=== PATIENT | female | born 1950 | race African-American/Black ===

== ENCOUNTER → 2020-01-09 | Outpatient (CLI) | payer OTHER, MEDICAID ==
[~2020-01-09] MED LIST: PRED50TA PO
--- NOTE | 2020-01-09 16:48 | RAD ---
EXAM: Left knee, 3 views. HISTORY: Fall. Pain. COMPARISON: None. FINDINGS: 3 views of the left knee are obtained. There is severe medial and patellofemoral compartment joint space narrowing, subchondral sclerosis and spurring. There is also mild lateral compartment spurring. There is a moderate joint effusion. There is no fracture, dislocation or subluxation. There is suspected genu varus. IMPRESSION: 1. Severe medial and patellofemoral compartment and mild lateral compartment osteoarthritis of the left knee. 2. Moderate left knee effusion. 3. Mild left genu varus. Electronically signed by: Ligia Mccoy MD (01/09/2020 4:45 PM) [id number]
--- NOTE | 2020-01-09 16:48 | RAD ---
EXAM: Right foot, 3 views. HISTORY: Pain. Fall. COMPARISON: None. FINDINGS: 3 views of the right foot are obtained. There is no acute fracture, dislocation or subluxation. There is degenerative spurring or there are chronic nonunited fracture fragments along the inferior medial malleolus. There is enthesopathy at Achilles tendon insertion. IMPRESSION: No acute osseous finding. Electronically signed by: Ligia Mccoy MD (01/09/2020 4:46 PM) [id number]
== END | disposition home or self-care (01) ==
LOC: DXRAD 15:42
PROVIDERS: ATTEND Physician Assistant
DX: M17.12 Unilateral primary osteoarthritis, left knee (principal); M76.61 Achilles tendinitis, right leg; M76.9 Unspecified enthesopathy, lower limb, excluding foot; M25.462 Effusion, left knee; M21.162 Varus deformity, not elsewhere classified, left knee
CPT/HCPCS: 73562; 73630

== ENCOUNTER 2020-01-12 16:28 | Emergency (ER) | payer OTHER, MEDICAID ==
[~2020-01-12] VITALS: Ht 152.4 cm; Wt 103.8 kg
[2020-01-12] MEDS ORDERED: IPRATROPIUM BROMIDE 0.5 MG/2.5 ML NEBU. ONE (17:10)
--- NOTE | 2020-01-12 17:11 | EKG ---
[address] [address] Test Date: 2020-01-12 Test Time: 16:48:52 Pat Name: ALIREZA PETERSON Department: Room: Gender: F Otorhinolaryngologist: : 1950 Requested By: NORA WU Order Number: [id number] Reading MD: Measurements Intervals [place] Rate: 96 P: 28 MO: 126 QRS: 38 QRSD: 76 T: 30 QT: 326 QTc: 418 Interpretive Statements SINUS RHYTHM R-S TRANSITION ZONE IN V LEADS DISPLACED TO THE RIGHT OTHERWISE NORMAL ECG RI6.02 No previous ECG available for comparison
[2020-01-12] MEDS ORDERED: methylPREDNISolone SOD SUCC PF 125 MG/2 ML VIAL. IV ONE (17:15)
[2020-01-12] MEDS ORDERED: ALBUTEROL SULFATE 2.5 MG/3 ML NEBU. NEB ONE (17:15)
[2020-01-12] MEDS ORDERED: IPRATRPIUM/ALBUTEROL 0.5/2.5MG 3 ML NEBU. NEB ONE (17:15)
--- NOTE | 2020-01-12 17:30 | RAD ---
EXAM: CHEST ONE VIEW. HISTORY: Cough. COMPARISON: None. FINDINGS: A frontal view of the chest is obtained. The inspiration is small. There is moderate elevation of the right hemidiaphragm. There is mild atelectasis in the lung bases. There is no pneumothorax or pleural effusion. The heart is not enlarged. IMPRESSION: 1. Small inspiration. Basilar atelectasis Electronically signed by: Jimmie Powell MD (01/12/2020 5:27 PM) [facility]
[2020-01-12 17:39] VITALS: BP 137/68
--- NOTE | 2020-01-12 17:41 | PHYS DOC ---
General Adult EDM: Chief Complaint: CHEST PAIN HPI: HPI: Patient is a 69-year-old non-smoking female with a history of oxygen dependent COPD. She presents today with a 12-hour history of progressive shortness of breath and lower extremity swelling. She states she has been taking her nebulizers as prescribed but continues to be more short of breath. She states she is coughing but it is nonproductive she does have some chest pain when she coughs. She denies hemoptysis.] (NORA WU DO) Review of Systems: Review of Systems: Constitutional: Denies fever or chills Eyes: Denies change in visual acuity HENT: Denies nasal congestion or sore throat Respiratory: Per HPI Cardiovascular: Denies chest pain or edema GI: Denies abdominal pain, nausea, vomiting, bloody stools or diarrhea : Denies dysuria Musculoskeletal: Denies back pain or joint pain Integument: Denies rash Neurologic: Denies headache, focal weakness or sensory changes Endocrine: Denies polyuria or polydipsia Lymphatic: Denies swollen glands Psychiatric: Reports anxiety (NORA WU DO) Heart Score: Risk Factors: Risk Factors: DM, Current or recent (<one month) smoker, HTN, HLP, family history of CAD, obesity. Risk Scores: Score 0 - 3: 2.5% MACE over next 6 weeks - Discharge Home Score 4 - 6: 20.3% MACE over next 6 weeks - Admit for Clinical Observation Score 7 - 10: 72.7% MACE over next 6 weeks - Early Invasive Strategies (NORA WU DO) Current Medications: Current Meds: Current Medications Medications (Trade) Dose Ordered Sig/Madhuri Start Time Stop Time Status Last Admin Dose Admin Albuterol Sulfate (Ventolin) 2.5 mg 1X ONCE 01/12/20 17:15 01/12/20 17:16 UNV 01/12/20 17:15 2.5 MG Albuterol/ Ipratropium (Duoneb) 6 ml 1X ONCE 01/12/20 17:15 01/12/20 17:16 UNV 01/12/20 17:31 6 ML Ipratropium [place] (Atrovent) 0.5 mg STK-MED ONCE 01/12/20 17:10 01/12/20 17:10 DC Methylprednisolone Sodium Succinate (SOLU-Medrol 125MG VIAL) 125 mg 1X ONCE 01/12/20 17:15 01/12/20 17:16 UNV 01/12/20 17:15 125 MG (NORA WU DO) Physical Exam: PE: Constitutional: Well developed, well nourished, mild respiratory distress, non- toxic appearance. [] HENT: Normocephalic, atraumatic, bilateral external ears normal, oropharynx moist, no oral exudates, nose normal. [] Eyes: PERRLA, EOMI, conjunctiva normal, no discharge. [] Neck: Normal range of motion, no tenderness, supple, no stridor. [] Cardiovascular:Heart rate regular rhythm, no murmur [] Lungs & Thorax: Scattered wheezes throughout both lungs no rales [] Abdomen: Bowel sounds normal, soft, no tenderness, no masses, no pulsatile masses. [] Skin: Warm, dry, no erythema, no rash. [] Back: No tenderness, no CVA tenderness. [] Extremities: 2+ lower extremity edema equal bilaterally. [] Neurologic: Alert and oriented X 3, normal motor function, normal sensory fu nction, no focal deficits noted. [] Psychologic: Anxious. [] (NORA WU DO) EKG: EKG: EKG: Normal sinus rhythm rate of [address]-T changes [] (NORA WU DO) Radiology/Procedures: Radiology/Procedures: [PROCEDURE: CHEST AP ONLY EXAM: CHEST ONE VIEW. HISTORY: Cough. COMPARISON: None. FINDINGS: A frontal view of the chest is obtained. The inspiration is small. There is moderate elevation of the right hemidiaphragm. There is mild atelectasis in the lung bases. There is no pneumothorax or pleural effusion. The heart is not enlarged. IMPRESSION: 1. Small inspiration. Basilar atelectasis] (NORA WU DO) Course & Med Decision Making: Course & Med Decision Making Pertinent Labs and Imaging studies reviewed. (See chart for details) [] (NORA WU DO) Course & Med Decision Making The patient is continued to maintain an oxygen saturation of 95%. She has not dropped below 90%. She is on her normal 3 L. She is still slightly tachycardic, but has had 2 DuoNeb treatments. Repeat exam shows some mild wheezing, but seems much better than what my colleague reported on her initial evaluation. The patient would like to go home. I believe this is reasonable. She will continue her breathing treatments. She has medication at home. I will give her 3 more days of prednisone 50 mg daily. She will start this tomorrow. She is stable for discharge at this time. (MIKI LENZ DO) Dragon Disclaimer: Dragon Disclaimer: This electronic medical record was generated, in whole or in part, using a voice recognition dictation system. (NORA WU DO) Departure Departure: Impression: Primary Impression: COPD with acute exacerbation Disposition: HOME/RESIDENCE PRIOR TO ADM Condition: STABLE Referrals: JAJA TRUONG MD (PCP) Patient Instructions: Chronic Obstructive Pulmonary Disease Exacerbation, Asxx-id-[id number] Scripts Prednisone (PREDNISONE) 50 Mg Tablet 1 TAB PO DAILY for COPD for 3 Days, #3 TAB Prov: MIKI LENZ DO 01/12/20 Justification of Admission: Justification of Admission: Justification of Admission Dx: N/A (MIKI LENZ DO) NORA WU DO Jan 12, 2020 17:40 MIKI LENZ DO Jan 12, 2020 19:15
[2020-01-12 17:56] LABS: BASO % 1 % (0-3); EOS # 0.2 x10^3/uL (0.0-0.7); EOS % 2 % (0-3); HEMATOCRIT 31.5 % (36.0-47.0); HEMOGLOBIN 9.6 g/dL (12.0-15.5); LYMPH # 1.1 x10^3/uL (1.0-4.8); LYMPH % 13 % (24-48); MEAN CORPUSCULAR HEMOGLOBIN 27 pg (25-35); MEAN CORPUSCULAR HGB CONC 31 g/dL (31-37); MEAN CORPUSCULAR VOLUME 88 fL (79-100); MONO # 0.8 x10^3/uL (0.0-1.1); MONO % 9 % (0-9); NEUT # 6.4 x10^3uL (1.8-7.7); NEUT % 75 % (31-73); PLATELET COUNT 284 x10^3/uL (140-400); RED BLOOD COUNT 3.59 x10^6/uL (3.50-5.40); RED CELL DISTRIBUTION WIDTH 16.2 % (11.5-14.5); WHITE BLOOD COUNT 8.5 x10^3/uL (4.0-11.0)
[2020-01-12 18:02] LABS: BACTERIA,URINE 0 /HPF (0-FEW); BILIRUBIN,URINE NEG (NEG); CLARITY,URINE HAZY; COLOR,URINE YELLOW; GLUCOSE,URINE NEG (NEG); NITRITE,URINE NEG (NEG); SQUAMOUS EPITHELIAL CELL,UR FEW /LPF; WBC,URINE OCC /HPF (0-4)
[2020-01-12 18:03] LABS: YEAST,URINE PRESENT /HPF
[2020-01-12 18:04] LABS: CALCIUM 8.6 mg/dL (8.5-10.1); CREATININE 0.8 mg/dL (0.6-1.0); GFR 85.6; POTASSIUM 3.7 mmol/L (3.5-5.1)
[2020-01-12 18:16] LABS: ALBUMIN 3.2 g/dL (3.4-5.0); ALBUMIN/GLOBULIN RATIO 0.8 (1.0-1.7); TOTAL BILIRUBIN 0.5 mg/dL (0.2-1.0); TOTAL PROTEIN 7.3 g/dL (6.4-8.2)
[2020-01-12] MEDS ORDERED: PRED50TA PO (19:15)
== END 2020-01-12 19:25 | disposition home or self-care (01) ==
LOC: ER 16:28
DX: J44.1 Chronic obstructive pulmonary disease with (acute) exacerbation (principal); R60.0 Localized edema; Z20.828 Contact with and (suspected) exposure to other viral communicable diseases
CPT/HCPCS: 36415; 71045; 80053; 81001; 83880; 84484; 85025; 93005; 94640; 96374; 99285; J2930; J7613; U0003

== ENCOUNTER 2020-02-02 12:50 | Inpatient (IN) | payer OTHER, MEDICAID ==
[~2020-02-02] VITALS: Ht 152.4 cm; Wt 95.3 kg
--- NOTE | 2020-02-02 12:52 | PHYS DOC ---
Past History Past Medical History: Anxiety, COPD, Depression, High Cholesterol, Hypertension Past Surgical History: No Surgical History Smoking: Non-smoker Alcohol Use: None General Adult EDM: Chief Complaint: SHORTNESS OF BREATH HPI: HPI: Patient is a 69 year old female who presents via EMS for evaluation of shortness of air and bilateral leg swelling and pain. Patient currently lives at home alone. Her symptoms been progressing for the past several days. Patient reports cough and recent fever and chills. Patient is had multiple negative COVID swabs. Patient does have history of pulmonary embolism in the past and is currently taking an unknown blood thinner. Patient has some mild conversational dyspnea on arrival. Vital signs were stable on arrival Review of Systems: Review of Systems: Constitutional: recent fever or chills Eyes: Denies change in visual acuity HENT: has nasal congestion no sore throat Respiratory: has cough and shortness of breath Cardiovascular: Denies chest pain bilateral lower leg edema GI: Denies abdominal pain, nausea, vomiting, bloody stools or diarrhea : Denies dysuria Musculoskeletal: Denies back pain or joint pain Integument: Denies rash Neurologic: Denies headache, focal weakness or sensory changes Endocrine: Denies polyuria or polydipsia Lymphatic: Denies swollen glands Psychiatric: Denies depression or anxiety Heart Score: Risk Factors: Risk Factors: DM, Current or recent (<one month) smoker, HTN, HLP, family history of CAD, obesity. Risk Scores: Score 0 - 3: 2.5% MACE over next 6 weeks - Discharge Home Score 4 - 6: 20.3% MACE over next 6 weeks - Admit for Clinical Observation Score 7 - 10: 72.7% MACE over next 6 weeks - Early Invasive Strategies Allergies: Allergies: Allergies Coded Allergies Type Severity Reaction Last Updated Verified No Known Drug Allergies 01/12/20 No Physical Exam: PE: Constitutional: Well developed, well nourished, moderate acute distress. [] HENT: Normocephalic, atraumatic, bilateral external ears normal, oropharynx moist, no oral exudates, nose normal. [] Eyes: PERRL, EOMI, conjunctiva normal, no discharge. [] Neck: Normal range of motion, no tenderness, supple, no stridor. [] Cardiovascular:Heart rate regular rhythm, no murmur [] Lungs & Thorax: Bilateral breath sounds clear to auscultation [] Abdomen: Bowel sounds diminished, soft, no tenderness, no masses. [] Skin: Warm, dry, lower leg bilateral erythema. [] Back: No tenderness, no CVA tenderness. [] Extremities: bilateral tenderness, no cyanosis, ROM intact, pitting edema. [] Neurologic: Alert and oriented X 3, normal motor function, normal sensory function, no focal deficits noted. [] Psychologic: Affect normal, judgement normal, mood normal. [] Current Patient Data: Labs: Laboratory Tests Test 02/02/20 13:08 02/02/20 13:15 Urine Collection Type Unknown Urine Color Yellow Urine Clarity Clear Urine pH 8.0 Urine Specific [place] 1.020 Urine Protein Neg Urine Glucose (UA) Neg mg/dL Urine Ketones (Stick) Neg mg/dL Urine Blood Neg Urine Nitrite Neg Urine Bilirubin Neg Urine Urobilinogen Dipstick 0.2 mg/dL Urine Leukocyte Esterase Neg Urine RBC 1-2 /HPF Urine WBC Occ /HPF Urine Squamous Epithelial Cells Few /LPF Urine Bacteria 0 /HPF White Blood Count 5.2 x10^3/uL Red Blood Count 3.81 x10^6/uL Hemoglobin 10.3 g/dL Hematocrit 33.6 % Mean Corpuscular Volume 88 fL Mean Corpuscular Hemoglobin 27 pg Mean Corpuscular Hemoglobin Concent 31 g/dL Red Cell Distribution Width 16.1 % Platelet Count 312 x10^3/uL Neutrophils (%) (Auto) 72 % Lymphocytes (%) (Auto) 15 % Monocytes (%) (Auto) 10 % Eosinophils (%) (Auto) 2 % Basophils (%) (Auto) 0 % Neutrophils # (Auto) 3.7 x10^3uL Lymphocytes # (Auto) 0.8 x10^3/uL Monocytes # (Auto) 0.5 x10^3/uL Eosinophils # (Auto) 0.1 x10^3/uL Basophils # (Auto) 0.0 x10^3/uL Prothrombin Time 10.2 SEC Prothromb Time International Ratio 1.0 Sodium Level 142 mmol/L Potassium Level 4.2 mmol/L Chloride Level 100 mmol/L Carbon Dioxide Level 42 mmol/L Anion Gap 0 Blood Urea Nitrogen 8 mg/dL Creatinine 0.9 mg/dL Estimated GFR (Cockcroft-Gault) 74.7 BUN/Creatinine Ratio 9 Glucose Level 90 mg/dL Lactic Acid Level 0.8 mmol/L Calcium Level 9.1 mg/dL Total Bilirubin 0.2 mg/dL Aspartate Amino Transf (AST/SGOT) 16 U/L Alanine Aminotransferase (ALT/SGPT) 17 U/L Alkaline Phosphatase 96 U/L Troponin I Quantitative < 0.017 ng/mL MI-Pcn-H-Type Natriuretic Peptide 53 pg/mL Total Protein 7.4 g/dL Albumin 3.1 g/dL Albumin/Globulin Ratio 0.7 Current Medications Medications (Trade) Dose Ordered Sig/Madhuri Route PRN Reason Start Time Stop Time Status Last Admin Dose Admin Sodium Chloride (Normal Saline Flush) 10 ml 1X ONCE IV 02/02/20 13:00 02/02/20 13:02 DC Ceftriaxone Sodium 1 gm/ Sodium Chloride 50 ml @ 100 mls/hr 1X ONCE IV 02/02/20 13:15 02/02/20 13:44 DC 02/02/20 13:28 Sodium Chloride 50 ml @ As Directed STK-MED ONCE .ROUTE 02/02/20 13:22 02/02/20 13:22 DC Ceftriaxone Sodium (Rocephin) 1 gm STK-MED ONCE .ROUTE 02/02/20 13:22 02/02/20 13:22 DC EKG: EKG: EKG showed normal sinus rhythm, rate mid 90s, leftward axis, significant artifact in lead V6, not STEMI read at 1:10 PM [] Radiology/Procedures: Radiology/Procedures: [place] [address] IMAGING REPORT Signed PATIENT: ALIREZA PETERSON JACCOUNT: [id number] : 1950 LOCATION: ER AGE: 69 SEX: F EXAM STATUS: REG ER ORD. PHYSICIAN: ANNELISE RODRÍGUEZ DO REASON: short of air PROCEDURE: PORTABLE CHEST 1V Examination: PORTABLE CHEST 1V History: Reason: short of air / Spl. Instructions: / History: Comparison/Correlation: 01/12/2020 AP view of the chest Findings: Portable frontal view chest was obtained. Borderline cardiomegaly noted. Evaluation of the retrocardiac region is limited due to underpenetrated technique. Pulmonary vasculature is borderline appearance but limited pulmonary inflation may partially account for this finding. No definite or significant pleural effusion. Impression: No definite infiltrate. Consider lateral view for more complete assessment of the lung bases if needed. Electronically signed by: Nelson Mccormick MD (02/02/2020 1:41 PM) [id number] DICTATED AND SIGNED BY: NELSON MCCORMICK MD DATE: 02/02/20 1342 CC: JAJA TRUONG MD; ANNELISE RODRÍGUEZ DO ~ [] Course & Med Decision Making: Course & Med Decision Making Pertinent Labs and Imaging studies reviewed. (See chart for details) [] Dragon Disclaimer: Dragon Disclaimer: This electronic medical record was generated, in whole or in part, using a voice recognition dictation system. 1530 Dr. Miranda called back and accepted patient for admission. Will admit to telemetry bed. Patient was given Solu-Medrol as well as Rocephin. Blood cultures were collected as well. Patient breathing easier at this time. Departure Departure: Impression: Primary Impression: Acute bronchitis with COPD Additional Impression: Person under investigation for COVID-19 Disposition: ADMITTED INPATIENT (Dr. Miranda to admit to telemetry bed) Admitting Physician: Nina Miranda Condition: STABLE Referrals: JAJA TRUONG MD (PCP) Justification of Admission: Justification of Admission: Justification of Admission Dx: Yes Acute COPD Exacerbation: Acute COPD Exacerbation ANNELISE RODRÍGUEZ DO Feb 02, 2020 12:52
[2020-02-02] MEDS ORDERED: 0.9 % SODIUM CHLORIDE 10 ML DISP.SYRIN. IV ONE (13:00)
[2020-02-02] MEDS ORDERED: cefTRIAXone SODIUM 1 GM VIAL ONE (13:22)
[2020-02-02] MEDS ORDERED: IV NORMAL SALINE 50ML 50 ML ONE (13:22)
[2020-02-02 13:42] LABS: BASO % 0 % (0-3); EOS # 0.1 x10^3/uL (0.0-0.7); EOS % 2 % (0-3); HEMATOCRIT 33.6 % (36.0-47.0); HEMOGLOBIN 10.3 g/dL (12.0-15.5); LYMPH # 0.8 x10^3/uL (1.0-4.8); LYMPH % 15 % (24-48); MEAN CORPUSCULAR HEMOGLOBIN 27 pg (25-35); MEAN CORPUSCULAR HGB CONC 31 g/dL (31-37); MEAN CORPUSCULAR VOLUME 88 fL (79-100); MONO # 0.5 x10^3/uL (0.0-1.1); MONO % 10 % (0-9); NEUT # 3.7 x10^3uL (1.8-7.7); NEUT % 72 % (31-73); PLATELET COUNT 312 x10^3/uL (140-400); RED BLOOD COUNT 3.81 x10^6/uL (3.50-5.40); RED CELL DISTRIBUTION WIDTH 16.1 % (11.5-14.5); WHITE BLOOD COUNT 5.2 x10^3/uL (4.0-11.0)
--- NOTE | 2020-02-02 13:43 | RAD ---
Examination: PORTABLE CHEST 1V History: Reason: short of air / Spl. Instructions: / History: Comparison/Correlation: 01/12/2020 AP view of the chest Findings: Portable frontal view chest was obtained. Borderline cardiomegaly noted. Evaluation of the retrocardiac region is limited due to underpenetrated technique. Pulmonary vasculature is borderline appearance but limited pulmonary inflation may partially account for this finding. No definite or significant pleural effusion. Impression: No definite infiltrate. Consider lateral view for more complete assessment of the lung bases if needed. Electronically signed by: Nelson Allred MD (02/02/2020 1:41 PM) [id number]
[2020-02-02 14:00] LABS: ALBUMIN 3.1 g/dL (3.4-5.0); ALBUMIN/GLOBULIN RATIO 0.7 (1.0-1.7); CALCIUM 9.1 mg/dL (8.5-10.1); CREATININE 0.9 mg/dL (0.6-1.0); GFR 74.7; POTASSIUM 4.2 mmol/L (3.5-5.1); TOTAL BILIRUBIN 0.2 mg/dL (0.2-1.0); TOTAL PROTEIN 7.4 g/dL (6.4-8.2)
[2020-02-02 14:04] LABS: BACTERIA,URINE 0 /HPF (0-FEW); BILIRUBIN,URINE NEG (NEG); CLARITY,URINE CLEAR; COLOR,URINE YELLOW; GLUCOSE,URINE NEG (NEG); NITRITE,URINE NEG (NEG); SQUAMOUS EPITHELIAL CELL,UR FEW /LPF; UROBILINOGEN,URINE 0.2 mg/dL (0.2 mg/dL); WBC,URINE OCC /HPF (0-4)
[2020-02-02] MEDS ORDERED: methylPREDNISolone SOD SUCC PF 125 MG/2 ML VIAL. IV ONE (15:00)
[2020-02-02] MEDS ORDERED: ONDANSETRON PF 4 MG/2 ML VIAL. IVP PRN (15:45)
[2020-02-02] MEDS ORDERED: AZITHROMYCIN 250 MG TABLET. PO ONE (19:00)
[2020-02-02] MEDS ORDERED: ACETAMINOPHEN 325 MG TABLET PO ONE (19:15)
[2020-02-02] MEDS: DULoxetine HCL 60 MG CAPSULE.DR PO SCH (20:57)
[2020-02-02] MEDS: METOPROLOL TART IMMED RELEASE 50 MG TABLET PO SCH (20:58)
[2020-02-02] MEDS: GABAPENTIN 300 MG CAPSULE. PO SCH (20:58)
[2020-02-02] MEDS: MONTELUKAST 10 MG TABLET. PO SCH (20:58)
[2020-02-02] MEDS: APIXABAN 5 MG TABLET. PO SCH (20:58)
[2020-02-02] MEDS: ATORVASTATIN CALCIUM 20 MG TABLET PO SCH (20:59)
[2020-02-02] MEDS ORDERED: MONTELUKAST 10 MG TABLET. PO SCH (21:00)
[2020-02-02] MEDS: PANTOPRAZOLE 40 MG TABLET. PO SCH (21:00)
[2020-02-02] MEDS: methylPREDNISolone SOD SUCC PF 40 MG/ML VIAL. IV SCH (21:01)
[2020-02-02 21:18] VITALS: BP 143/69
[2020-02-02] MEDS: DOXEPIN HCL 10 MG CAPSULE PO SCH (21:34)
[2020-02-03] MEDS: methylPREDNISolone SOD SUCC PF 40 MG/ML VIAL. IV SCH ×3 (05:59→21:05)
[2020-02-03 07:00] VITALS: BP 131/76
[2020-02-03] MEDS: ASPIRIN ENTERIC COATED 81 MG TABLET.DR. PO SCH (08:32)
[2020-02-03] MEDS: APIXABAN 5 MG TABLET. PO SCH ×2 (08:32→21:05)
[2020-02-03] MEDS: amLODIPine BESYLATE 10 MG TABLET PO SCH (08:32)
[2020-02-03] MEDS: METOPROLOL TART IMMED RELEASE 50 MG TABLET PO SCH ×2 (08:32→21:06)
[2020-02-03] MEDS: LACTOBACILLUS RHAMNOSUS GG 1 CAPSULE. PO SCH ×2 (08:32→21:06)
[2020-02-03] MEDS: PANTOPRAZOLE 40 MG TABLET. PO SCH ×2 (08:32→18:04)
[2020-02-03 11:00] VITALS: BP 131/80
[2020-02-03 15:00] VITALS: BP 140/85
--- NOTE | 2020-02-03 18:12 | HP ---
ADMIT DATE: 02/02/2020 HISTORY OF PRESENT ILLNESS: The patient is a 69-year-old -[place] female patient who was brought to the Emergency Room by EMS for evaluation of shortness of air and bilateral leg swelling and pain. The patient currently lives at home alone. Her symptoms have been progressing for the past several days. The patient reports cough and recent fever and chills. The patient has multiple negative COVID swabs, has had a history of pulmonary embolism in the past and is currently taking an unknown blood thinner. The patient has some mild conversational dyspnea on arrival. By the time she arrived to the Emergency Room, her vital signs apparently were stable. She was extensively investigated in the Emergency Room and has had a chest x-ray, which basically showed pulmonary vasculature is borderline appearance, but limited and pulmonary infiltration may particular account for this finding. No definite or significant pleural effusion. Her white cell count was 5200. Her lab work was essentially unremarkable. Her prothrombin time and INR were normal. Urinalysis was essentially unremarkable and the patient was admitted with acute bronchitis with possible COPD exacerbation. She apparently swabbed for COVID-19; however, she was negative as she had swab at her primary care physician, Dr. Serrano that was negative. The patient was treated with IV Solu-Medrol and Rocephin, was admitted for further evaluation and treatment. PAST MEDICAL HISTORY: Significant for asthmatic bronchitis versus COPD, hyperlipidemia, hypertension, generalized osteoarthritis, pulmonary embolism and chronic hypoxic respiratory failure. 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 PAST SURGICAL HISTORY: Left wrist fracture, she is status post open reduction and internal fixation. She has also , esophagogastroduodenoscopy and colonoscopy. ALLERGIES: SHE IS ALLERGIC TO KEPPRA THAT WAS GIVEN TO HER BY MISTAKE, BUT SHE HAS NO KNOWN OTHER DRUG ALLERGIES. MEDICATIONS: We do not know her medication list and we would contact her [id number] to give us the list of medication. FAMILY HISTORY: She has 6 brothers, 4 because of myocardial infarction, CVA. She has 2 brothers still alive. She has 4 sisters, two of them at childhood and one of heart failure. Her father at the age of 76 because of myocardial infarction. Mother at age of 71 because of myocardial infarction. SOCIAL HISTORY: She is in the process of her . She has one son. She never smoked, never drink alcohol or use any drugs. 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 She has also been a [employer]. REVIEW OF SYSTEMS: The patient has bilateral cataracts, but that has not been operated on, but denied any glaucoma or macular degeneration. Denied any earache, tinnitus or sensorineural deafness. Denied any nosebleeds, stuffy nose or postnasal drip. Denied any sore throat, sore tongue, toothache, hoarseness of voice or difficulty swallowing. Denied any nausea, vomiting, diarrhea or constipation. Denied any hematemesis, melena, or hematochezia. Denied any dysuria, frequency or hematuria. Did complain of chest discomfort, cough or shortness of breath. Denied any orthopnea or paroxysmal nocturnal dyspnea. PHYSICAL EXAMINATION: GENERAL: On arrival to the Emergency Room, she was definitely tachypneic and was pale, but no jaundice, cyanosis or thyromegaly. No jugular venous distention. No limb edema. VITAL SIGNS: Her heart rate was 93, blood pressure was 139/89, temperature was 99, respiratory rate was 40 and oxygen saturation was 97%. She is on 3 liters oxygen by nasal cannula. HEAD, EYES, EARS, NOSE AND THROAT: Showed normocephalic, atraumatic. NECK: Supple. HEART: Normal first and second heart sounds. No gallop, rub or murmur. CHEST: Shows central trachea, equal bilateral expansion, air entry, vesicular sounds with scattered bilateral crepitation. This seems to be coarse and early inspiratory perhaps indicating some form of interstitial lung disease. ABDOMEN: Markedly distended, soft, nontender. NEUROLOGICALLY: She was awake, alert, responding appropriately. EXTREMITIES: She moves extremities without difficulty. She ambulates with a walker. She has marked bilateral lower extremity edema. LABORATORY DATA: Her lab work on arrival showed a white cell count of 5200, hemoglobin 10, hematocrit 33, MCV 88, and platelet count of 312,000. Her serum sodium was 142, potassium 4.2, chloride 100, bicarbonate 42, anion gap of 0, BUN of 8, creatinine was 0.9, estimated GFR was 75 mL per minute. Her glucose was 90. Lactic acid was 0.8, calcium was 9.1. Total bilirubin, AST, ALT, alkaline phosphatase were normal. Total protein was 7.4, albumin was 3.1. Her prothrombin time, INR and aPTT are normal. Urinalysis essentially unremarkable. She was swabbed and her COVID (coronavirus) by PCR was not detectable. Her chest x-ray was unremarkable. ASSESSMENT AND PLAN: The patient was treated with IV Solu-Medrol as well as azithromycin and was admitted and continued on ceftriaxone and methylprednisone and apixaban together with other medications that include doxepin 60 mg once a day, metoprolol 50 mg twice a day, Protonix 40 mg twice a day, gabapentin 300 mg at bedtime, duloxetine 60 mg at bedtime, atorvastatin 80 mg at bedtime, Singulair 10 mg at bedtime, guaifenesin 600 mg twice a day, albuterol 2.5 mg by nebulizer every 6 hours. We will follow her labs and decide on further management accordingly. NELSON HALLMAN MD DR: TYLER/kathy JOB#: [id number] / [id number]
[2020-02-03 19:00] VITALS: BP 135/82
--- NOTE | 2020-02-03 19:10 | PN ---
DATE: 02/03/2020 SUBJECTIVE: When I examined her today, she was sitting on the edge of the bed, continued to have some conversational dyspnea, cough, which is mostly dry and hacking. PHYSICAL EXAMINATION: GENERAL: When I examined her, she looked pale, no jaundice, cyanosis or thyromegaly. No jugular venous distention or limb edema. VITAL SIGNS: Her heart rate was 96, blood pressure 131/80, temperature 96.9, respiratory rate was 27 and oxygen saturation was 92% on 3 liters of oxygen. HEAD, EYES, EARS, NOSE, AND THROAT: Normocephalic, atraumatic. NECK: Supple. HEART: Showed normal first and second heart sounds. No gallop or murmur. CHEST: Clear to auscultation. Equally reduced expansion, reduced air entry, vesicular sounds with bilateral basal crepitation that are coarse and early inspiratory. I could not appreciate any rhonchi. ABDOMEN: Distended, soft, nontender. NEUROLOGIC: She is awake, alert, responding appropriately. Cranial nerves are intact. She moves extremities without difficulty. LABORATORY DATA: She has no lab work done today; however, her white cell count was 5200, hemoglobin 10, hematocrit 33, MCV 88, and platelet count 312,000. Her BUN is 8 and creatinine was 0.9. ASSESSMENT: 1. Probably community-acquired pneumonia. 2. Acute on chronic hypoxic respiratory failure. 3. Chronic obstructive pulmonary disease exacerbation. She has a multitude of other medical problems including hypertension, hyperlipidemia. She also has history of pulmonary embolism. PLAN: To continue with IV antibiotic. Continue with Solu-Medrol and bronchodilator. Continue with all her other medications. I will repeat all her lab work. I started her empirically on apixaban. She does not know her blood thinner and we will contact Dr. Serrano's office to get all the information. NELSON HALLMAN MD DR: TYLER/kathy JOB#: [id number] / [id number]
[2020-02-03] MEDS: DOXEPIN HCL 10 MG CAPSULE PO SCH (21:00)
[2020-02-03] MEDS: AZITHROMYCIN 250 MG TABLET. PO SCH (21:05)
[2020-02-03] MEDS: GABAPENTIN 300 MG CAPSULE. PO SCH (21:06)
[2020-02-03] MEDS: ATORVASTATIN CALCIUM 20 MG TABLET PO SCH (21:06)
[2020-02-03] MEDS: MONTELUKAST 10 MG TABLET. PO SCH (21:06)
[2020-02-03] MEDS: DULoxetine HCL 60 MG CAPSULE.DR PO SCH (21:06)
[2020-02-03 23:00] VITALS: BP 128/73
[2020-02-03] MEDS: ALBUTEROL SULFATE 2.5 MG/3 ML NEBU. NEB PRN (23:12)
[2020-02-04] VITALS (8 sets, daily range): BP systolic 100–151; BP diastolic 43–78
[2020-02-04] MEDS: methylPREDNISolone SOD SUCC PF 40 MG/ML VIAL. IV SCH ×3 (05:32→20:10)
[2020-02-04 06:16] LABS: HEMATOCRIT 32.6 % (36.0-47.0); RED BLOOD COUNT 3.75 x10^6/uL (3.50-5.40); RED CELL DISTRIBUTION WIDTH 15.8 % (11.5-14.5); WHITE BLOOD COUNT 7.9 x10^3/uL (4.0-11.0)
[2020-02-04 06:30] LABS: ALBUMIN 3.3 g/dL (3.4-5.0); ALBUMIN/GLOBULIN RATIO 0.8 (1.0-1.7); CREATININE 0.8 mg/dL (0.6-1.0); GFR 85.6; POTASSIUM 4.5 mmol/L (3.5-5.1); TOTAL BILIRUBIN 0.2 mg/dL (0.2-1.0); TOTAL PROTEIN 7.6 g/dL (6.4-8.2)
[2020-02-04] MEDS: ACETAMINOPHEN 325 MG TABLET PO PRN (06:54)
[2020-02-04] MEDS: APIXABAN 5 MG TABLET. PO SCH ×2 (08:34→20:11)
[2020-02-04] MEDS: LACTOBACILLUS RHAMNOSUS GG 1 CAPSULE. PO SCH ×2 (08:34→20:11)
[2020-02-04] MEDS: PANTOPRAZOLE 40 MG TABLET. PO SCH ×2 (08:34→18:34)
[2020-02-04] MEDS: ASPIRIN ENTERIC COATED 81 MG TABLET.DR. PO SCH (08:34)
[2020-02-04] MEDS: amLODIPine BESYLATE 10 MG TABLET PO SCH (08:34)
[2020-02-04] MEDS: METOPROLOL TART IMMED RELEASE 50 MG TABLET PO SCH ×2 (08:35→20:12)
[2020-02-04] MEDS ORDERED: POTA10TA5 PO (13:12)
[2020-02-04] MEDS ORDERED: FUROSEMIDE 20 MG/2 ML VIAL IVP ONE (13:15)
--- NOTE | 2020-02-04 14:38 | PN ---
DATE: 02/04/2020 SUBJECTIVE: The patient is sitting on the edge of the bed, eating her lunch. She continued to have conversational dyspnea. She also complained of dyspnea on minimal exertion. PHYSICAL EXAMINATION: GENERAL: When I examined her, she looked pale, no jaundice, cyanosis or thyromegaly. No jugular venous distention. No limb edema. VITAL SIGNS: Her heart rate was 92, blood pressure was 128/73, temperature was 98.4, respiratory rate was 28 and oxygen saturation was 98% on 3 liters of oxygen. HEENT: Showed normocephalic, atraumatic. NECK: Supple. CARDIAC: Normal first and second heart sounds. No gallop, rub or murmur. CHEST: Shows central trachea, equally reduced expansion, reduced air entry, vesicular sounds with bilateral basal crepitation. I could not really appreciate any rhonchi. ABDOMEN: Distended, soft, nontender. NEUROLOGIC: She was awake, alert, responding appropriately. All cranial nerves intact. She moves extremities without difficulty. She ambulates with a walker. Her intake and output were incompletely recorded. LABORATORY DATA: Her lab work this morning showed a white cell count 7900, hemoglobin 10, hematocrit 33, MCV 87, and platelet count 358,000. Her chemistry showed a serum sodium 140, potassium 4.5, chloride 98, bicarbonate 39, anion gap of 3, BUN 16, creatinine 0.8, estimated GFR was 85 mL per minute, her glucose 125, calcium was 9. Total bilirubin, AST, ALT, alkaline phosphatase were normal. Total protein was 7.6, albumin was 3.3. Her prothrombin time and INR are normal and her coronavirus by PCR was not detected. ASSESSMENT: 1. Acute on chronic hypoxic respiratory failure. 2. Chronic obstructive pulmonary disease exacerbation, probable community-acquired pneumonia. 3. 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 She has also pulmonary embolism for which he is on apixaban. Other medical problems include hypertension, hyperlipidemia. PLAN: My plan is to continue with IV antibiotic. Continue with steroids, continue with inhalers. I will add Lasix 20 mg once a day. She will be evaluated tomorrow by Dr. Dyson and if she feels better, she can be discharged home to follow with her doctor Dr. Serrano. I recommended that she should perhaps make an appointment to be seen by one of the correctional captain at [facility]. NELSON HALLMAN MD DR: TYLER/kathy JOB#: [id number] / [id number]
[2020-02-04 16:34] LABS: BGAS PH 7.3 (7.35-7.45)
[2020-02-04] MEDS: LORazepam 0.5 MG TABLET PO PRN (18:34)
[2020-02-04] MEDS: ATORVASTATIN CALCIUM 20 MG TABLET PO SCH (20:11)
[2020-02-04] MEDS: DULoxetine HCL 60 MG CAPSULE.DR PO SCH (20:11)
[2020-02-04] MEDS: AZITHROMYCIN 250 MG TABLET. PO SCH (20:11)
[2020-02-04] MEDS: MONTELUKAST 10 MG TABLET. PO SCH (20:11)
[2020-02-04] MEDS: GABAPENTIN 300 MG CAPSULE. PO SCH (20:11)
[2020-02-04] MEDS: DOXEPIN HCL 10 MG CAPSULE PO SCH (20:11)
[2020-02-04 20:51] LABS: BGAS PH 7.33 (7.35-7.45)
[2020-02-05] VITALS (23 sets, daily range): BP systolic 105–169; BP diastolic 53–93
[2020-02-05] MEDS: ACETAMINOPHEN 325 MG TABLET PO PRN (02:00)
[2020-02-05 05:53] LABS: BGAS PH 7.36 (7.35-7.45)
[2020-02-05] MEDS: methylPREDNISolone SOD SUCC PF 40 MG/ML VIAL. IV SCH ×3 (06:07→21:59)
[2020-02-05 09:14] LABS: BGAS PH 7.41 (7.35-7.45)
[2020-02-05] MEDS: FUROSEMIDE 20 MG TABLET PO SCH (09:14)
[2020-02-05] MEDS: ASPIRIN ENTERIC COATED 81 MG TABLET.DR. PO SCH (09:14)
[2020-02-05] MEDS: APIXABAN 5 MG TABLET. PO SCH ×2 (09:14→20:40)
[2020-02-05] MEDS: LACTOBACILLUS RHAMNOSUS GG 1 CAPSULE. PO SCH ×2 (09:14→20:41)
[2020-02-05] MEDS: METOPROLOL TART IMMED RELEASE 50 MG TABLET PO SCH ×2 (09:15→20:40)
[2020-02-05] MEDS: PANTOPRAZOLE 40 MG TABLET. PO SCH ×2 (09:15→16:51)
[2020-02-05] MEDS: amLODIPine BESYLATE 10 MG TABLET PO SCH (09:15)
--- NOTE | 2020-02-05 10:14 | PN ---
DATE: 02/05/2020 ATTENDING PHYSICIAN: Dr. Miranda CHIEF COMPLAINT: Shortness of breath. SUBJECTIVE: The patient says that she is still weak and tired. She is tolerating the BiPAP. The BiPAP seems to help. OBJECTIVE FINDINGS: VITAL SIGNS: Her blood pressure today is 129/68 mmHg. She is afebrile. Oxygen saturation 90% on BiPAP. HEENT: Head is without trauma. Pupils are reactive. Sclerae nonicteric. Oropharynx is clear. NECK: Supple, no bruits. LUNGS: Otherwise clear with minimal crackles at the bases. There is good air movement. The BiPAP mask is appropriate and has a good feel. CARDIOVASCULAR: Showed distant heart tones. No gallops. Peripheral pulses are palpable full. ABDOMEN: Obese, protuberant. No organomegaly. Bowel sounds were hypoactive. EXTREMITIES: Showed no cyanosis, 2+ edema. NEUROLOGIC: Focally intact. Speech is fluent. LABORATORY DATA: ABGs yesterday showed a pH of 7.33, pCO2 of 78, pO2 of 79. Today, pH of 7.36, pCO2 remains at 78 mmHg, pO2 of 80. These are basically unchanged from yesterday. Laboratory studies as noted. ASSESSMENT: 1. A 69-year-old female with acute on chronic hypercarbic respiratory failure. 2. Chronic obstructive pulmonary disease. 3. Morbid obesity. 4. Component of congestive heart failure. 5. History of pulmonary embolism, currently anticoagulated. PLAN: 1. Keep in ICU. 2. Continue BiPAP as ordered. 3. Follow up ABGs. 4. Continue antibiotics. 5. Continue nebulizers. 6. Home meds restarted. FRANNY KNIGHT MD DR: RAF/kathy JOB#: [id number] / [id number]
[2020-02-05] MEDS: LORazepam 0.5 MG TABLET PO PRN ×2 (13:11→20:40)
[2020-02-05] MEDS: DULoxetine HCL 60 MG CAPSULE.DR PO SCH (20:40)
[2020-02-05] MEDS: AZITHROMYCIN 250 MG TABLET. PO SCH (20:40)
[2020-02-05] MEDS: DOXEPIN HCL 10 MG CAPSULE PO SCH (20:41)
[2020-02-05] MEDS: MONTELUKAST 10 MG TABLET. PO SCH (20:41)
[2020-02-05] MEDS: ATORVASTATIN CALCIUM 20 MG TABLET PO SCH (20:41)
[2020-02-05] MEDS: GABAPENTIN 300 MG CAPSULE. PO SCH (20:41)
[2020-02-06] VITALS (14 sets, daily range): BP systolic 109–165; BP diastolic 59–85
[2020-02-06] MEDS: methylPREDNISolone SOD SUCC PF 40 MG/ML VIAL. IV SCH ×3 (05:36→21:45)
[2020-02-06] MEDS: LACTOBACILLUS RHAMNOSUS GG 1 CAPSULE. PO SCH ×2 (08:08→20:31)
[2020-02-06] MEDS: APIXABAN 5 MG TABLET. PO SCH ×2 (08:08→20:31)
[2020-02-06] MEDS: METOPROLOL TART IMMED RELEASE 50 MG TABLET PO SCH ×2 (08:08→20:31)
[2020-02-06] MEDS: FUROSEMIDE 20 MG TABLET PO SCH (08:08)
[2020-02-06] MEDS: amLODIPine BESYLATE 10 MG TABLET PO SCH (08:08)
[2020-02-06] MEDS: PANTOPRAZOLE 40 MG TABLET. PO SCH ×2 (08:08→16:42)
[2020-02-06] MEDS: ASPIRIN ENTERIC COATED 81 MG TABLET.DR. PO SCH (08:08)
--- NOTE | 2020-02-06 12:15 | PN ---
DATE: 02/06/2020 ATTENDING PHYSICIAN: Dr. Miranda. SUBJECTIVE: The patient is doing better. She is alert, up in chair and having a normal conversation. She has no signs of narcosis. OBJECTIVE FINDINGS: VITAL SIGNS: Her blood pressure today is 144/82 mmHg, pulse 76 and regular, temperature 99.2 degrees Fahrenheit, oxygen saturation 97% on 3 liters by nasal cannula. Arterial blood gases done most recently showed a pH of 7.41, pCO2 of 69 mmHg and a pO2 of 82 mmHg. HEENT: Head is without trauma. Pupils are reactive. Sclerae nonicteric. Oropharynx clear. NECK: Supple, no distention of veins at 90 degrees. LUNGS: Good breath sounds with minimal wheezing. CARDIOVASCULAR: Showed regular heart tones are distant. No gallops. ABDOMEN: Obese, protuberant. No organomegaly. Normal bowel sounds. EXTREMITIES: Showed trace edema. NEUROLOGIC: Focally intact. Speech is fluent. 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 ASSESSMENT: 1. A 69-year-old female with acute on chronic hypercarbic respiratory failure, improved. 2. Chronic obstructive pulmonary disease. 3. Morbid obesity. 4. Component of congestive heart failure, aggravated by right heart failure. 5. History of pulmonary embolism, currently anticoagulated. PLAN: 1. We can stop BiPAP as ordered. 2. Oxygen requirements of 2 liters by nasal cannula fixed. 3. Continue antibiotics. 4. Continue nebulizers. 5. Home meds restarted. 6. Discharge planning for later this week. FRANNY KNIGHT MD DR: RAF/ktahy JOB#: [id number] / [id number]
[2020-02-06] MEDS: ACETAMINOPHEN 325 MG TABLET PO PRN (18:12)
[2020-02-06] MEDS: LORazepam 0.5 MG TABLET PO PRN (20:31)
[2020-02-06] MEDS: MONTELUKAST 10 MG TABLET. PO SCH (20:31)
[2020-02-06] MEDS: DULoxetine HCL 60 MG CAPSULE.DR PO SCH (20:31)
[2020-02-06] MEDS: ATORVASTATIN CALCIUM 20 MG TABLET PO SCH (20:31)
[2020-02-06] MEDS: GABAPENTIN 300 MG CAPSULE. PO SCH (20:31)
[2020-02-06] MEDS: AZITHROMYCIN 250 MG TABLET. PO SCH (20:31)
[2020-02-06] MEDS: DOXEPIN HCL 10 MG CAPSULE PO SCH (20:32)
[2020-02-07] MEDS: methylPREDNISolone SOD SUCC PF 40 MG/ML VIAL. IV SCH (05:34)
[2020-02-07 05:40] VITALS: BP 159/90
[2020-02-07 08:00] VITALS: BP 157/89
[2020-02-07] MEDS: APIXABAN 5 MG TABLET. PO SCH ×2 (09:03→20:49)
[2020-02-07] MEDS: ASPIRIN ENTERIC COATED 81 MG TABLET.DR. PO SCH (09:03)
[2020-02-07] MEDS: LACTOBACILLUS RHAMNOSUS GG 1 CAPSULE. PO SCH ×2 (09:03→20:49)
[2020-02-07] MEDS: PANTOPRAZOLE 40 MG TABLET. PO SCH ×2 (09:04→16:33)
[2020-02-07] MEDS: amLODIPine BESYLATE 10 MG TABLET PO SCH (09:04)
[2020-02-07] MEDS: METOPROLOL TART IMMED RELEASE 50 MG TABLET PO SCH ×2 (09:04→20:49)
[2020-02-07] MEDS: FUROSEMIDE 20 MG TABLET PO SCH ×2 (09:05→11:09)
[2020-02-07] MEDS: ALBUTEROL SULFATE 2.5 MG/3 ML NEBU. NEB PRN ×3 (09:19→21:05)
[2020-02-07 10:18] LABS: BLOOD UREA NITROGEN 16 mg/dL (7-20); CALCIUM 8.6 mg/dL (8.5-10.1); CARBON DIOXIDE 45 mmol/L (21-32); CHLORIDE 99 mmol/L (98-107); GFR 66.1; GLUCOSE 170 mg/dL (70-99); POTASSIUM 4.2 mmol/L (3.5-5.1); SODIUM 142 mmol/L (136-145)
[2020-02-07] MEDS: LORazepam 0.5 MG TABLET PO SCH ×2 (11:09→20:50)
--- NOTE | 2020-02-07 11:21 | PN ---
DATE: 02/07/2020 ATTENDING PHYSICIAN: Dr. Miranda. SUBJECTIVE: Doing better. She is inquiring about going home. She is alert. She states that the Ativan has helped calm her down. She denied any cough, congestion, or shortness of breath. OBJECTIVE FINDINGS: VITAL SIGNS: Her blood pressure today is 157/89 mmHg, pulse 78 and regular, temperature 97.6 degrees Fahrenheit, oxygen saturation 97% on 3 liters of nasal cannula. HEENT: Head is without trauma. The pupils are reactive. Sclerae nonicteric. Oropharynx clear. NECK: Supple. LUNGS: Good breath sounds with no wheezing, rales or rhonchi. CARDIOVASCULAR: Showed distant heart tones. No gallops. Peripheral pulses are palpable and full. ABDOMEN: Obese, protuberant. No organomegaly. Bowel sounds are hypoactive. EXTREMITIES: Showed no cyanosis or edema. NEUROLOGIC: Focally intact. Speech is fluent. SKIN: Warm and dry. ASSESSMENT: 1. A 69-year-old female with acute on chronic respiratory failure. 2. Chronic obstructive pulmonary disease. 3. Morbid obesity. 4. Component of congestive heart failure, probably aggravated by right heart failure. 5. History of pulmonary embolism. 6. Pneumonia has been ruled out. PLAN: 1. We stopped the BiPAP. 2. Decrease oxygen supplementation. 3. Stop antibiotics. 4. Stop steroids. 5. Continue nebulizer. 6. Schedule Ativan at a dose of 0.5 mg b.i.d. 7. I feel it is safe for her to stop her Solu-Medrol without any tapering dose as she has not been on it long enough to cause any suppression of the hypothalamus pituitary adrenal axis, HPA axis. 8. Tentative discharge planning for tomorrow morning. FRANNY KNIGHT MD DR: RAF/kathy JOB#: [id number] / [id number]
[2020-02-07 15:00] VITALS: BP 130/73
[2020-02-07] MEDS: ACETAMINOPHEN 325 MG TABLET PO PRN (15:05)
[2020-02-07 19:09] VITALS: BP 148/79
[2020-02-07] MEDS: MONTELUKAST 10 MG TABLET. PO SCH (20:49)
[2020-02-07] MEDS: DOXEPIN HCL 10 MG CAPSULE PO SCH (20:50)
[2020-02-07] MEDS: GABAPENTIN 300 MG CAPSULE. PO SCH (20:50)
[2020-02-07] MEDS: DULoxetine HCL 60 MG CAPSULE.DR PO SCH (20:50)
[2020-02-07] MEDS: ATORVASTATIN CALCIUM 20 MG TABLET PO SCH (20:50)
[2020-02-07 23:59] VITALS: BP 108/61
[2020-02-08 05:20] VITALS: BP 133/87
[2020-02-08 06:52] LABS: CALCIUM 8.5 mg/dL (8.5-10.1); GFR 66.1; POTASSIUM 3.9 mmol/L (3.5-5.1)
[2020-02-08] MEDS: APIXABAN 5 MG TABLET. PO SCH (08:33)
[2020-02-08] MEDS: LACTOBACILLUS RHAMNOSUS GG 1 CAPSULE. PO SCH (08:33)
[2020-02-08] MEDS: ASPIRIN ENTERIC COATED 81 MG TABLET.DR. PO SCH (08:33)
[2020-02-08] MEDS: LORazepam 0.5 MG TABLET PO SCH (08:33)
[2020-02-08] MEDS: PANTOPRAZOLE 40 MG TABLET. PO SCH (08:34)
[2020-02-08] MEDS: FUROSEMIDE 20 MG TABLET PO SCH (08:34)
[2020-02-08] MEDS: amLODIPine BESYLATE 10 MG TABLET PO SCH (08:34)
[2020-02-08 08:35] VITALS: BP 133/87
[2020-02-08] MEDS: METOPROLOL TART IMMED RELEASE 50 MG TABLET PO SCH (08:35)
--- NOTE | 2020-02-08 15:20 | DS ---
DATE OF DISCHARGE: 02/08/2020 ATTENDING PHYSICIAN: Dr. Miranda. FINAL DISCHARGE DIAGNOSES: 1. Acute on chronic respiratory failure. 2. Chronic obstructive pulmonary disease. 3. Hypercarbic respiratory failure. 4. Component of congestive heart failure, probably aggravated by right heart failure. 5. Morbid obesity. 6. History of recent pulmonary embolism and chronic anticoagulation. 7. Pneumonia and coronavirus ruled out. HISTORY OF PRESENT ILLNESS: The patient is a pleasant 69-year-old female with multiple medical issues. She was admitted with hypercarbic respiratory failure. PHYSICAL EXAMINATION: Please see the dictated note. PERTINENT LABORATORY AND X-RAY STUDIES: Arterial blood gases drawn showed significant hypercarbia, but she is maintaining her pH. Initial arterial blood gas showed a pH of 7.30, pCO2 of 84 mmHg, pO2 of 83. With diuresis and further treatment nebulizers, a repeat ABG 2 days later showed a pH of 7.41, pCO2 of 69 mmHg, pO2 of 82 mmHg on 2 liters of supplemental oxygen fixed without titration. Her hemoglobin is maintained at 10.3 g/dL with white count of 5200. Chemistry panel showed normal electrolytes, potassium 3.9 mEq at the time of discharge. Her carbon dioxide is expected to be high to compensate for the buffering of the chronic hypercarbia. Nonfasting blood sugar is 110. Cardiac enzymes are negative for myocardial necrosis. Chest x-ray on admission showed no definite infiltrate. She has vascular congestion. Heart size at the upper limits of normal. COURSE IN THE HOSPITAL: The patient was admitted to the ICU. She had a COVID-19 swab, which was reported as negative. She responded well to diuretics. Empiric antibiotics were given until cultures were negative. We kept her oxygen fixed at 2 liters due to we wanted to have hypoxic drive and to prevent further hypercarbia. She responded well to diuretics. Her diet was advanced and she was back to her baseline. On the sixth hospital day, the patient was alert and talking. Her lungs were clear. She had good breath sounds. Blood pressure was 133/87 mmHg and her temperature was 98.0 degrees Fahrenheit. During this hospitalization, we arranged for an outpatient Trilogy BiPAP apparatus to be delivered to her home. Hopefully, this will be delivered the first part of next week. In the meantime, she responded well to low dose Ativan. Therefore, she is discharged home with a new prescription for Lasix 80 mg p.o. daily, K-Dur 20 mEq, Ativan 0.5 mg b.i.d. She should continue her Toprol-XL 100 mg p.o. daily and her Eliquis 5 mg p.o. b.i.d. I suspect that Sinequan she has been on is causing her to have cholinergic side effects causing dry mouth, which in turn causes to drink excess fluid leading to vascular congestion. For now, I recommend that she stop the Sinequan. She has Cymbalta at home, she needs to continue that. She was discharged then from our hospital in stable condition with explicit instructions and followup care. I suggested a recheck in the office with Dr. Serrano in 10-14 days. The patient was then discharged from our hospital in stable condition with explicit instructions and followup care. Total discharge time is 41 minutes. FRANNY KNIGHT MD DR: RAF/kathy JOB#: [id number] / [id number] NELSON Giordano MD, Kathleen
== END 2020-02-08 10:49 | disposition home or self-care (01) | DRG 189 ==
LOC: ER 12:50 → ICU 14:32 → OBSVTOIN 18:02
PROVIDERS: ADMIT Internal Medicine; ATTEND Internal Medicine
DX: J96.22 Acute and chronic respiratory failure with hypercapnia (principal); I50.33 Acute on chronic diastolic (congestive) heart failure; J44.0 Chronic obstructive pulmonary disease with (acute) lower respiratory infection; J44.1 Chronic obstructive pulmonary disease with (acute) exacerbation; J96.21 Acute and chronic respiratory failure with hypoxia; I16.0 Hypertensive urgency; I11.0 Hypertensive heart disease with heart failure; E66.01 Morbid (severe) obesity due to excess calories; E78.00 Pure hypercholesterolemia, unspecified; E78.5 Hyperlipidemia, unspecified; I50.82 Biventricular heart failure; J20.9 Acute bronchitis, unspecified; M15.9 Polyosteoarthritis, unspecified; Z20.828 Contact with and (suspected) exposure to other viral communicable diseases; Z79.01 Long term (current) use of anticoagulants; Z79.899 Other long term (current) drug therapy; Z82.3 Family history of stroke; Z82.49 Family history of ischemic heart disease and other diseases of the circulatory system; Z86.711 Personal history of pulmonary embolism; F32.9 Major depressive disorder, single episode, unspecified; F41.9 Anxiety disorder, unspecified
CPT/HCPCS: 36415; 36600; 71045; 80048; 80053; 81001; 82803; 83605; 83880; 84484; 85025; 85027; 85610; 87040; 93005; 94660; 96365; 96366; 96375; G0378; G0379; J0456; J0696; J2920; J2930; 97530; 99285-25; J7613; U0003-CS

== ENCOUNTER 2020-02-16 09:05 | Inpatient (IN) | payer OTHER, MEDICAID ==
[~2020-02-16] VITALS: Ht 152.4 cm; Wt 91.9 kg
[~2020-02-16 09:05] MED LIST changes: +POTA10TA5 PO
[2020-02-16] MEDS ORDERED: methylPREDNISolone SOD SUCC PF 125 MG/2 ML VIAL. ONE (09:13)
--- NOTE | 2020-02-16 09:24 | PHYS DOC ---
Past History Past Medical History: Anxiety, COPD, Depression, High Cholesterol, Hypertension Past Surgical History: No Surgical History Smoking: Non-smoker Alcohol Use: None Adult General Chief Complaint Chief Complaint: SHORTNESS OF BREATH HPI HPI Patient is a 69-year-old female who presents for respiratory distress. Onset was this morning when waking up without any inciting event or trauma. Nothing known makes better or worse. Admits inability to take complete breath and deep, tight, sharp chest pain that is substernal and radiates to in between scapular area. Timing of symptoms has been constant since onset. Associated symptoms include generalized chills, dry cough, and nausea. Patient denies any recent travel, fever greater than 100.4, known COVID-19 contacts, abdominal pain, changes in urinary or bladder function, and no noted changes in motor/sensory/neurologic function. Of note, patient recently admitted to our facility February 02 and discharged February 07 for acute on chronic respiratory failure. Patient reports she has been at home ever since discharge without any concerning exposures or contacts. She was unable to get trilogy BiPAP machine as ordered on hospital discharge as insurance declined this. She has been on her usual 3 L supplemental oxygen via nasal cannula at home without any issues until this morning when she had to increase her requirements to 4 L to maintain oxygen saturations greater than 90%. She remains compliant with all medications but admits she has not taken any home medications today due to shortness of breath. Of note, patient with full capacity assessed and CODE STATUS discussed, she confirms she is a full code Review of Systems Review of Systems Fourteen body systems of review of systems have been reviewed. See HPI for pertinent positives and negative responses, other kruger all other systems are negative, non-pertinent or non-contributory Current Medications Current Medications Current Medications Medications (Trade) Dose Ordered Sig/Madhuri Start Time Stop Time Status Last Admin Dose Admin Methylprednisolone Sodium Succinate (SOLU-Medrol 125MG VIAL) 125 mg STK-MED ONCE 02/16/20 09:13 02/16/20 09:13 DC Allergies Allergies Allergies Coded Allergies Type Severity Reaction Last Updated Verified levetiracetam Adverse Reaction Intermediate Hallucinations 02/03/20 Yes Physical Exam Physical Exam Constitutional: Well developed, well nourished, moderate acute distress, moderate respiratory distress with accessory muscle usage, talking in broken sentences. HENT: Normocephalic, atraumatic, bilateral external ears normal, oropharynx moist, no oral exudates, nose normal. Eyes: PERRLA, EOMI, conjunctiva normal, no discharge. Neck: Normal range of motion, no tenderness, supple, no stridor. Cardiovascular: Heart rate tachycardic, sinus rhythm, no murmurs rubs or gallops, chest wall non-painful to palpation Lungs & Thorax: Bilateral breath sounds decreased due to body habitus, coarse breath sounds bilaterally, rhonchi heard in left lower lobe area Abdomen: Bowel sounds normal, soft, no tenderness, no masses, no pulsatile masses. Nonsurgical abdomen, no peritoneal signs Skin: Warm, dry, no erythema, no rash. Back: No tenderness, no CVA tenderness. Extremities: No tenderness, no cyanosis, no clubbing, ROM intact, no edema. Neurologic: Alert and oriented X 3, grossly normal motor & sensory function, no focal deficits noted. Psychologic: Affect normal, judgement normal, anxious mood. Current Patient Data Vital Signs Vital Signs Date Time Temp Pulse Resp B/P (MAP) Pulse Ox O2 Delivery O2 Flow Rate FiO2 02/16/20 09:06 97.5 103 16 115/62 (79) 82 Room Air 3.0 Lab Results Laboratory Tests Test 02/16/20 09:08 02/16/20 09:25 White Blood Count 6.9 x10^3/uL (4.0-11.0) Red Blood Count 3.98 x10^6/uL (3.50-5.40) Hemoglobin 10.5 g/dL (12.0-15.5) Hematocrit 34.5 % (36.0-47.0) Mean Corpuscular Volume 87 fL (79-100) Mean Corpuscular Hemoglobin 26 pg (25-35) Mean Corpuscular Hemoglobin Concent 31 g/dL (31-37) Red Cell Distribution Width 14.9 % (11.5-14.5) Platelet Count 251 x10^3/uL (140-400) Neutrophils (%) (Auto) 76 % (31-73) Lymphocytes (%) (Auto) 13 % (24-48) Monocytes (%) (Auto) 10 % (0-9) Eosinophils (%) (Auto) 1 % (0-3) Basophils (%) (Auto) 0 % (0-3) Neutrophils # (Auto) 5.2 x10^3uL (1.8-7.7) Lymphocytes # (Auto) 0.9 x10^3/uL (1.0-4.8) Monocytes # (Auto) 0.7 x10^3/uL (0.0-1.1) Eosinophils # (Auto) 0.1 x10^3/uL (0.0-0.7) Basophils # (Auto) 0.0 x10^3/uL (0.0-0.2) Sodium Level 135 mmol/L (136-145) Potassium Level 4.1 mmol/L (3.5-5.1) Chloride Level 96 mmol/L (98-107) Carbon Dioxide Level 39 mmol/L (21-32) Anion Gap 0 (6-14) Blood Urea Nitrogen 9 mg/dL (7-20) Creatinine 0.7 mg/dL (0.6-1.0) Estimated GFR (Cockcroft-Gault) 99.8 BUN/Creatinine Ratio 13 (6-20) Glucose Level 99 mg/dL (70-99) Lactic Acid Level 1.1 mmol/L (0.4-2.0) Calcium Level 8.8 mg/dL (8.5-10.1) Magnesium Level 1.9 mg/dL (1.8-2.4) Total Bilirubin 0.3 mg/dL (0.2-1.0) Aspartate Amino Transf (AST/SGOT) 13 U/L (15-37) Alanine Aminotransferase (ALT/SGPT) 22 U/L (14-59) Alkaline Phosphatase 80 U/L (46-116) Creatine Kinase 48 U/L (26-192) Troponin I Quantitative < 0.017 ng/mL (0-0.055) EU-Ivh-X-Type Natriuretic Peptide 75 pg/mL (0-124) Total Protein 7.5 g/dL (6.4-8.2) Albumin 3.4 g/dL (3.4-5.0) Albumin/Globulin Ratio 0.8 (1.0-1.7) Lipase 58 U/L (73-393) Blood Gas pH 7.41 (7.35-7.45) Blood Gas PCO2 65 mmHg (35-45) Blood Gas PO2 20 mmHg (71-100) Blood Gas HCO3 41 mmol/L (22-26) Arterial Bld O2 Saturation (Calc) 31 % (92-99) FiO2 26 % EKG EKG EKG ordered and interpreted by myself at 0926 hrs. as narrow complex tachycardia at 103 bpm, unremarkable intervals, left axis deviation, no obvious fascicular blocks, no acute ischemic findings, no STEMI Radiology/Procedures Radiology/Procedures PROCEDURE: CT ANGIOGRAPHY CHEST Examination: CT angiography chest HISTORY: History of shortness of breath COMPARISON: None available TECHNIQUE: Axial CT angiographic images of chest were performed with IV contrast. Coronal and sagittal 3-D MIP reformats are performed Exposure: One or more of the following individualized dose reduction techniques were utilized for this examination: 1. Automated exposure control 2. Adjustment of the mA and/or kV according to patient size 3. Use of iterative reconstruction technique FINDINGS: The central airways are patent. Mild cardiomegaly. Coronary artery calcifications identified. The caliber of the aorta grossly appears unremarkable. There is no evidence of filling defect identified in the main pulmonary arterial trunk and right and left main pulmonary arteries. Evaluation the distal lobar, segmental branches of the pulmonary arteries is somewhat limited. Mild bibasilar lung airspace opacities likely atelectasis or infiltrates There is mild elevation of the right hemidiaphragm. The visualized liver, spleen, adrenals grossly appears unremarkable Moderate degenerative changes thoracic spine. IMPRESSION: 1. No evidence of central pulmonary embolism. 2. Mild bibasilar lung airspace opacities likely atelectasis or infiltrates. Electronically signed by: Oj Harris MD (02/16/2020 10:22 AM) [id number] Course & Med Decision Making Course & Med Decision Making Patient seen and evaluated by myself on immediate ER arrival Airway patent, patient in obvious respiratory distress with accessory muscle usage, vitals obtained showing tachycardic, hypotensive patient with O2 saturations in the low 80s on 3 L nasal cannula IV access obtained, supplemental O2 started and increased to 4 L, 125 mg IV Solu-Medrol and 162 mg aspirin administered Comprehensive history and physical exam obtained, prior admission notes reviewed , subsequent laboratory and diagnostic studies ordered Despite being on Eliquis, reviewed history of pulmonary embolism and presenting signs and symptoms, joint decision with patient to pursue CT angiogram. This was subsequently negative for any acute pulmonary embolism Patiently constant monitored throughout entirety of the ER stay, respiratory distress improved with interventions above and patient stabilized Discussed most likely diagnosis of acute on chronic respiratory failure, likely related to hypoventilation versus other etiologies such as infection Nonetheless, patient still at high risk for respiratory decline if discharged home. I discussed this with patient and need for further inpatient medical management, patient agreeable On-call hospitalist, Dr. Miranda, contacted and case discussed. He agreed to admit her under his care at [facility] All of patient's questions and concerns addressed prior to transport to [facility] in stable condition Critical Care Time This patient required critical care. Due to the fact that the patient required a significant amount of one on one physician - patient contact time, ordering and review of studies, arranging urgent treatment with development of a management plan, evaluation of patients response to treatment with frequent reassessments, and discussions with other providers this patient required critical care time in excess of 30 minutes. Critical care time was indicated due to the inherent instability and/or potential for instability in this patient. The critical care time that is allocated to this patient is above and beyond any time spent on any other billable procedures performed on this patient. Dragon Disclaimer Dragon Disclaimer This electronic medical record was generated, in whole or in part, using a voice recognition dictation system. The HEART Score for CP Pts HEART Score for Chest Pain: HEART Score for Chest Pain Response (Comments) Value History Moderately Suspicious 1 ECG Normal 0 Age > 65 2 Risk Factors >3 Risk Factors or Hx CAD 2 Troponin < Normal Limit 0 Total 5 Risk Factors: Risk Factors: DM, Current or recent (<one month) smoker, HTN, HLP, family history of CAD, obesity. Risk Scores: Score 0 - 3: 2.5% MACE over next 6 weeks - Discharge Home Score 4 - 6: 20.3% MACE over next 6 weeks - Admit for Clinical Observation Score 7 - 10: 72.7% MACE over next 6 weeks - Early Invasive Strategies Departure Departure: Impression: Primary Impression: Acute on chronic respiratory failure with hypoxia and hypercapnia Disposition: ADMITTED INPATIENT ([facility]) Admitting Physician: Nina Miranda Condition: STABLE Referrals: JAJA TRUONG MD (PCP) Justification of Admission: Justification of Admission: Justification of Admission Dx: Yes Respiratory Failure: Severe Resp Distress Acute COPD Exacerbation: Acute COPD Exacerbation RONEL BEARDEN DO Feb 16, 2020 09:24
[2020-02-16] MEDS ORDERED: IOHEXOL 350 MG/ML 100 ML VIAL. IV ONE (09:30)
[2020-02-16 09:31] LABS: BASO % 0 % (0-3); EOS # 0.1 x10^3/uL (0.0-0.7); EOS % 1 % (0-3); HEMATOCRIT 34.5 % (36.0-47.0); HEMOGLOBIN 10.5 g/dL (12.0-15.5); LYMPH # 0.9 x10^3/uL (1.0-4.8); LYMPH % 13 % (24-48); MEAN CORPUSCULAR HEMOGLOBIN 26 pg (25-35); MEAN CORPUSCULAR HGB CONC 31 g/dL (31-37); MEAN CORPUSCULAR VOLUME 87 fL (79-100); MONO # 0.7 x10^3/uL (0.0-1.1); MONO % 10 % (0-9); NEUT # 5.2 x10^3uL (1.8-7.7); NEUT % 76 % (31-73); PLATELET COUNT 251 x10^3/uL (140-400); RED BLOOD COUNT 3.98 x10^6/uL (3.50-5.40); RED CELL DISTRIBUTION WIDTH 14.9 % (11.5-14.5); WHITE BLOOD COUNT 6.9 x10^3/uL (4.0-11.0)
[2020-02-16] MEDS ORDERED: CONTRAST GIVEN. MC PRN (09:45)
[2020-02-16 09:53] LABS: BGAS PH 7.41 (7.35-7.45)
[2020-02-16 09:56] LABS: CALCIUM 8.8 mg/dL (8.5-10.1); CREATININE 0.7 mg/dL (0.6-1.0); GFR 99.8; POTASSIUM 4.1 mmol/L (3.5-5.1)
[2020-02-16 10:00] LABS: ALBUMIN 3.4 g/dL (3.4-5.0); ALBUMIN/GLOBULIN RATIO 0.8 (1.0-1.7); MAGNESIUM 1.9 mg/dL (1.8-2.4); TOTAL BILIRUBIN 0.3 mg/dL (0.2-1.0); TOTAL PROTEIN 7.5 g/dL (6.4-8.2)
--- NOTE | 2020-02-16 10:25 | RAD ---
Examination: CT angiography chest HISTORY: History of shortness of breath COMPARISON: None available TECHNIQUE: Axial CT angiographic images of chest were performed with IV contrast. Coronal and sagittal 3-D MIP reformats are performed Exposure: One or more of the following individualized dose reduction techniques were utilized for this examination: 1. Automated exposure control 2. Adjustment of the mA and/or kV according to patient size 3. Use of iterative reconstruction technique FINDINGS: The central airways are patent. Mild cardiomegaly. Coronary artery calcifications identified. The caliber of the aorta grossly appears unremarkable. There is no evidence of filling defect identified in the main pulmonary arterial trunk and right and left main pulmonary arteries. Evaluation the distal lobar, segmental branches of the pulmonary arteries is somewhat limited. Mild bibasilar lung airspace opacities likely atelectasis or infiltrates There is mild elevation of the right hemidiaphragm. The visualized liver, spleen, adrenals grossly appears unremarkable Moderate degenerative changes thoracic spine. IMPRESSION: 1. No evidence of central pulmonary embolism. 2. Mild bibasilar lung airspace opacities likely atelectasis or infiltrates. Electronically signed by: Oj Harris MD (02/16/2020 10:22 AM) [id number]
--- NOTE | 2020-02-16 10:26 | RAD ---
EXAM: CHEST 1 VIEW History: Shortness of breath COMPARISON: 02/02/2020 TECHNIQUE: Single portable radiograph of the chest FINDINGS: The cardiac silhouette is unremarkable. Mild bibasilar lung airspace opacities. The costophrenic sulci are clear and well demarcated. IMPRESSION: Mild bibasilar lung airspace opacities likely atelectasis or infiltrates. Follow-up to resolution. Electronically signed by: Oj Harris MD (02/16/2020 10:23 AM) [id number]
[2020-02-16 10:32] LABS: BILIRUBIN,URINE NEG (NEG); CLARITY,URINE CLEAR; COLOR,URINE YELLOW; GLUCOSE,URINE NEG (NEG); NITRITE,URINE NEG (NEG); UROBILINOGEN,URINE 0.2 mg/dL (0.2 mg/dL)
[2020-02-16 10:33] LABS: BACTERIA,URINE 0 /HPF (0-FEW); RBC,URINE 0 /HPF (0-2); SQUAMOUS EPITHELIAL CELL,UR MOD /LPF; WBC,URINE OCC /HPF (0-4)
[2020-02-16] MEDS ORDERED: LORazepam 1 MG TABLET PO ONE (11:00)
[2020-02-16 12:15] VITALS: BP 128/61
--- NOTE | 2020-02-16 12:52 | EKG ---
[facility] ED [facility] [place] [id number] Test Date: 2020-02-16 Test Time: 09:13:42 Pat Name: ALIREZA PETERSON Department: Room: [facility] A Gender: F Parts Classifier: : [id number] Requested By: RONEL BEARDEN Order Number: [id number] Reading MD: Measurements Intervals [place] Rate: 103 P: 44 [place]: 126 QRS: -12 QRSD: 72 T: 26 QT: 306 QTc: 403 Interpretive Statements SINUS TACHYCARDIA LEFT ATRIAL ABNORMALITY LEFTWARD AXIS ABNORMAL ECG RI6.02 No previous ECG available for comparison
--- NOTE | 2020-02-16 15:24 | HP ---
ADMIT DATE: 02/16/2020 HISTORY OF PRESENT ILLNESS: The patient is a 69-year-old -[place] female patient who was brought to the Emergency Room with complaint of worsening shortness of breath. According to her, she started having worsening of breath since last Monday and has progressively worsened. She is unable now to lie flat. She is extremely short of breath with minimal exertion. She has also had cough, which is mostly dry and has complained of chest tightness, has had no fever and denied any COVID-19 contact. She was evaluated in the Emergency Room. Her EKG showed that she was in sinus tachycardia with a heart rate of 103 beats per minute with unremarkable intervals, left axis deviation, no obvious fascicular blocks and no acute ischemic changes or ST segment elevation. She has had a CT angiography of the chest, which basically showed the central airways are patent, mild cardiomegaly, coronary artery calcification identified. It showed that she has no evidence of pulmonary emboli. She has mild bibasilar lung airspace opacities, likely atelectasis or infiltrate. The patient was basically admitted with [id number] hypoxic hypercapnic respiratory failure. Of note, she was discharged recently from this facility on 02/08/2020 after she was admitted for similar complaint and she was supposed to have a Trilogy machine; however, the insurance declined that. She is usually on 3 liters of supplemental oxygen by nasal cannula without any problem up until this morning. PAST MEDICAL HISTORY: Significant for asthmatic bronchitis versus COPD. She has chronic hypoxic hypercapnic respiratory failure, hyperlipidemia, hypertension, generalized osteoarthritis, history of pulmonary embolism with questionable interstitial lung disease. 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 PAST SURGICAL HISTORY: Significant for left wrist fracture. She is status post open reduction and internal fixation. She also has a , esophagogastroduodenoscopy and colonoscopy. ALLERGIES: SHE IS ALLERGIC TO KEPPRA THAT WAS GIVEN TO HER BY MISTAKE, BUT SHE HAS NO KNOWN OTHER DRUG ALLERGIES. MEDICATIONS: She was actually discharged home to continue on following medications: She was discharged on Lasix 80 mg p.o. daily, K-Dur 20 mEq once a day, Ativan 0.5 mg twice a day, Toprol-XL 100 mg daily, Eliquis 5 mg twice a day. She is on Cymbalta. FAMILY HISTORY: She has 6 brothers, 4 because of myocardial infarction, CVA. She has 2 brothers who are still alive. She has 4 sisters, 2 of them in childhood and one of heart failure and her father at the age of 76 because of myocardial infarction. Mother at age of 71 because of myocardial infarction. SOCIAL HISTORY: She is in the process of her . She has one son. She never smoked, never drank alcohol or used any recreational drugs. 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 She has also been a [employer]. REVIEW OF SYSTEMS: The patient denied any blurring of vision. She does have bilateral cataracts that have not been operated on. Denied any glaucoma or macular degeneration. Denied any earache, tinnitus or sensorineural deafness. Denied any nosebleeds, stuffy nose or postnasal drip. Denied any sore throat, sore tongue, toothache, hoarseness of voice or difficulty swallowing. Denied any nausea, vomiting, diarrhea or constipation. Denied any hematemesis, melena, or hematochezia. Denied any dysuria, frequency or hematuria. Did complain of chest discomfort, cough and shortness of breath. Did complain of orthopnea or paroxysmal nocturnal dyspnea. PHYSICAL EXAMINATION: GENERAL: On arrival to the Emergency Room, the patient was slightly tachypneic, pale, but no jaundice, cyanosis, lymphadenopathy or thyromegaly. No jugular venous distention, but mild bilateral lower limb edema. VITAL SIGNS: Her heart rate was 103, blood pressure was 115/62, temperature was 97.5, respiratory rate was 16, and oxygen saturation was 82% on 3 liters of oxygen. HEAD, EYES, EARS, NOSE AND THROAT: Showed normocephalic, atraumatic. NECK: Supple. HEART: Showed normal first and second heart sounds. No gallop or murmur. CHEST: Shows central trachea, equal bilateral expansion, air entry, vesicular sounds with bilateral basal crepitation, more so on the right than left. I could not really appreciate any rhonchi. ABDOMEN: Distended, soft, nontender. NEUROLOGICALLY: She is awake, alert, responding appropriately. All her cranial nerves are intact. EXTREMITIES: She moves extremities without difficulty. LABORATORY DATA: Her lab work on arrival showed a white cell count of 6900, hemoglobin 10, hematocrit 34, MCV 87 and platelet count 251,000. Her chemistry showed a serum sodium of 135, potassium 4.1, chloride 96, bicarbonate 39, anion gap of 0, BUN 9, creatinine 0.7, estimated GFR was 99 mL per minute. Her glucose was 99, lactic acid was 1.1, calcium was 8.8, magnesium was 1.9. Total bilirubin, AST, ALT, alkaline phosphatase were normal. His CK was 48. Beta natriuretic peptide was 75 and total protein was 7.5, albumin was 3.4. Urinalysis showed the urine was yellow, clear with a pH of 8.5, specific gravity of 1.010. The urine was negative for protein, glucose, ketones, blood, nitrite and bilirubin, negative for leukocyte esterase. There are no rbc's, occasional wbc's, and no bacteria. Her blood gases showed a pH of 7.41, pCO2 of 65, pO2 of 20, bicarbonate 41 and oxygen saturation was 31% on FiO2 of 26%. Her chest x-ray showed the cardiac silhouette is unremarkable, mild bibasilar lung airspace opacities. The costophrenic sulci are clear and well demarcated. There are mild bibasilar lung airspace opacities, likely atelectasis or infiltrate followup resolution, CT angio of the chest with contrast showed central airways are patent, mild cardiomegaly, coronary artery calcification identified. The caliber of the aorta grossly appears unremarkable. There is no evidence of filling defects identified in the main pulmonary arterial trunk and right and left main pulmonary arteries. Evaluation of distal lobar segmental branches of pulmonary arteries is somewhat limited. She has mild bibasilar lung airspace opacities, likely atelectasis or infiltrate. There is mild elevation of the right hemidiaphragm. The visualized liver, spleen, adrenals grossly appears unremarkable, moderate degenerative changes throughout the thoracic spine. ASSESSMENT AND PLAN: In summary, this is a 69-year-old -[place] female patient who came in with worsening shortness of breath, chest tightness, orthopnea, paroxysmal nocturnal dyspnea. Cough is mostly dry. Her chest x-ray showed that she has mild bilateral bibasilar infiltrate. Her BNP was only 75. My plan is to reconcile all her medication and continue with the steroids and bronchodilator and I would probably start also antibiotic in the form of Rocephin and Zithromax for possible healthcare-associated pneumonia with community-acquired pneumonia, although she was here only about less than a week ago. I am not really sure that this represents congestive heart failure. She has crackles in both lungs, more so in the right than left with exposure to a lot of birds, some interstitial lung disease might be contributing to her presentation also. NELSON HALLMAN MD DR: TYLER/kathy JOB#: [id number] / [id number]
[2020-02-16 15:56] VITALS: BP 147/68
[2020-02-16] MEDS ORDERED: METO100T7 PO (16:47)
[2020-02-16] MEDS ORDERED: LORA0.5T21 PO (16:49)
[2020-02-16] MEDS ORDERED: APIX5TAB3 PO (16:49)
[2020-02-16] MEDS ORDERED: FURO80TA72 PO (16:50)
[2020-02-16] MEDS ORDERED: IV NORMAL SALINE 1,000ML 1,000 ML IV ONE (17:15)
[2020-02-16] MEDS: ACETAMINOPHEN 325 MG TABLET PO PRN (18:34)
[2020-02-16 19:45] VITALS: BP 133/74
[2020-02-16] MEDS: APIXABAN 5 MG TABLET. PO SCH (20:13)
[2020-02-16] MEDS: METOPROLOL TART IMMED RELEASE 50 MG TABLET PO SCH (20:14)
[2020-02-16] MEDS: LORazepam 0.5 MG TABLET PO SCH (20:14)
[2020-02-16] MEDS: MONTELUKAST 10 MG TABLET. PO SCH (20:14)
[2020-02-16] MEDS: methylPREDNISolone SOD SUCC PF 40 MG/ML VIAL. IV SCH (20:15)
[2020-02-16] MEDS ORDERED: APIXABAN 5 MG TABLET. PO SCH (21:00)
[2020-02-16 23:11] VITALS: BP 134/75
[2020-02-17] VITALS (9 sets, daily range): BP systolic 138–184; BP diastolic 69–83
[2020-02-17] MEDS: ACETAMINOPHEN 325 MG TABLET PO PRN (01:53)
[2020-02-17 06:35] LABS: HEMATOCRIT 32.8 % (36.0-47.0); RED BLOOD COUNT 3.75 x10^6/uL (3.50-5.40); RED CELL DISTRIBUTION WIDTH 14.6 % (11.5-14.5); WHITE BLOOD COUNT 5.3 x10^3/uL (4.0-11.0)
[2020-02-17 07:03] LABS: CALCIUM 8.5 mg/dL (8.5-10.1); CREATININE 0.7 mg/dL (0.6-1.0); GFR 99.8; POTASSIUM 4.7 mmol/L (3.5-5.1)
[2020-02-17] MEDS: APIXABAN 5 MG TABLET. PO SCH (07:41)
[2020-02-17] MEDS: methylPREDNISolone SOD SUCC PF 40 MG/ML VIAL. IV SCH ×2 (07:50→20:10)
[2020-02-17] MEDS: METOPROLOL TART IMMED RELEASE 50 MG TABLET PO SCH ×2 (07:50→20:10)
[2020-02-17] MEDS: LORazepam 0.5 MG TABLET PO SCH ×2 (07:50→20:10)
--- NOTE | 2020-02-17 08:19 | PDOC2 ---
CARDIAC CONSULT DATE OF CONSULT DOS: DATE: 02/17/20 TIME: 08:11 REASON FOR CONSULT Reason for Consult CHF REFERRING PHYSICIAN Referring Physician Dr. Miranda SOURCE Source: Chart review, Patient HPI History of Present Illness This is a 69 yo female who presented secondary to shortness of breath. Patient reports she has been more short of breath since late last week. Has progressively worsened. Report central chest tightness upon taking a deep breathing. No diaphoresis, palpitations, or nausea/vomiting. Was hospitalized recently for similar complaints. No recent fevers or illness. Reports compliance with meds. She was supposed to get Trilogy machine upon discharge, but unfortunately insurance would not cover this. PAST MEDICAL HISTORY Cardiovascular: CHF, HTN, hyperipidemia Pulmonary: COPD, Pulmonary embolus CENTRAL NERVOUS SYSTEM: Periperal neuropathy GI: GERD Heme/Onc: Anemia NOS Psych: Depression Musculoskeletal: Osteoarthritis PAST SURGICAL HISTORY Past Surgical History: Hysterectomy FAMILY HISTORY Family History: Heart Disease, Hypertension, Other (TIA, dementia ) SOCIAL HISTORY Smoke: No ALCOHOL: none Drugs: None Lives: with Family CURRENT MEDICATIONS Current Medications Current Medications Methylprednisolone Sodium Succinate (SOLU-Medrol 125MG VIAL) 125 mg STK-MED ONCE .ROUTE ; Start 02/16/20 at 09:13; Stop 02/16/20 at 09:13; Status DC Iohexol (Omnipaque 350 Mg/ml) 100 ml 1X ONCE IV Last administered on 02/16/20at 09:47; Start 02/16/20 at 09:30; Stop 02/16/20 at 09:32; Status DC Info (Do NOT chart on this entry -- for MONITORING) 1 each PRN DAILY PRN MC SEE COMMENTS; Start 02/16/20 at 09:45; Stop 02/18/20 at 09:44 Acetaminophen (Tylenol) 650 mg PRN Q4HRS PRN PO FEVER > 100.3'F Last administered on 02/17/20at 01:53; Start 02/16/20 at 10:45; Stop 02/17/20 at 10:44 Apixaban (Eliquis) 5 mg BID PO Last administered on 02/16/20at 20:13; Start 02/16/20 at 21:00 Lorazepam (Ativan) 0.5 mg 1X ONCE PO Last administered on 02/16/20at 11:23; Start 02/16/20 at 11:00; Stop 02/16/20 at 11:01; Status DC Methylprednisolone Sodium Succinate (SOLU-Medrol 40MG VIAL) 40 mg Q12HR IV Last administered on 02/17/20at 07:50; Start 02/16/20 at 21:00 Montelukast Sodium (Singulair) 10 mg QHS PO Last administered on 02/16/20at 20 :14; Start 02/16/20 at 21:00 Apixaban (Eliquis) 5 mg BID PO ; Start 02/16/20 at 21:00; Status UNV Lorazepam (Ativan) 0.5 mg BID PO Last administered on 02/17/20at 07:50; Start 02/16/20 at 21:00 Metoprolol Tartrate (Lopressor) 100 mg BID PO Last administered on 02/17/20at 07:50; Start 02/16/20 at 21:00 Sodium Chloride 1,000 ml @ 1,000 mls/hr 1X ONCE IV Last administered on at 17:15; Start 02/16/20 at 17:15; Stop 02/16/20 at 18:14; Status DC Active Scripts Active Reported Lasix (Furosemide) 80 Mg Tablet 1 Tab PO DAILY 30 Days Ativan (Lorazepam) 0.5 Mg Tablet 0.5 Mg PO BID Eliquis (Apixaban) 5 Mg Tablet 5 Mg PO BID Metoprolol Tartrate 100 Mg Tablet 1 Tab PO BID Klor-Con 10 (Potassium Chloride) 10 Meq Tablet.er 1 Tab PO DAILY 30 Days ALLERGIES Allergies: Coded Allergies: levetiracetam (Verified Adverse Reaction, Intermediate, Hallucinations, 02/03/20) ROS Review of Systems 14 point ROS conducted with pertinent positives noted above in HPI PHYSICAL EXAM General: Alert, Oriented X3, Cooperative, No acute distress HEENT: Atraumatic, Mucous membr. moist/pink Lungs: Other Heart: Regular rate Abdomen: Soft, No tenderness Extremities: No edema, Normal pulses Skin: No rashes, No breakdown Neuro: Normal speech, Sensation intact, Cranial nerves 3-12 NL Psych/Mental Status: Mental status NL, Mood NL MUSCULOSKELETAL: Osteoarthritic changes both hands VITALS Vital Signs Vital Signs Date Time Temp Pulse Resp B/P (MAP) Pulse Ox O2 Delivery O2 Flow Rate FiO2 02/17/20 07:50 81 156/72 02/17/20 06:32 98.0 28 95 Nasal Cannula 3.0 LABS LABS Laboratory Tests Test 02/16/20 09:08 02/16/20 09:25 02/16/20 10:09 02/17/20 05:45 White Blood Count 6.9 x10^3/uL (4.0-11.0) 5.3 x10^3/uL (4.0-11.0) Red Blood Count 3.98 x10^6/uL (3.50-5.40) 3.75 x10^6/uL (3.50-5.40) Hemoglobin 10.5 g/dL (12.0-15.5) 10.0 g/dL (12.0-15.5) Hematocrit 34.5 % (36.0-47.0) 32.8 % (36.0-47.0) Mean Corpuscular Volume 87 fL (79-100) 87 fL (79-100) Mean Corpuscular Hemoglobin 26 pg (25-35) 27 pg (25-35) Mean Corpuscular Hemoglobin Concent 31 g/dL (31-37) 31 g/dL (31-37) Red Cell Distribution Width 14.9 % (11.5-14.5) 14.6 % (11.5-14.5) Platelet Count 251 x10^3/uL (140-400) 238 x10^3/uL (140-400) Neutrophils (%) (Auto) 76 % (31-73) Lymphocytes (%) (Auto) 13 % (24-48) Monocytes (%) (Auto) 10 % (0-9) Eosinophils (%) (Auto) 1 % (0-3) Basophils (%) (Auto) 0 % (0-3) Neutrophils # (Auto) 5.2 x10^3uL (1.8-7.7) Lymphocytes # (Auto) 0.9 x10^3/uL (1.0-4.8) Monocytes # (Auto) 0.7 x10^3/uL (0.0-1.1) Eosinophils # (Auto) 0.1 x10^3/uL (0.0-0.7) Basophils # (Auto) 0.0 x10^3/uL (0.0-0.2) Sodium Level 135 mmol/L (136-145) 138 mmol/L (136-145) Potassium Level 4.1 mmol/L (3.5-5.1) 4.7 mmol/L (3.5-5.1) Chloride Level 96 mmol/L (98-107) 98 mmol/L (98-107) Carbon Dioxide Level 39 mmol/L (21-32) 38 mmol/L (21-32) Anion Gap 0 (6-14) 2 (6-14) Blood Urea Nitrogen 9 mg/dL (7-20) 9 mg/dL (7-20) Creatinine 0.7 mg/dL (0.6-1.0) 0.7 mg/dL (0.6-1.0) Estimated GFR (Cockcroft-Gault) 99.8 99.8 BUN/Creatinine Ratio 13 (6-20) Glucose Level 99 mg/dL (70-99) 142 mg/dL (70-99) Lactic Acid Level 1.1 mmol/L (0.4-2.0) Calcium Level 8.8 mg/dL (8.5-10.1) 8.5 mg/dL (8.5-10.1) Magnesium Level 1.9 mg/dL (1.8-2.4) Total Bilirubin 0.3 mg/dL (0.2-1.0) Aspartate Amino Transf (AST/SGOT) 13 U/L (15-37) Alanine Aminotransferase (ALT/SGPT) 22 U/L (14-59) Alkaline Phosphatase 80 U/L (46-116) Creatine Kinase 48 U/L (26-192) Troponin I Quantitative < 0.017 ng/mL (0-0.055) CV-Nad-G-Type Natriuretic Peptide 75 pg/mL (0-124) 113 pg/mL (0-124) Total Protein 7.5 g/dL (6.4-8.2) Albumin 3.4 g/dL (3.4-5.0) Albumin/Globulin Ratio 0.8 (1.0-1.7) Lipase 58 U/L (73-393) Blood Gas pH 7.41 (7.35-7.45) Blood Gas PCO2 65 mmHg (35-45) Blood Gas PO2 20 mmHg (71-100) Blood Gas HCO3 41 mmol/L (22-26) Arterial Bld O2 Saturation (Calc) 31 % (92-99) FiO2 26 % Urine Collection Type Unknown Urine Color Yellow Urine Clarity Clear Urine pH 8.5 Urine Specific [place] 1.010 Urine Protein Neg (NEG-TRACE) Urine Glucose (UA) Neg mg/dL (NEG) Urine Ketones (Stick) Neg mg/dL (NEG) Urine Blood Neg (NEG) Urine Nitrite Neg (NEG) Urine Bilirubin Neg (NEG) Urine Urobilinogen Dipstick 0.2 mg/dL (0.2 mg/dL) Urine Leukocyte Esterase Neg (NEG) Urine RBC 0 /HPF (0-2) Urine WBC Occ /HPF (0-4) Urine Squamous Epithelial Cells Mod /LPF Urine Bacteria 0 /HPF (0-FEW) ASSESSMENT/PLAN Assessment/Plan 1. Acute on chronic respiratory failure with AE COPD. ? ILD 2. Chest pain, atypical. Initial trop negative 3. Chronic probable diastolic CHF; NT Pro BNP WNL, doubt overt HF 4. Hypertension; controlled 5. Hyperlipidemia 6. GERD 7. H/o PE on Eliquis 8. Obesity, ? pulm HTN Recommendations Echo to assess LV systolic function, PAP; this can be done as an outpatient. Lasix PRN Lipids, TSH Lung optimization Consider outpatient ischemic evaluation ALISHA MURRAY APRN Feb 17, 2020 08:19
[2020-02-17 09:20] LABS: BGAS PH 7.37 (7.35-7.45)
--- NOTE | 2020-02-17 16:53 | PN ---
DATE: 02/17/2020 SUBJECTIVE: The patient is sitting on the edge of the bed, continued to be tachypneic, requiring 3 liters of oxygen to maintain her oxygen saturation above 90. She was also confused and actually fell last night, although there is no documented injury. She continued to retain carbon dioxide and we will start her on BiPAP machine tonight. PHYSICAL EXAMINATION: GENERAL: When I examined her, she looked pale, but no jaundice, cyanosis or thyromegaly. No jugular venous distention. No limb edema. VITAL SIGNS: Her heart rate was 81, blood pressure was 184/83, temperature was 98.2, respiratory rate was 20, and oxygen saturation was 91% on 3 liters of oxygen. HEAD, EYES, EARS, NOSE AND THROAT: Showed normocephalic, atraumatic. NECK: Supple. HEART: Normal first and second heart sounds. No gallop or murmur. CHEST: Shows central trachea, equally reduced expansion, reduced air entry, vesicular breath sounds, bilateral scattered rhonchi and basal crepitation both sides posteriorly. ABDOMEN: Distended, soft, nontender. No guarding or rigidity. No organomegaly. All hernial orifices intact. Bowel sounds normal. NEUROLOGIC: She was somewhat confused, but without any obvious lateralizing sign. All her cranial nerves intact. She moves extremities without difficulty. Her intake and output were incompletely recorded. LABORATORY DATA: Showed a white cell count of 5300, hemoglobin 10, hematocrit 33, MCV 87, and platelet count of 238,000. Her serum sodium was 138, potassium 4.7, chloride 98, bicarbonate 38, anion gap of 2, BUN 9, creatinine 0.7, estimated GFR was 99 mL per minute. Her glucose 142, calcium was 8.5. Beta natriuretic peptide was 113. Her repeat blood gases showed a pH of 7.37, a pCO2 of 73, a pO2 of 73; bicarbonate 43 and oxygen saturation was 93% on FiO2 of 32%. Her urinalysis was essentially unremarkable. Her blood cultures showed no growth after 1 day. ASSESSMENT: 1. Acute on chronic hypoxic hypercapnic respiratory failure. 2. Chronic obstructive pulmonary disease exacerbation. 3. Pulmonary emboli for which she is on Eliquis. 4. 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 OTHER PROBLEMS: Include hyperlipidemia, hypertension, generalized osteoarthritis. PLAN: To continue with all her current medication. We will also put her on BiPAP machine and decide on further management accordingly. She was seen by the telex operator and again I am not really sure that she has any evidence of congestive heart failure. We will arrange so that either it can be done today; otherwise, it can be done as an outpatient. NELSON HALLMAN MD DR: TYLER/kathy JOB#: [id number] / [id number]
[2020-02-17] MEDS: MONTELUKAST 10 MG TABLET. PO SCH (20:10)
[2020-02-17] MEDS: ATORVASTATIN CALCIUM 20 MG TABLET PO SCH (22:40)
[2020-02-18] VITALS (24 sets, daily range): BP systolic 115–168; BP diastolic 57–97
[2020-02-18 05:40] LABS: BGAS PH 7.37 (7.35-7.45)
--- NOTE | 2020-02-18 08:15 | PDOC ---
CARDIO Progress Notes Date & Time Date of Service DATE: 02/18/20 TIME: 08:10 Time of Evaluation 08:10 Subjective Notes Cough persistent. Reports this has been chronic for 5 years. No chest pain, palpitations. Vitals Vitals Vital Signs Date Time Temp Pulse Resp B/P (MAP) Pulse Ox O2 Delivery O2 Flow Rate FiO2 02/18/20 06:00 90 20 148/97 (114) 95 Nasal Cannula 3.0 02/18/20 04:00 98.2 Weight Weight [ ] Input and Output I.O. Intake and Output 02/18/20 07:00 Intake Total 960 ml Balance 960 ml Intake Oral 960 ml # Voids 5 # Bowel Movements 3 Laboratory Labs Laboratory Tests Test 02/16/20 09:08 02/16/20 09:25 02/16/20 10:09 02/17/20 05:45 White Blood Count 6.9 x10^3/uL (4.0-11.0) 5.3 x10^3/uL (4.0-11.0) Red Blood Count 3.98 x10^6/uL (3.50-5.40) 3.75 x10^6/uL (3.50-5.40) Hemoglobin 10.5 g/dL (12.0-15.5) 10.0 g/dL (12.0-15.5) Hematocrit 34.5 % (36.0-47.0) 32.8 % (36.0-47.0) Mean Corpuscular Volume 87 fL (79-100) 87 fL (79-100) Mean Corpuscular Hemoglobin 26 pg (25-35) 27 pg (25-35) Mean Corpuscular Hemoglobin Concent 31 g/dL (31-37) 31 g/dL (31-37) Red Cell Distribution Width 14.9 % (11.5-14.5) 14.6 % (11.5-14.5) Platelet Count 251 x10^3/uL (140-400) 238 x10^3/uL (140-400) Neutrophils (%) (Auto) 76 % (31-73) Lymphocytes (%) (Auto) 13 % (24-48) Monocytes (%) (Auto) 10 % (0-9) Eosinophils (%) (Auto) 1 % (0-3) Basophils (%) (Auto) 0 % (0-3) Neutrophils # (Auto) 5.2 x10^3uL (1.8-7.7) Lymphocytes # (Auto) 0.9 x10^3/uL (1.0-4.8) Monocytes # (Auto) 0.7 x10^3/uL (0.0-1.1) Eosinophils # (Auto) 0.1 x10^3/uL (0.0-0.7) Basophils # (Auto) 0.0 x10^3/uL (0.0-0.2) Sodium Level 135 mmol/L (136-145) 138 mmol/L (136-145) Potassium Level 4.1 mmol/L (3.5-5.1) 4.7 mmol/L (3.5-5.1) Chloride Level 96 mmol/L (98-107) 98 mmol/L (98-107) Carbon Dioxide Level 39 mmol/L (21-32) 38 mmol/L (21-32) Anion Gap 0 (6-14) 2 (6-14) Blood Urea Nitrogen 9 mg/dL (7-20) 9 mg/dL (7-20) Creatinine 0.7 mg/dL (0.6-1.0) 0.7 mg/dL (0.6-1.0) Estimated GFR (Cockcroft-Gault) 99.8 99.8 BUN/Creatinine Ratio 13 (6-20) Glucose Level 99 mg/dL (70-99) 142 mg/dL (70-99) Lactic Acid Level 1.1 mmol/L (0.4-2.0) Calcium Level 8.8 mg/dL (8.5-10.1) 8.5 mg/dL (8.5-10.1) Magnesium Level 1.9 mg/dL (1.8-2.4) Total Bilirubin 0.3 mg/dL (0.2-1.0) Aspartate Amino Transf (AST/SGOT) 13 U/L (15-37) Alanine Aminotransferase (ALT/SGPT) 22 U/L (14-59) Alkaline Phosphatase 80 U/L (46-116) Creatine Kinase 48 U/L (26-192) Troponin I Quantitative < 0.017 ng/mL (0-0.055) EP-Tad-U-Type Natriuretic Peptide 75 pg/mL (0-124) 113 pg/mL (0-124) Total Protein 7.5 g/dL (6.4-8.2) Albumin 3.4 g/dL (3.4-5.0) Albumin/Globulin Ratio 0.8 (1.0-1.7) Lipase 58 U/L (73-393) Blood Gas pH 7.41 (7.35-7.45) Blood Gas PCO2 65 mmHg (35-45) Blood Gas PO2 20 mmHg (71-100) Blood Gas HCO3 41 mmol/L (22-26) Arterial Bld O2 Saturation (Calc) 31 % (92-99) FiO2 26 % Urine Collection Type Unknown Urine Color Yellow Urine Clarity Clear Urine pH 8.5 Urine Specific [place] 1.010 Urine Protein Neg (NEG-TRACE) Urine Glucose (UA) Neg mg/dL (NEG) Urine Ketones (Stick) Neg mg/dL (NEG) Urine Blood Neg (NEG) Urine Nitrite Neg (NEG) Urine Bilirubin Neg (NEG) Urine Urobilinogen Dipstick 0.2 mg/dL (0.2 mg/dL) Urine Leukocyte Esterase Neg (NEG) Urine RBC 0 /HPF (0-2) Urine WBC Occ /HPF (0-4) Urine Squamous Epithelial Cells Mod /LPF Urine Bacteria 0 /HPF (0-FEW) Triglycerides Level 41 mg/dL (0-150) Cholesterol Level 209 mg/dL (0-200) LDL Cholesterol, Calculated 136 mg/dL (0-100) VLDL Cholesterol, Calculated 8 mg/dL (0-40) Non-HDL Cholesterol Calculated 144 mg/dL (0-129) HDL Cholesterol 65 mg/dL (40-60) Cholesterol/HDL Ratio 3.0 Thyroid Stimulating Hormone (TSH) 0.378 uIU/mL (0.358-3.740) Test 02/17/20 09:05 02/17/20 11:34 02/18/20 05:25 Blood Gas pH 7.37 (7.35-7.45) 7.37 (7.35-7.45) Blood Gas PCO2 73 mmHg (35-45) 77 mmHg (35-45) Blood Gas PO2 73 mmHg (71-100) 55 mmHg (71-100) Blood Gas HCO3 43 mmol/L (22-26) 44 mmol/L (22-26) Arterial Bld O2 Saturation (Calc) 93 % (92-99) 85 % (92-99) FiO2 32 % 28 % Troponin I Quantitative < 0.017 ng/mL (0-0.055) Microbiology Micro Microbiology 02/16/20 Blood Culture - Preliminary, Resulted NO GROWTH AFTER 1 DAY... Physical Exams HEENT: Neck Supple W Full Motion Chest: Symmetric Lungs: Other (coarse throughout ) Heart: RRR, other (distant heart tones ) Abdomen: Soft N/T, Other (obese ) Extremities: Other (trace bilateral LE edema ) Neurology: alert, oriented, follow commands Assessment Assessment 1. Acute on chronic respiratory failure with AE COPD. ? ILD 2. Chest pain, atypical. Initial trop negative 3. Chronic probable diastolic CHF; NT Pro BNP WNL, doubt overt HF 4. Hypertension; controlled 5. Hyperlipidemia 6. GERD 7. H/o PE on Eliquis 8. Obesity, ? pulm HTN Recommendations Echo to assess LV systolic function, PAP; this can be done as an outpatient. Lasix PRN. Will give dose today and note resolved Start Lipitor. ASA therapy Lung optimization, BiPAP therapy Consider outpatient ischemic evaluation Follow up in our with Dr. Rojo as scheduled ALISHA UMRRAY APRN Feb 18, 2020 08:15
[2020-02-18] MEDS: methylPREDNISolone SOD SUCC PF 40 MG/ML VIAL. IV SCH ×2 (08:28→20:26)
[2020-02-18] MEDS: LORazepam 0.5 MG TABLET PO SCH ×2 (08:28→20:26)
[2020-02-18] MEDS: PANTOPRAZOLE 40 MG TABLET. PO SCH (08:28)
[2020-02-18] MEDS: METOPROLOL TART IMMED RELEASE 50 MG TABLET PO SCH ×2 (08:28→20:26)
[2020-02-18] MEDS: ASPIRIN ENTERIC COATED 81 MG TABLET.DR. PO SCH (08:28)
[2020-02-18] MEDS ORDERED: FUROSEMIDE 40 MG/4 ML VIAL IVP ONE (08:45)
[2020-02-18] MEDS ORDERED: IPRATRPIUM/ALBUTEROL 0.5/2.5MG 3 ML NEBU. ONE (12:50)
[2020-02-18] MEDS: APIXABAN 5 MG TABLET. PO SCH ×2 (13:00→20:26)
[2020-02-18] MEDS: DOXYCYCLINE HYCLATE 100 MG TABLET PO SCH ×2 (14:20→20:28)
--- NOTE | 2020-02-18 14:40 | CARD ---
MR#: [id number] Date of Study: 02/18/2020 Ordering Physician: NELSON HALLMAN, Referring Physician: NELSON HALLMAN, Tech: Bea Rizo RDCS APPROVED REPORT EXAM: Two-dimensional and M-mode echocardiogram with Doppler and color Doppler. Other Information Quality : Good INDICATION Dyspnea Congestive Heart Failure 2D DIMENSIONS RVDd3.2 (2.9-3.5cm)Left Atrium(2D)3.4 (1.6-4.0cm) IVSd1.0 (0.7-1.1cm)Aortic Root(2D)3.0 (2.0-3.7cm) LVDd4.4 (3.9-5.9cm)PWd0.9 (0.7-1.1cm) LVDs1.8 (2.5-4.0cm)FS (%) 30.0 % SV77.5 mlLVEF(%)60.0 (>50%) Aortic Valve AoV Peak Orion.148.7cm/sAoV VTI29.4cm AO Peak GR.8.8mmHgAO Mean GR.6mmHg GERDA (VTI)3.04cm2 Mitral Valve MV E Rdwfvweq47.4cm/sMV DECEL [id number] MV A Oramwpky558.3cm/sE/A Ratio0.8 Tricuspid Valve TR P. Frykgpwf388rl/sRAP [id number] TR Peak Gr.47ylRuFJMS82bvVg LEFT VENTRICLE The left ventricle is normal size. There is normal left ventricular wall thickness. The left ventricu lar systolic function is normal and the ejection fraction is within normal range. The Ejection Fracti on is 55-60%. There is normal LV segmental wall motion. Transmitral Doppler flow pattern is Grade I-a bnormal relaxation pattern. RIGHT VENTRICLE The right ventricle is normal size. The right ventricular systolic function is normal. ATRIA The left atrium size is normal. The right atrium size is normal. The interatrial septum is intact wit h no evidence for an atrial septal defect or patent foramen ovale as noted on 2-D or Doppler imaging. AORTIC VALVE The aortic valve is calcified but opens well. Doppler and Color Flow revealed no significant aortic r egurgitation. There is no significant aortic valvular stenosis. MITRAL VALVE The mitral valve is normal in structure and function. There is no evidence of mitral valve prolapse. There is no mitral valve stenosis. Doppler and Color-flow revealed trace mitral regurgitation. TRICUSPID VALVE The tricuspid valve is normal in structure and function. Doppler and Color Flow revealed trace to mil d tricuspid regurgitation. The PA pressure was estimated at 38 mmHg. There is no tricuspid valve sten osis. PULMONIC VALVE The pulmonic valve is not well visualized. Doppler and Color Flow revealed no pulmonic valvular regur gitation. There is no pulmonic valvular stenosis. GREAT VESSELS The aortic root is normal in size. The ascending aorta is normal in size. The IVC is normal in size a nd collapses >50% with inspiration. PERICARDIAL EFFUSION There is no evidence of significant pericardial effusion. Critical Notification Critical Value: No <Conclusion> The left ventricle is normal size. The left ventricular systolic function is normal and the ejection fraction is within normal range. The Ejection Fraction is 55-60%. Doppler and Color Flow revealed no significant aortic regurgitation. There is no significant aortic valvular stenosis. Doppler and Color-flow revealed trace mitral regurgitation. Doppler and Color Flow revealed trace to mild tricuspid regurgitation. The PA pressure was estimated at 38 mmHg. Signed by : López Hood MD Electronically Approved : 02/18/2020 14:39:31
[2020-02-18] MEDS: IPRATRPIUM/ALBUTEROL 0.5/2.5MG 3 ML NEBU. NEB SCH ×2 (15:53→20:26)
[2020-02-18] MEDS: traMADol 50 MG TABLET PO PRN (17:49)
--- NOTE | 2020-02-18 18:11 | PN ---
DATE: 02/18/2020 SUBJECTIVE: The patient is sitting in the chair, eating her lunch comfortably. She continued to be short of breath on minimal exertion. She tolerated the BiPAP machine last night and felt generally much improved this morning. PHYSICAL EXAMINATION: GENERAL: When I examined her, she looked pale, no jaundice, cyanosis or thyromegaly. No jugular venous distention. No lower limb edema. VITAL SIGNS: Her heart rate was 81, blood pressure was 159/73, temperature was 98.2, respiratory rate was 21 and oxygen saturation was 92 on 3 liters of oxygen. HEAD, EYES, EARS, NOSE AND THROAT: Showed normocephalic, atraumatic. NECK: Supple. HEART: Showed normal first and second heart sounds. No gallop, rub or murmur. CHEST: Shows central trachea, equally reduced expansion, reduced air entry, vesicular sounds with bilateral scattered rhonchi and bilateral basal crepitation posteriorly. ABDOMEN: Distended, soft, nontender. NEUROLOGIC: She is awake, alert, responding appropriately. All cranial nerves intact. She moves extremities without difficulty. She ambulates with a walker. Her intake was 1920, no output was recorded. LABORATORY DATA: No lab work was done this morning. Her white cell count as of yesterday was 5300, hemoglobin 10, hematocrit 32, MCV 87 and platelet count 238,000. Her serum sodium was 138, potassium was 4.7, chloride 98, bicarbonate 38, anion gap of 2, BUN 9, creatinine 0.7, estimated GFR was 99 mL per minute. Her glucose 142, calcium was 8.5. Her serum triglycerides were 41, total cholesterol was 209, LDL cholesterol 136, VLDL was 8, HDL was 65 and ratio was 3. Her TSH was 0.378. Her blood gases this morning showed a pH of 7.37, pCO2 of 77, pO2 of 45, bicarbonate 44, and oxygen saturation was 85% on FiO2 of 28%. ASSESSMENT: 1. Yhsnh-zr-nkgrltv hypoxic hypercapnic respiratory failure. 2. Chronic obstructive pulmonary disease exacerbation. 3. 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 I actually added ceftriaxone and doxycycline for a remote possibility of community-acquired pneumonia. Other medical problems include hypertension, hyperlipidemia and generalized osteoarthritis. PLAN: To continue with bronchodilator. Continue with Solu-Medrol. Continue with DuoNeb as well as Singulair. I resumed her apixaban and consulted PT, OT for evaluation and treatment and awaiting the insurance authorization for ____ before discharging her home. NELSON HALLMAN MD DR: TYLER/kathy JOB#: [id number] / [id number]
[2020-02-18] MEDS: ATORVASTATIN CALCIUM 20 MG TABLET PO SCH (20:26)
[2020-02-18] MEDS: MONTELUKAST 10 MG TABLET. PO SCH (20:26)
[2020-02-18] MEDS: LACTOBACILLUS RHAMNOSUS GG 1 CAPSULE. PO SCH (20:26)
[2020-02-19] VITALS (21 sets, daily range): BP systolic 114–177; BP diastolic 61–97
[2020-02-19] MEDS: IPRATRPIUM/ALBUTEROL 0.5/2.5MG 3 ML NEBU. NEB SCH ×4 (05:56→20:28)
[2020-02-19 06:21] LABS: HEMATOCRIT 33.6 % (36.0-47.0); HEMOGLOBIN 10.4 g/dL (12.0-15.5); RED BLOOD COUNT 3.91 x10^6/uL (3.50-5.40); RED CELL DISTRIBUTION WIDTH 15.3 % (11.5-14.5); WHITE BLOOD COUNT 5.7 x10^3/uL (4.0-11.0)
[2020-02-19 06:40] LABS: ALBUMIN 3.1 g/dL (3.4-5.0); ALBUMIN/GLOBULIN RATIO 0.8 (1.0-1.7); CALCIUM 8.9 mg/dL (8.5-10.1); CREATININE 0.8 mg/dL (0.6-1.0); GFR 85.6; POTASSIUM 4.2 mmol/L (3.5-5.1); TOTAL BILIRUBIN 0.2 mg/dL (0.2-1.0); TOTAL PROTEIN 6.9 g/dL (6.4-8.2)
[2020-02-19] MEDS: DOXYCYCLINE HYCLATE 100 MG TABLET PO SCH ×2 (07:28→21:01)
[2020-02-19] MEDS: LACTOBACILLUS RHAMNOSUS GG 1 CAPSULE. PO SCH ×2 (07:28→21:01)
[2020-02-19] MEDS: PANTOPRAZOLE 40 MG TABLET. PO SCH (07:28)
[2020-02-19] MEDS: ASPIRIN ENTERIC COATED 81 MG TABLET.DR. PO SCH (07:28)
[2020-02-19] MEDS: APIXABAN 5 MG TABLET. PO SCH ×2 (07:28→21:01)
[2020-02-19] MEDS: methylPREDNISolone SOD SUCC PF 40 MG/ML VIAL. IV SCH ×2 (07:28→21:01)
[2020-02-19] MEDS: LORazepam 0.5 MG TABLET PO SCH ×2 (07:28→21:00)
[2020-02-19] MEDS: METOPROLOL TART IMMED RELEASE 50 MG TABLET PO SCH ×2 (07:29→21:02)
--- NOTE | 2020-02-19 08:11 | PN ---
DATE: 02/19/2020 ATTENDING PHYSICIAN: Dr. Miranda. SUBJECTIVE: Shortness of breath. She is breathing better. She has dyspnea with minimal exertion. We tried to get her a Trilogy BiPAP instrument upon the last discharge 2 weeks ago because she is on [facility] Medicare, they denied the process and she never got her machine. OBJECTIVE FINDINGS: VITAL SIGNS: Her blood pressure today is 149/83 mmHg, pulse is 67 and regular, temperature 98.0 degrees Fahrenheit, oxygen saturation 97% on BiPAP. HEENT: Head is without trauma. Pupils are reactive. Sclerae nonicteric. Oropharynx is clear. NECK: Supple, no bruits. LUNGS: Minimal rhonchi at the bases. CARDIOVASCULAR: Showed distant heart tones. No gallops. Peripheral pulses are palpable and full. ABDOMEN: Obese, protuberant. No organomegaly. Bowel sounds are normoactive. EXTREMITIES: Show trace edema. NEUROLOGIC: Focally intact. Speech is fluent. SKIN: Warm and dry. PERTINENT LABORATORY DATA: Arterial blood gases done on admission, her pH of 7.37, pCO2 of 77 mmHg, pO2 is 55 mmHg. This is on fixed FiO2 28%. Chest x-ray reviewed, atelectasis and scarring at the bases. ASSESSMENT: 1. A 69-year-old female with acute on chronic hypercapnic respiratory failure. 2. Chronic obstructive pulmonary disease. 3. History of pulmonary emboli, on anticoagulation. 4. Complaints of insomnia. PLAN: 1. Continue antibiotics as ordered. 2. Scheduled Restoril at bedtime to allow her to get a good night sleep. 3. Follow up ABGs as indicated. 4. Tentative discharge plans for later this week. FRANNY KNIGHT MD DR: RAF/kathy JOB#: [id number] / [id number]
[2020-02-19] MEDS: diphenhydrAMINE HCL 25 MG CAPSULE PO PRN (08:31)
--- NOTE | 2020-02-19 08:54 | PDOC ---
ALISHA MURRAY INDEPENDENT JEWELER 02/19/20 0854: CARDIO Progress Notes Date & Time Date of Service DATE: 02/19/20 TIME: 08:48 Time of Evaluation 08:48 Subjective Notes Breathing improved. Up ambulating with PT this morning Vitals Vitals Vital Signs Date Time Temp Pulse Resp B/P (MAP) Pulse Ox O2 Delivery O2 Flow Rate FiO2 02/19/20 07:29 76 168/88 02/19/20 06:05 16 97 BiPAP/CPAP 02/19/20 04:00 98.0 02/19/20 00:06 Weight Weight [ ] Input and Output I.O. Intake and Output 02/19/20 07:00 Intake Total 600 ml Balance 600 ml Intake Oral 500 ml IV Total 100 ml # Voids 6 # Bowel Movements 2 Laboratory Labs Laboratory Tests Test 02/17/20 09:05 02/17/20 11:34 02/18/20 05:25 02/19/20 05:33 Blood Gas pH 7.37 (7.35-7.45) 7.37 (7.35-7.45) Blood Gas PCO2 73 mmHg (35-45) 77 mmHg (35-45) Blood Gas PO2 73 mmHg (71-100) 55 mmHg (71-100) Blood Gas HCO3 43 mmol/L (22-26) 44 mmol/L (22-26) Arterial Bld O2 Saturation (Calc) 93 % (92-99) 85 % (92-99) FiO2 32 % 28 % Troponin I Quantitative < 0.017 ng/mL (0-0.055) White Blood Count 5.7 x10^3/uL (4.0-11.0) Red Blood Count 3.91 x10^6/uL (3.50-5.40) Hemoglobin 10.4 g/dL (12.0-15.5) Hematocrit 33.6 % (36.0-47.0) Mean Corpuscular Volume 86 fL (79-100) Mean Corpuscular Hemoglobin 27 pg (25-35) Mean Corpuscular Hemoglobin Concent 31 g/dL (31-37) Red Cell Distribution Width 15.3 % (11.5-14.5) Platelet Count 251 x10^3/uL (140-400) Sodium Level 140 mmol/L (136-145) Potassium Level 4.2 mmol/L (3.5-5.1) Chloride Level 98 mmol/L (98-107) Carbon Dioxide Level 40 mmol/L (21-32) Anion Gap 2 (6-14) Blood Urea Nitrogen 16 mg/dL (7-20) Creatinine 0.8 mg/dL (0.6-1.0) Estimated GFR (Cockcroft-Gault) 85.6 BUN/Creatinine Ratio 20 (6-20) Glucose Level 123 mg/dL (70-99) Calcium Level 8.9 mg/dL (8.5-10.1) Total Bilirubin 0.2 mg/dL (0.2-1.0) Aspartate Amino Transf (AST/SGOT) 11 U/L (15-37) Alanine Aminotransferase (ALT/SGPT) 20 U/L (14-59) Alkaline Phosphatase 78 U/L (46-116) Total Protein 6.9 g/dL (6.4-8.2) Albumin 3.1 g/dL (3.4-5.0) Albumin/Globulin Ratio 0.8 (1.0-1.7) Microbiology Micro Microbiology 02/16/20 Blood Culture - Preliminary, Resulted NO GROWTH AFTER 2 DAYS... Physical Exams HEENT: Neck Supple W Full Motion Chest: Symmetric Lungs: Other (coarse throughout ) Heart: RRR, other (distant heart tones ) Abdomen: Soft N/T, Other (obese ) Extremities: Other (trace bilateral LE edema ) Neurology: alert, oriented, follow commands Assessment Assessment 1. Acute on chronic respiratory failure with AE COPD. Probable ILD 2. Chest pain, atypical.trop negative. AMI ruled out. 3. Chronic probable diastolic CHF; NT Pro BNP WNL, doubt overt HF. no clincial improvement with lasix therapy. Echo with preserved LV systolic function 4. Hypertension; controlled 5. Hyperlipidemia; statin 6. GERD 7. H/o PE on Eliquis 8. Obesity Recommendations ASA, statin therapy Ongoing lung optimization, BiPAP therapy PRN Consider outpatient ischemic evaluation Follow up in our with Dr. Hurd as scheduled AXEL HURD MD 02/19/201942: CARDIO Progress Notes Assessment Assessment Patient seen and examined Acute on chronic respiratory failure with AE COPD. Continues to improve. Probable ILD Chest pain, atypical.trop negative. AMI ruled out. Continuing medical treatment. Chronic probable diastolic CHF; NT Pro BNP WNL, doubt overt HF. no clincial improvement with lasix therapy. Echo with preserved LV systolic function Hypertension; controlled Hyperlipidemia; statin H/o PE on ALISHA Elliott APRN Feb 19, 2020 08:54 AXEL HURD MD Feb 19, 2020 19:43
[2020-02-19] MEDS: NYSTATIN TOPICAL POWDER 15GM BOTTLE. TP SCH ×2 (09:00→21:01)
[2020-02-19] MEDS: traMADol 50 MG TABLET PO PRN (13:16)
[2020-02-19] MEDS: ATORVASTATIN CALCIUM 20 MG TABLET PO SCH (21:01)
[2020-02-19] MEDS: TEMAZEPAM 15 MG CAPSULE PO SCH (21:01)
[2020-02-19] MEDS: MONTELUKAST 10 MG TABLET. PO SCH (21:02)
[2020-02-20] VITALS (14 sets, daily range): BP systolic 99–159; BP diastolic 63–84
[2020-02-20] MEDS: IPRATRPIUM/ALBUTEROL 0.5/2.5MG 3 ML NEBU. NEB SCH ×4 (05:37→19:38)
[2020-02-20] MEDS: NYSTATIN TOPICAL POWDER 15GM BOTTLE. TP SCH ×2 (09:00→20:57)
--- NOTE | 2020-02-20 09:36 | PN ---
DATE: 02/20/2020 ATTENDING PHYSICIAN: Dr. Miranda. SUBJECTIVE: Less dyspneic. She had a better night sleep. She is still very weak. She does not have much of a cough. Appetite has been fair. OBJECTIVE FINDINGS: VITAL SIGNS: Blood pressure today is 128/70 mmHg, her pulse is 82 and regular, temperature 97.2 degrees Fahrenheit, and her oxygen saturation 92% on BiPAP. HEENT: Head is without trauma. Pupils are reactive. Sclerae nonicteric. Oropharynx clear. NECK: Supple, no bruits. LUNGS: Minimal wheezing in the upper airways, but otherwise good air movement. CARDIOVASCULAR: Showed distant heart tones. No gallops. ABDOMEN: Obese, protuberant. No organomegaly. EXTREMITIES: Without edema. NEUROLOGIC: Focally intact. Speech is fluent. SKIN: Warm and dry. ASSESSMENT: 1. A 69-year-old female with acute on chronic hypercapnic respiratory failure, improved. 2. Advanced chronic obstructive pulmonary disease, oxygen dependent. 3. History of recent pulmonary emboli, on chronic anticoagulation. 4. Insomnia symptoms improved. PLAN: 1. Continue antibiotics, intravenous another day. 2. Restoril has helped at night to get her a good night sleep and it has also metabolized, so she is not hungover in the morning. 3. Tentative discharge plans for tomorrow. FRANNY KNIGHT MD DR: RAF/kathy JOB#: [id number] / [id number]
[2020-02-20] MEDS: PANTOPRAZOLE 40 MG TABLET. PO SCH (09:59)
[2020-02-20] MEDS: ASPIRIN ENTERIC COATED 81 MG TABLET.DR. PO SCH (09:59)
[2020-02-20] MEDS: DOXYCYCLINE HYCLATE 100 MG TABLET PO SCH ×2 (09:59→20:58)
[2020-02-20] MEDS: LORazepam 0.5 MG TABLET PO SCH ×2 (09:59→20:58)
[2020-02-20] MEDS: LACTOBACILLUS RHAMNOSUS GG 1 CAPSULE. PO SCH ×2 (09:59→20:58)
[2020-02-20] MEDS: methylPREDNISolone SOD SUCC PF 40 MG/ML VIAL. IV SCH ×2 (10:00→20:57)
[2020-02-20] MEDS: METOPROLOL TART IMMED RELEASE 50 MG TABLET PO SCH ×2 (10:00→20:58)
[2020-02-20] MEDS: APIXABAN 5 MG TABLET. PO SCH ×2 (10:00→20:58)
[2020-02-20] MEDS: MONTELUKAST 10 MG TABLET. PO SCH (20:58)
[2020-02-20] MEDS: ATORVASTATIN CALCIUM 20 MG TABLET PO SCH (20:58)
[2020-02-20] MEDS: diphenhydrAMINE HCL 25 MG CAPSULE PO PRN (20:58)
[2020-02-20] MEDS: TEMAZEPAM 15 MG CAPSULE PO SCH (20:58)
[2020-02-21 00:01] VITALS: BP 149/79
[2020-02-21 02:00] VITALS: BP 149/83
[2020-02-21 04:00] VITALS: BP 152/90
[2020-02-21 04:55] VITALS: BP 160/86
[2020-02-21] MEDS: IPRATRPIUM/ALBUTEROL 0.5/2.5MG 3 ML NEBU. NEB SCH ×2 (05:44→09:26)
[2020-02-21 06:09] VITALS: BP 141/88
[2020-02-21] MEDS: NYSTATIN TOPICAL POWDER 15GM BOTTLE. TP SCH (09:00)
[2020-02-21] MEDS: DOXYCYCLINE HYCLATE 100 MG TABLET PO SCH (09:21)
[2020-02-21] MEDS: LORazepam 0.5 MG TABLET PO SCH (09:21)
[2020-02-21] MEDS: LACTOBACILLUS RHAMNOSUS GG 1 CAPSULE. PO SCH (09:21)
[2020-02-21] MEDS: ASPIRIN ENTERIC COATED 81 MG TABLET.DR. PO SCH (09:21)
[2020-02-21] MEDS: diphenhydrAMINE HCL 25 MG CAPSULE PO PRN (09:22)
[2020-02-21] MEDS: PANTOPRAZOLE 40 MG TABLET. PO SCH (09:22)
[2020-02-21] MEDS: methylPREDNISolone SOD SUCC PF 40 MG/ML VIAL. IV SCH (09:22)
[2020-02-21] MEDS: APIXABAN 5 MG TABLET. PO SCH (09:22)
[2020-02-21] MEDS: METOPROLOL TART IMMED RELEASE 50 MG TABLET PO SCH (09:22)
--- NOTE | 2020-02-21 09:47 | DS ---
DATE OF DISCHARGE: 02/21/2020 ATTENDING PHYSICIAN: Dr. Miranda, Dr. Knight. FINAL DISCHARGE DIAGNOSES: 1. Atpsy-ge-vxrpqwe hypercapnic respiratory failure. 2. Recent history of pulmonary embolus, on anticoagulation. 3. Chronic respiratory failure. 4. Chronic obstructive pulmonary disease. 5. Generalized anxiety. 6. Anemia of chronic disease. 7. Early atypical pneumonia, treated. 8. Labile hypertension. HISTORY AND PHYSICAL: This 69-year-old female has oxygen-dependent COPD and chronic respiratory failure with hypercarbia. She was discharged from the hospital about 2 weeks before coming back again. She was admitted again with increasing shortness of breath and questionable pneumonia at the bases. PHYSICAL EXAMINATION: Please see the dictated note. PERTINENT LABORATORY AND X-RAY STUDIES: The patient had a chest x-ray on admission and a CT angiogram. It showed that central airways are patent. She had mild cardiomegaly. She has bibasilar lung airspace opacities, either atelectasis or infiltrates. She was treated for pneumonia accordingly. Laboratory studies on admission showed the lab work, 10.5 g/dL hemoglobin and white count 6900. Chemistry panel showed a CO2 of 40, sodium 140, potassium 4.2 mEq. Transaminases normal. Arterial blood gases, pH 7.41, pCO2 of 65 and a pO2 of 73 mmHg. Subsequent gases showed persistent hypercarbia, but her pH was maintained. COURSE IN THE HOSPITAL: The patient was admitted. She was started on empiric antibiotics. Home meds continued. Steroids were administered with nebulizer therapy. She did well. She received 5 full days of oral Rocephin and doxycycline. She had some symptoms of insomnia, she did respond well to Restoril 30 mg at bedtime. By the sixth hospital day, her lungs were clear, vital signs were stable, she was back to her baseline. We are still trying to get her a Trilogy BiPAP machine as an outpatient. Unfortunately, we have been unsuccessful due to her Medicaid intermediary [employer] has denied approval. We are still in the process of appealing. Her discharge meds at this time includes cephalexin 500 mg p.o. t.i.d. for 7 more days, Restoril 30 mg at bedtime, prednisone 40 mg daily for 7 days since taper. She will continue her apixaban 5 mg b.i.d., aspirin daily, Lipitor, metoprolol twice a day, Singulair, Protonix, and Ultram, dose is unchanged. I suggest that she follow up with her primary care physician at the regular scheduled time. She was discharged then from our hospital in stable condition with explicit instructions and followup care. TOTAL DISCHARGE TIME SPENT: 39 minutes. FRANNY KNIGHT MD DR: RAF/kathy JOB#: [id number] / [id number] NELSON Giordano MD
[2020-02-21 11:05] VITALS: BP 158/87
== END 2020-02-21 12:00 | disposition home or self-care (01) | DRG 193 ==
LOC: ER 09:05 → 1 SOUTH 10:35 → ICU 02-17 17:56
PROVIDERS: ADMIT Internal Medicine; ATTEND Internal Medicine
PROC: 5A09357 Assistance with Respiratory Ventilation, Less than 24 Consecutive Hours, Continuous Positive Airway Pressure (ICD-10-PCS; principal; 2020-02-17)
PROC: 5A09357 Assistance with Respiratory Ventilation, Less than 24 Consecutive Hours, Continuous Positive Airway Pressure (ICD-10-PCS; 2020-02-18)
PROC: 5A09357 Assistance with Respiratory Ventilation, Less than 24 Consecutive Hours, Continuous Positive Airway Pressure (ICD-10-PCS; 2020-02-19)
PROC: 5A09357 Assistance with Respiratory Ventilation, Less than 24 Consecutive Hours, Continuous Positive Airway Pressure (ICD-10-PCS; 2020-02-20)
PROC: 5A09357 Assistance with Respiratory Ventilation, Less than 24 Consecutive Hours, Continuous Positive Airway Pressure (ICD-10-PCS; 2020-02-21)
DX: J18.9 Pneumonia, unspecified organism (principal); J96.21 Acute and chronic respiratory failure with hypoxia; J96.22 Acute and chronic respiratory failure with hypercapnia; J44.0 Chronic obstructive pulmonary disease with (acute) lower respiratory infection; J44.1 Chronic obstructive pulmonary disease with (acute) exacerbation; J98.11 Atelectasis; D63.8 Anemia in other chronic diseases classified elsewhere; E66.9 Obesity, unspecified; E78.00 Pure hypercholesterolemia, unspecified; E78.5 Hyperlipidemia, unspecified; F41.1 Generalized anxiety disorder; G47.00 Insomnia, unspecified; I11.0 Hypertensive heart disease with heart failure; I25.10 Atherosclerotic heart disease of native coronary artery without angina pectoris; I27.20 Pulmonary hypertension, unspecified; I50.9 Heart failure, unspecified; K21.9 Gastro-esophageal reflux disease without esophagitis; M15.9 Polyosteoarthritis, unspecified; W19.XXXA Unspecified fall, initial encounter; Z88.8 Allergy status to other drugs, medicaments and biological substances; Z79.01 Long term (current) use of anticoagulants; Z79.82 Long term (current) use of aspirin; Z82.3 Family history of stroke; Z82.49 Family history of ischemic heart disease and other diseases of the circulatory system; Z86.711 Personal history of pulmonary embolism; Z90.710 Acquired absence of both cervix and uterus; Z99.81 Dependence on supplemental oxygen; F32.9 Major depressive disorder, single episode, unspecified; F41.9 Anxiety disorder, unspecified; G62.9 Polyneuropathy, unspecified; Z79.899 Other long term (current) drug therapy
CPT/HCPCS: 36415; 71045; 71275; 80048; 80053; 80061; 81001; 82550; 82803; 83605; 83690; 83735; 83880; 84443; 84484; 85025; 85027; 87040; 93005; 93306; 94640; 94660; J0696; J1940; J2920; Q0163; Q9967; 97110; 97116; 97530; 97535; 99291-25; J7030

== ENCOUNTER 2020-03-01 16:44 | Inpatient (IN) | payer OTHER, MEDICAID ==
[~2020-03-01] VITALS: Ht 152.4 cm; Wt 90.1 kg
[~2020-03-01 16:44] MED LIST changes: +APIX5TAB3 PO; +FURO80TA72 PO; +LORA0.5T21 PO; +METO100T7 PO
--- NOTE | 2020-03-01 17:10 | PHYS DOC ---
Past History Past Medical History: Anxiety, CHF, COPD, Depression, High Cholesterol, Hypertension Past Surgical History: No Surgical History Smoking: Non-smoker Alcohol Use: None Adult General Chief Complaint Chief Complaint: DYSPNEA/RESPIRATOY DISTRESS HPI HPI Patient is a 69-year-old female well-known to our facility who presents via EMS for shortness of breath. This is an acute on chronic problem. Patient was recently discharged from our facility for acute exacerbation of CHF approximately 1 week ago. Patient reports 10 pound weight gain since that time despite being compliant with all prescribed medications. She reports progressive worsened needing dyspnea with exertion and inability to lie flat. T sophie, she felt like she was being smothered with minimal activity and required 4l O2 via NC which is more than her home 3L which is new for her concerning her enough to call EMS for transport to our facility for evaluation. Review of Systems Review of Systems Fourteen body systems of review of systems have been reviewed. See HPI for pertinent positives and negative responses, other kruger all other systems are negative, non-pertinent or non-contributory Allergies Allergies Allergies Coded Allergies Type Severity Reaction Last Updated Verified levetiracetam Adverse Reaction Intermediate Hallucinations 02/03/20 Yes Physical Exam Physical Exam Constitutional: Well developed, obese, well nourished, no acute distress, non- toxic appearance. HENT: Normocephalic, atraumatic, bilateral external ears normal, oropharynx moist, no oral exudates, nose normal. Eyes: PERRLA, EOMI, conjunctiva normal, no discharge. Neck: Normal range of motion, no tenderness, supple, no stridor. Cardiovascular: Heart rate regular, sinus rhythm, no murmurs rubs or gallops Lungs & Thorax: Moderate respiratory distress with accessory muscle usage of neck, significant Rales bilateral lung bases Abdomen: Bowel sounds normal, soft, no tenderness, no masses, no pulsatile masses. Nonsurgical abdomen, no peritoneal signs Skin: Warm, dry, no erythema, no rash. Back: No tenderness, no CVA tenderness. Extremities: No tenderness, no cyanosis, no clubbing, ROM intact, no edema. Neurologic: Alert and oriented X 3, grossly normal motor & sensory function, no focal deficits noted. Psychologic: Affect normal, judgement normal, anxious mood Current Patient Data Vital Signs Vital Signs Date Time Temp Pulse Resp B/P (MAP) Pulse Ox O2 Delivery O2 Flow Rate FiO2 03/01/20 17:19 78 20 134/73 (93) 100 Nasal Cannula 3.0 03/01/20 16:50 99.4 Lab Results Laboratory Tests Test 03/01/20 17:04 White Blood Count 8.1 x10^3/uL (4.0-11.0) Red Blood Count 4.26 x10^6/uL (3.50-5.40) Hemoglobin 11.5 g/dL (12.0-15.5) Hematocrit 37.3 % (36.0-47.0) Mean Corpuscular Volume 88 fL (79-100) Mean Corpuscular Hemoglobin 27 pg (25-35) Mean Corpuscular Hemoglobin Concent 31 g/dL (31-37) Red Cell Distribution Width 15.5 % (11.5-14.5) Platelet Count 298 x10^3/uL (140-400) Neutrophils (%) (Auto) 89 % (31-73) Lymphocytes (%) (Auto) 8 % (24-48) Monocytes (%) (Auto) 3 % (0-9) Eosinophils (%) (Auto) 0 % (0-3) Basophils (%) (Auto) 1 % (0-3) Neutrophils # (Auto) 7.3 x10^3uL (1.8-7.7) Lymphocytes # (Auto) 0.6 x10^3/uL (1.0-4.8) Monocytes # (Auto) 0.2 x10^3/uL (0.0-1.1) Eosinophils # (Auto) 0.0 x10^3/uL (0.0-0.7) Basophils # (Auto) 0.0 x10^3/uL (0.0-0.2) Sodium Level 141 mmol/L (136-145) Potassium Level 4.0 mmol/L (3.5-5.1) Chloride Level 98 mmol/L (98-107) Carbon Dioxide Level 43 mmol/L (21-32) Anion Gap 0 (6-14) Blood Urea Nitrogen 20 mg/dL (7-20) Creatinine 1.0 mg/dL (0.6-1.0) Estimated GFR (Cockcroft-Gault) 66.1 BUN/Creatinine Ratio 20 (6-20) Glucose Level 130 mg/dL (70-99) Calcium Level 8.9 mg/dL (8.5-10.1) Total Bilirubin 0.2 mg/dL (0.2-1.0) Aspartate Amino Transf (AST/SGOT) 14 U/L (15-37) Alanine Aminotransferase (ALT/SGPT) 32 U/L (14-59) Alkaline Phosphatase 83 U/L (46-116) Troponin I Quantitative 0.017 ng/mL (0-0.055) PC-Kga-S-Type Natriuretic Peptide 91 pg/mL (0-124) Total Protein 7.3 g/dL (6.4-8.2) Albumin 3.5 g/dL (3.4-5.0) Albumin/Globulin Ratio 0.9 (1.0-1.7) EKG EKG EKG obtained, normal sinus rhythm at 86 bpm, unremarkable intervals, left axis deviation, no acute ischemic findings, no STEMI Radiology/Procedures Radiology/Procedures PROCEDURE: PORTABLE CHEST 1V Exam: Chest one view INDICATION: Shortness of breath TECHNIQUE: Frontal view of the chest Comparisons: 02/16/2020 FINDINGS: The cardiomediastinal silhouette and pulmonary vessels are within normal limits. The lung and pleural spaces are clear. IMPRESSION: No acute cardiopulmonary process. Electronically signed by: Latrell Mccann MD (03/01/2020 5:38 PM) [id number] Course & Med Decision Making Course & Med Decision Making Anxious patient in moderate respiratory distress seen on immediate ER arrival via EMS Airway patent, mild breathing with moderate respiratory distress present on home 3 L oxygen, vital signs grossly unremarkable Comprehensive history and physical exam performed, subsequent diagnostic work-up ordered IV access obtained, 80 mg IV Lasix administered in addition to 162 mg aspirin Patient reassessed numerous times throughout ER work-up but continued to be anxious with moderate respiratory distress despite saturating greater than 90% on typical home O2 Nonetheless, I discussed most likely diagnoses of acute exacerbation of CHF given increased 10 pound weight gain in the last week that is consistent with physical exam findings. I stressed need for admission for continued diuresis and medical management I also discussed this might be an acute presentation of more concerning pathology such as ACS, I feel patient would benefit from admission for chest pain rule out ACS with serial monitoring of cardiac enzymes On-call hospitalist, Dr. Miranda, called and case discussed. He too agreed that patient required admission for further medical management and observation I discussed this conversation with patient and she remained agreeable to admission for further medical observation and management All questions and concerns addressed prior to ER departure to [facility] in stable condition Raissa Disclaimer Raissa Disclaimer This electronic medical record was generated, in whole or in part, using a voice recognition dictation system. The HEART Score for CP Pts HEART Score for Chest Pain: HEART Score for Chest Pain Response (Comments) Value History Slighlty/Non-Suspicious 0 ECG Normal 0 Age > 65 2 Risk Factors >3 Risk Factors or Hx CAD 2 Troponin < Normal Limit 0 Total 4 Risk Factors: Risk Factors: DM, Current or recent (<one month) smoker, HTN, HLP, family history of CAD, obesity. Risk Scores: Score 0 - 3: 2.5% MACE over next 6 weeks - Discharge Home Score 4 - 6: 20.3% MACE over next 6 weeks - Admit for Clinical Observation Score 7 - 10: 72.7% MACE over next 6 weeks - Early Invasive Strategies Departure Departure: Impression: Primary Impression: Acute exacerbation of CHF (congestive heart failure) Additional Impression: Acute on chronic postoperative respiratory failure Disposition: ADMITTED INPATIENT Admitting Physician: Nina Miranda Condition: STABLE Referrals: JAJA TRUONG MD (PCP) Justification of Admission: Justification of Admission: Justification of Admission Dx: Yes (Acute on chronic respiratory distress, CHF exacerbation) Respiratory Failure: Severe Resp Distress Acute COPD Exacerbation: Acute COPD Exacerbation Problem Qualifiers RONEL BEARDEN DO Mar 01, 2020 17:10
[2020-03-01] MEDS ORDERED: ASPIRIN CHEWABLE 81 MG TABLET. PO ONE (17:15)
--- NOTE | 2020-03-01 17:26 | EKG ---
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
[2020-03-01] MEDS ORDERED: FUROSEMIDE 40 MG/4 ML VIAL IVP ONE (17:30)
[2020-03-01 17:36] LABS: BASO % 1 % (0-3); EOS % 0 % (0-3); HEMATOCRIT 37.3 % (36.0-47.0); HEMOGLOBIN 11.5 g/dL (12.0-15.5); LYMPH # 0.6 x10^3/uL (1.0-4.8); LYMPH % 8 % (24-48); MEAN CORPUSCULAR HEMOGLOBIN 27 pg (25-35); MEAN CORPUSCULAR HGB CONC 31 g/dL (31-37); MEAN CORPUSCULAR VOLUME 88 fL (79-100); MONO # 0.2 x10^3/uL (0.0-1.1); MONO % 3 % (0-9); NEUT # 7.3 x10^3uL (1.8-7.7); NEUT % 89 % (31-73); PLATELET COUNT 298 x10^3/uL (140-400); RED BLOOD COUNT 4.26 x10^6/uL (3.50-5.40); RED CELL DISTRIBUTION WIDTH 15.5 % (11.5-14.5); WHITE BLOOD COUNT 8.1 x10^3/uL (4.0-11.0)
--- NOTE | 2020-03-01 17:41 | RAD ---
Exam: Chest one view INDICATION: Shortness of breath TECHNIQUE: Frontal view of the chest Comparisons: 02/16/2020 FINDINGS: The cardiomediastinal silhouette and pulmonary vessels are within normal limits. The lung and pleural spaces are clear. IMPRESSION: No acute cardiopulmonary process. Electronically signed by: Latrell Mccann MD (03/01/2020 5:38 PM) [id number]
[2020-03-01 17:55] LABS: ALBUMIN 3.5 g/dL (3.4-5.0); ALBUMIN/GLOBULIN RATIO 0.9 (1.0-1.7); CALCIUM 8.9 mg/dL (8.5-10.1); GFR 66.1; TOTAL BILIRUBIN 0.2 mg/dL (0.2-1.0); TOTAL PROTEIN 7.3 g/dL (6.4-8.2)
[2020-03-01 18:45] VITALS: BP 121/68
--- NOTE | 2020-03-01 19:00 | NUR ---
The patient, ALIREZA PETERSON, 69 y/o, F admitted by NELSON HALLMAN MD, to room 109, was given written information regarding hospital policies, unit procedures and contact persons. Valuables were checked and left with the patient. Physical needs assessed. Medications and medical history reviewed. Pt adequately remembered her medications. She is independent with toileting to bedside commode. Will continue to monitor.
[2020-03-01] MEDS ORDERED: ANTI-COAG MONITOR BY PHARMACY. MC PRN (22:00)
[2020-03-01] MEDS ORDERED: ASPI-630 PO (22:19)
[2020-03-01] MEDS ORDERED: TEMA30CA6 PO (22:19)
[2020-03-01] MEDS ORDERED: PRED20TA PO (22:19)
[2020-03-01 22:39] LABS: BGAS PH 7.39 (7.35-7.45)
[2020-03-01] MEDS: LORazepam 0.5 MG TABLET PO SCH (22:56)
[2020-03-01] MEDS: METOPROLOL TART IMMED RELEASE 50 MG TABLET PO SCH (22:57)
[2020-03-01] MEDS: methylPREDNISolone SOD SUCC PF 40 MG/ML VIAL. IV SCH (22:57)
[2020-03-01] MEDS: APIXABAN 5 MG TABLET. PO SCH (22:57)
[2020-03-01 23:00] VITALS: BP 150/83
[2020-03-01] MEDS ORDERED: ACETAMINOPHEN 325 MG TABLET PO PRN (23:00)
[2020-03-01] MEDS: IPRATRPIUM/ALBUTEROL 0.5/2.5MG 3 ML NEBU. NEB SCH (23:47)
[2020-03-02] MEDS: IPRATRPIUM/ALBUTEROL 0.5/2.5MG 3 ML NEBU. NEB SCH ×3 (05:50→20:04)
[2020-03-02 06:03] VITALS: BP 121/75
[2020-03-02] MEDS: FUROSEMIDE 80 MG TABLET PO SCH (08:26)
[2020-03-02] MEDS: methylPREDNISolone SOD SUCC PF 40 MG/ML VIAL. IV SCH ×3 (08:26→20:05)
[2020-03-02] MEDS: POTASSIUM CHLORIDE 10 MEQ TABLET.ER. PO SCH (08:26)
[2020-03-02] MEDS: APIXABAN 5 MG TABLET. PO SCH ×2 (08:26→20:06)
[2020-03-02] MEDS: LORazepam 0.5 MG TABLET PO SCH ×2 (08:26→20:06)
[2020-03-02] MEDS: METOPROLOL TART IMMED RELEASE 50 MG TABLET PO SCH ×2 (08:27→20:06)
[2020-03-02] MEDS ORDERED: ACETAMINOPHEN 325 MG TABLET PO PRN (08:30)
[2020-03-02] MEDS ORDERED: ONDANSETRON PF 4 MG/2 ML VIAL. IVP PRN (08:30)
[2020-03-02 11:07] LABS: BGAS PH 7.43 (7.35-7.45)
[2020-03-02 11:22] VITALS: BP 117/62
[2020-03-02 15:00] VITALS: BP 153/80
--- NOTE | 2020-03-02 17:28 | HP ---
ADMIT DATE: 03/01/2020 HISTORY OF PRESENT ILLNESS: The patient is a 69-year-old -[place] female patient, who came to the Emergency Room yet again with the complaint of shortness of breath and respiratory distress. The patient was recently discharged from our facility for acute exacerbation of congestive heart failure approximately 1-week ago. She reported 10-pound weight gain since that time despite being compliant with all her prescribed medication. She reports progressive worsening dyspnea with exertion and inability to lie flat. She felt like she was being smothered with minimal activity and required 4 liters of oxygen by nasal cannula, which is more than her usual 3 liters, which is new for her. She denied any cough, phlegm or hemoptysis. She was evaluated in the Emergency Room and initially, the patient was in moderate respiratory distress with accessory muscle usage of the neck significantly and bilateral lung bases. She has had no fever and she has had lab work including arterial blood gases. Her pH was 7.39, pCO2 of 82, pO2 of 32, bicarbonate was 50 and oxygen saturation was 58% on FiO2 of 32%. The patient was admitted and was started on IV Solu-Medrol as well as DuoNeb together with all her other medications, was put on BiPAP. PAST MEDICAL HISTORY: Significant for acute on chronic hypercapnic respiratory failure, recent pulmonary emboli, on anticoagulation, chronic respiratory failure, chronic obstructive pulmonary disease, generalized anxiety, anemia of chronic disease, labile hypertension. PAST SURGICAL HISTORY: Significant for left wrist fracture. She is status post open reduction and internal fixation. She also had , esophagogastroduodenoscopy and colonoscopy. ALLERGIES: She is allergic to KEPPRA that was given to her by mistake, but she has no known other drug allergies. FAMILY HISTORY: She has 6 brothers and 4 because of myocardial infarction and CVA, has 2 brothers that are still alive. She has 4 sisters, 2 of them in childhood and one of heart failure. Her father at the age of 76 because of myocardial infarction. Mother at age of 71 because of myocardial infarction. SOCIAL HISTORY: She is her . She has one son. She never smoked, never drank alcohol or used any recreational drugs. 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 REVIEW OF SYSTEMS: As per history of present illness. MEDICATIONS: She is currently on following home medications: She is on apixaban 5 mg twice a day, metoprolol tartrate 100 mg twice a day, aspirin 81 mg once a day, lorazepam 0.5 mg twice a day, temazepam 30 mg at bedtime, potassium chloride 10 mEq once a day, furosemide 80 mg once a day and prednisone 20 mg once a day. PHYSICAL EXAMINATION: GENERAL: On arrival to the Emergency Room, the patient was tachypneic, but she was not pale. No jaundice, cyanosis or thyromegaly. No jugular venous distention. No limb edema. VITAL SIGNS: Her heart rate was 84, blood pressure was 143/68, temperature was 99.4, respiratory rate was 24, and oxygen saturation 100% on 3 liters of oxygen by nasal cannula. HEAD, EYES, EARS, NOSE AND THROAT: Showed normocephalic, atraumatic. NECK: Supple. HEART: Showed normal first and second heart sounds. No gallop or murmur. CHEST: Shows central trachea, equally reduced expansion, reduced air entry, vesicular breath sounds with bilateral basal crepitation posteriorly. She has also scattered rhonchi. She was using her accessory muscles. ABDOMEN: Markedly distended, soft, nontender. NEUROLOGIC: She was awake, alert, responding appropriately. All cranial nerves intact. EXTREMITIES: She moves extremities without difficulty. LABORATORY DATA: Her lab work on arrival showed a white cell count of 8100, hemoglobin 11.5, hematocrit 37.3, MCV 88 and platelet count 298,000. Her serum sodium was 141, potassium 4, chloride 98, bicarbonate 43, anion gap of 0, BUN 20, creatinine 1, estimated GFR was 66 mL per minute, her glucose was 130, calcium was 8.9. Total bilirubin, AST, ALT, alkaline phosphatase were normal. Total protein was 7.3, albumin was 3.5. She has 3 sets, the first set of cardiac enzyme was less than 0.017. Her arterial blood gases on admission showed a pH of 7.39, pCO2 of 82, pO2 of 32, bicarbonate 50 and oxygen saturation was 58% on FiO2 of 32%. The patient was admitted and started on BiPAP and continued on her medication. I added Solu-Medrol and DuoNeb, will follow her clinically and also repeat her blood gas. We have requested Trilogy for multiple times. Unfortunately, her insurance has declined and she is in the process of switching her insurance to Medicare, so that she can get the BiPAP machine or Trilogy that really helps her and improves her blood gases and her feeling well being. NELSON HALLMAN MD DR: TYLER/kathy JOB#: [id number] / [id number]
--- NOTE | 2020-03-02 18:14 | NUR ---
pt ABG was better this morning than previous draw. Pt was tearful today d/t family issues and readmissions to hospital, and stress. She is eager to go home. Dr Miranda said Bipap @ and see how tomorrow is and she might be able to D/C. Educated pt that she needs to switch over to traditional medicare to get the Trilogy at home to lower readmission. pt understood as well as daughter Trisha. HARLEY Kang
[2020-03-02 19:17] VITALS: BP 120/66
--- NOTE | 2020-03-02 21:21 | PN ---
DATE: 03/02/2020 SUBJECTIVE: The patient was admitted yesterday with acute on chronic hypoxic hypercapnic respiratory failure. She was started on IV Solu-Medrol, DuoNeb and was put on BiPAP machine and she did actually very well. When I saw her this afternoon, she was sitting at the edge of the bed comfortably, in no apparent distress. She is not using any accessory muscles. She was able to finish her sentence without difficulty. PHYSICAL EXAMINATION: GENERAL: When I examined her, she looked pale. No jaundice, cyanosis or thyromegaly. No jugular venous distention. No limb edema. VITAL SIGNS: Her heart rate was 82, blood pressure 153/80, temperature was 98, respiratory rate 20, and oxygen saturation was 95% on 3 liters of oxygen. HEAD, EYES, EARS, NOSE AND THROAT: Showed normocephalic, atraumatic. NECK: Supple. HEART: Showed normal first and second heart sounds. No gallop, rub or murmur. CHEST: Showed central trachea, equally reduced expansion, reduced air entry, vesicular sounds, very few scattered rhonchi and bilateral coarse early inspiratory crepitation on both sides posteriorly. ABDOMEN: Markedly distended, soft, nontender. NEUROLOGIC: She is awake, alert, responding appropriately. All cranial nerves are intact. He moves extremities without difficulty. LABORATORY DATA: Her blood gases this morning showed a pH of 7.433, pCO2 of 70, pO2 of 87, bicarbonate 47 and oxygen saturation was 96% on FiO2 of 32%. PLAN: My plan is to continue with all her current medications, continue with BiPAP machine overnight and hopefully discharge her back home tomorrow. Her daughter is working to switch her to traditional Medicare, so that she can get her BiPAP machine or Trilogy. NELSON HALLMAN MD DR: TYLER/kathy JOB#: [id number] / [id number]
[2020-03-02 22:59] VITALS: BP 121/79
[2020-03-03] MEDS: IPRATRPIUM/ALBUTEROL 0.5/2.5MG 3 ML NEBU. NEB SCH ×4 (04:51→20:54)
[2020-03-03] MEDS: methylPREDNISolone SOD SUCC PF 40 MG/ML VIAL. IV SCH ×3 (05:37→17:00)
[2020-03-03 05:41] VITALS: BP 146/77
[2020-03-03 06:12] LABS: HEMATOCRIT 37.6 % (36.0-47.0); HEMOGLOBIN 11.7 g/dL (12.0-15.5); RED BLOOD COUNT 4.33 x10^6/uL (3.50-5.40); RED CELL DISTRIBUTION WIDTH 15.6 % (11.5-14.5); WHITE BLOOD COUNT 8.2 x10^3/uL (4.0-11.0)
[2020-03-03 06:37] LABS: ALBUMIN 3.4 g/dL (3.4-5.0); ALBUMIN/GLOBULIN RATIO 0.9 (1.0-1.7); CALCIUM 9.1 mg/dL (8.5-10.1); CREATININE 0.9 mg/dL (0.6-1.0); GFR 74.7; POTASSIUM 4.3 mmol/L (3.5-5.1); TOTAL BILIRUBIN 0.4 mg/dL (0.2-1.0); TOTAL PROTEIN 7.3 g/dL (6.4-8.2)
[2020-03-03] MEDS: POTASSIUM CHLORIDE 10 MEQ TABLET.ER. PO SCH (08:04)
[2020-03-03] MEDS: APIXABAN 5 MG TABLET. PO SCH ×2 (08:04→20:24)
[2020-03-03] MEDS: FUROSEMIDE 80 MG TABLET PO SCH (08:04)
[2020-03-03] MEDS: LORazepam 0.5 MG TABLET PO SCH ×2 (08:04→20:24)
[2020-03-03] MEDS: METOPROLOL TART IMMED RELEASE 50 MG TABLET PO SCH ×2 (08:05→20:24)
[2020-03-03 11:22] VITALS: BP 127/78
[2020-03-03] MEDS ORDERED: TRAM50TA PO (14:18)
[2020-03-03] MEDS ORDERED: traMADol 50 MG TABLET PO PRN (16:00)
--- NOTE | 2020-03-03 18:20 | PN ---
DATE: 03/03/2020 SUBJECTIVE: The patient is sitting on the edge of the bed comfortably in no apparent distress. She is feeling much better. Unfortunately, she did not qualify for Trelegy and looking at the qualifying criteria for her, it transpired that overnight pulse oximetry may qualify her together with the arterial blood gases and initially we decided to discharge her home. However, the patient was persuaded to stay overnight and to have this overnight pulse oximetry to see if this will qualify her for Trelegy as she made dramatic improvement with that. In fact, her blood gases especially pCO2 has improved and carbon dioxide came down and generally feeling much better. PHYSICAL EXAMINATION: GENERAL: When I examined her today, she looked well and was clearly in no apparent respiratory distress. No pallor, jaundice, cyanosis or thyromegaly. No jugular venous distention. No lower limb edema. VITAL SIGNS: Her heart rate was 79, blood pressure was 127/79, temperature was 98.2, respiratory rate 22, and oxygen saturation was 96% on 3 liters of oxygen. HEENT: Showed normocephalic, atraumatic. NECK: Supple. HEART: Showed normal first and second heart sounds. No gallop or murmur. CHEST: Shows central trachea, equally reduced expansion, reduced air entry, vesicular sounds, very few scattered rhonchi and bilateral coarse crepitation, particularly on both sides posteriorly. ABDOMEN: Distended, soft, nontender. NEUROLOGIC: She was awake, alert, responding appropriately. All cranial nerves intact. She moves extremities without difficulty. Her intake and output were incompletely recorded. LABORATORY DATA: Her lab work this morning showed a white cell count of 8200, hemoglobin 11.7, hematocrit 37.6, MCV 87 and platelet count 322,000. Serum sodium 142, potassium 4.3, chloride 100, bicarbonate 42, anion gap of 0, BUN 23, creatinine 0.9, estimated GFR was 75 mL per minute. Her glucose 125, calcium was 9.1. Total bilirubin, AST, ALT, alkaline phosphatase were normal. Her total protein 7.3, albumin was 3.4. She had 3 sets of cardiac enzymes that ruled out myocardial infarction. ASSESSMENT: 1. Acute on chronic hypoxic hypercapnic respiratory failure. 2. Recent pulmonary embolism, for which she is on apixaban. 3. Chronic respiratory failure. 4. Chronic obstructive pulmonary disease. 5. Generalized anxiety. 6. Anemia of chronic disease. 7. ____ hypertension and perhaps questionable interstitial lung disease. PLAN: My plan is to continue with Solu-Medrol. Continue with nebulized albuterol and Atrovent. Continue with potassium supplement and nebulizer, albuterol and Atrovent. Continue with apixaban. I will cut down her steroids to 40 mg twice a day. She will have her overnight pulse oximeter tonight and tomorrow, she can be discharged home hopefully with the results of overnight pulse oximetry supporting her request for [facility]. NELSON HALLMAN MD DR: TYLER/kathy JOB#: [id number] / [id number]
[2020-03-03 19:53] VITALS: BP 135/65
[2020-03-03] MEDS: AMMONIUM LACTATE 12% TOPICAL LOTION 226GM BOTTLE. TP SCH (20:24)
[2020-03-03 22:40] VITALS: BP 138/70
[2020-03-04] MEDS: methylPREDNISolone SOD SUCC PF 40 MG/ML VIAL. IV SCH ×2 (04:54→17:04)
[2020-03-04] MEDS: IPRATRPIUM/ALBUTEROL 0.5/2.5MG 3 ML NEBU. NEB SCH ×4 (05:22→21:16)
[2020-03-04 05:54] VITALS: BP 150/56
[2020-03-04] MEDS: POTASSIUM CHLORIDE 10 MEQ TABLET.ER. PO SCH (07:51)
[2020-03-04] MEDS: METOPROLOL TART IMMED RELEASE 50 MG TABLET PO SCH ×2 (07:51→20:29)
[2020-03-04] MEDS: LORazepam 0.5 MG TABLET PO SCH ×2 (07:51→20:28)
[2020-03-04] MEDS: APIXABAN 5 MG TABLET. PO SCH ×2 (07:52→20:28)
[2020-03-04] MEDS: AMMONIUM LACTATE 12% TOPICAL LOTION 226GM BOTTLE. TP SCH ×2 (07:52→20:29)
[2020-03-04] MEDS: FUROSEMIDE 80 MG TABLET PO SCH (07:52)
[2020-03-04 10:46] VITALS: BP 144/65
--- NOTE | 2020-03-04 12:13 | PN ---
DATE: 03/04/2020 ATTENDING PHYSICIAN: Dr. Miranda. CHIEF COMPLAINT: Shortness of breath. SUBJECTIVE: She is breathing better. Her saturation is adequate. She has no new complaints. No cough or fevers. OBJECTIVE FINDINGS: VITAL SIGNS: Blood pressure today is 150/56, pulse 82 and regular, temperature 98.7 degrees Fahrenheit, oxygen saturation 91% on 2 liters of nasal cannula. HEENT: Head is without trauma. Pupils are reactive. Sclerae are nonicteric. Oropharynx is clear. NECK: Supple, no bruits identified. LUNGS: Minimal crackles at the bases. CARDIOVASCULAR: Showed regular heart tones. No gallops. ABDOMEN: Obese, protuberant. No organomegaly. Bowel sounds were hypoactive. EXTREMITIES: Showed trace edema. NEUROLOGIC: Focally intact. ASSESSMENT: 1. A 69-year-old female with acute on chronic respiratory failure. 2. Congestive heart failure component. 3. Hypercarbic respiratory failure and chronic obstructive pulmonary disease. 4. Morbid obesity. 5. Generalized anxiety. 6. Recent pulmonary emboli, on chronic anticoagulation. 7. Essential hypertension. PLAN: 1. Continue diuresis. 2. Supplemental oxygen. 3. Nebulizer therapy. 4. We are still working on getting her a Trilogy BiPAP machine for home. FRANNY KNIGHT MD DR: RAF/kathy JOB#: [id number] / [id number]
[2020-03-04] MEDS ORDERED: FLU VACC QS 2020-21(6MOS+)/PF 0.5 ML SYRINGE. VAX IM ONE (12:45)
[2020-03-04 15:07] VITALS: BP 119/61
[2020-03-04 18:36] VITALS: BP 130/73
--- NOTE | 2020-03-04 18:48 | NUR ---
NURSING NOTE: PT IN BED UPON MEDICATION ADMINISTRATION AND ASSESSMENT THIS AM. ROUNDED WITH MD, PT TO STAY ONE MORE NIGHT AND DC ON 03/05/20. PT ALERT AND ORIENTED X4. WILL CONTINUE TO MONITOR. HARLEY LIMON
[2020-03-04 23:21] VITALS: BP 151/84
[2020-03-05] MEDS: methylPREDNISolone SOD SUCC PF 40 MG/ML VIAL. IV SCH (04:43)
[2020-03-05 05:27] VITALS: BP 165/75
[2020-03-05] MEDS: IPRATRPIUM/ALBUTEROL 0.5/2.5MG 3 ML NEBU. NEB SCH ×3 (05:48→16:09)
[2020-03-05] MEDS: APIXABAN 5 MG TABLET. PO SCH (07:41)
[2020-03-05] MEDS: LORazepam 0.5 MG TABLET PO SCH (07:41)
[2020-03-05] MEDS: METOPROLOL TART IMMED RELEASE 50 MG TABLET PO SCH (07:41)
[2020-03-05] MEDS: AMMONIUM LACTATE 12% TOPICAL LOTION 226GM BOTTLE. TP SCH (07:41)
[2020-03-05] MEDS: POTASSIUM CHLORIDE 10 MEQ TABLET.ER. PO SCH (07:41)
[2020-03-05] MEDS: FUROSEMIDE 80 MG TABLET PO SCH (07:42)
[2020-03-05 11:18] VITALS: BP 148/65
[2020-03-05] MEDS ORDERED: FLU VACC QS 2020-21(6MOS+)/PF 0.5 ML SYRINGE. VAX IM ONE (11:30)
--- NOTE | 2020-03-05 11:34 | NUR ---
NURSING NOTE PT HAD BLOOD IN STOOL. PT STATES SHE HAS HEMORRHOIDS. DR KNIGHT NOTIFIED. PER DR KNIGHT, HOLD PM DOSE OF ELIQUIS. RESTART ELIQUIS TOMORROW NORMAL. IF BLEEDING SIGNIFICANT CONTINUES, GO TO NEAREST ED. HARLEY HERNANDEZ.
--- NOTE | 2020-03-05 12:27 | DS ---
DATE OF DISCHARGE: 03/05/2020 ATTENDING PHYSICIAN: Dr. Miranda. FINAL DISCHARGE DIAGNOSES: 1. Acute on chronic hypercarbic respiratory failure. 2. Oxygen-dependent chronic obstructive pulmonary disease. 3. Recent diagnosis of pulmonary embolus, on chronic anticoagulation. 4. Morbid obesity. 5. Generalized anxiety disorder. 6. Essential hypertension. 7. Congestive heart failure component. HISTORY OF PRESENT ILLNESS: This is a 69-year-old female who was admitted from the ED with acute on chronic hypercarbic respiratory failure. She had been in the process of getting a Trilogy BiPAP machine, but unfortunately her Medicare intermediary will not authorize this. She has had frequent admissions with exacerbation of COPD and hypercarbic respiratory failure. PHYSICAL EXAMINATION: Please see the dictated note. PERTINENT LABORATORY AND X-RAY STUDIES: On this admission, her chest x-ray was clear. Hemoglobin maintained 11.5 g/dL with white count of 8100. Electrolytes within normal range. Nonfasting blood sugar 125, CO2 is 42. Arterial blood gases initially pH 7.39, pCO2 of 82, pO2 of 32. Repeat in the next day and improved pCO2 of 70 mmHg, which is about her baseline, pO2 87 and pH 7.43. COURSE IN THE HOSPITAL: The patient was admitted and started on empiric antibiotics, corticosteroids and nebulizer therapy. She responded to some diuresis. She did well. Diet was advanced and her steroid dose was tapered. On the fourth hospital day, her lungs were clear. Vital signs are stable. We are still trying to get her a Trilogy machine as an outpatient. She is discharged home with the following meds. She will continue her apixaban 5 mg b.i.d., aspirin daily, Lasix 80 mg daily, lorazepam p.r.n., metoprolol 100 mg b.i.d., potassium, Restoril 30 mg at bedtime, prednisone 40 mg p.o. daily for 7 days and then taper and a script for p.r.n. Ultram 100 mg p.o. q. 8 hours p.r.n. pain. She will followup with her PCP as scheduled. Her prognosis is fair. She was discharged then in stable condition with explicit instructions and followup care. FRANNY KNIGHT MD DR: RAF/kathy JOB#: [id number] / [id number] rea Serrano Dr.
--- NOTE | 2020-03-05 16:41 | NUR ---
NURSING NOTE: DISCHARGE PT DISCHARGED FROM UNIT VIA AT 1642. VERBAL AND WRITTEN DISCHARGE INSTRUCTIONS GIVEN, VERBAL UNDERSTANDING GIVEN. RX GIVEN FOR PREDNISONE AND ULTRAM. PT INSTRUCTED TO HOLD THIS EVENINGS DOSE OF ELIQUIS DUE TO BLOOD IN THE STOOL AND RESTART IN THE MORNING. PT INSTRUCTED TO GO TO THE ER IF STILL BLEEDING. PT VERBALIZED UNDERSTANDING AND STATED SHE HAS HEMORRHOIDS. NO COMPLICATIONS. HARLEY LIMON
== END 2020-03-05 16:46 | disposition home or self-care (01) | DRG 189 ==
LOC: ER 16:44 → 1 SOUTH 18:27
PROVIDERS: ADMIT Internal Medicine; ATTEND Internal Medicine
PROC: 5A09357 Assistance with Respiratory Ventilation, Less than 24 Consecutive Hours, Continuous Positive Airway Pressure (ICD-10-PCS; 2020-03-01)
PROC: 5A09357 Assistance with Respiratory Ventilation, Less than 24 Consecutive Hours, Continuous Positive Airway Pressure (ICD-10-PCS; 2020-03-02)
PROC: 5A09357 Assistance with Respiratory Ventilation, Less than 24 Consecutive Hours, Continuous Positive Airway Pressure (ICD-10-PCS; 2020-03-03)
PROC: 5A09357 Assistance with Respiratory Ventilation, Less than 24 Consecutive Hours, Continuous Positive Airway Pressure (ICD-10-PCS; principal; 2020-03-04)
DX: J96.22 Acute and chronic respiratory failure with hypercapnia (principal); J44.1 Chronic obstructive pulmonary disease with (acute) exacerbation; J96.21 Acute and chronic respiratory failure with hypoxia; D63.8 Anemia in other chronic diseases classified elsewhere; E66.01 Morbid (severe) obesity due to excess calories; E78.00 Pure hypercholesterolemia, unspecified; F41.1 Generalized anxiety disorder; I11.0 Hypertensive heart disease with heart failure; I50.9 Heart failure, unspecified; J44.9 Chronic obstructive pulmonary disease, unspecified; Z79.01 Long term (current) use of anticoagulants; Z79.82 Long term (current) use of aspirin; Z79.899 Other long term (current) drug therapy; Z82.3 Family history of stroke; Z82.49 Family history of ischemic heart disease and other diseases of the circulatory system; Z86.711 Personal history of pulmonary embolism; Z99.81 Dependence on supplemental oxygen; F32.9 Major depressive disorder, single episode, unspecified; F41.9 Anxiety disorder, unspecified; Z88.8 Allergy status to other drugs, medicaments and biological substances; Z68.38 Body mass index [BMI] 38.0-38.9, adult
CPT/HCPCS: 36415; 36600; 71045; 80053; 82803; 83880; 84484; 85025; 85027; 90471; 93005; 94640; 94660; 94760; 94799; 96374; J1940; J2920; 90686; 99285-25

== ENCOUNTER 2020-05-30 10:49 | Emergency (ER) | payer MEDICARE, MEDICAID ==
[~2020-05-30] VITALS: Ht 152.4 cm; Wt 94.2 kg
[~2020-05-30 10:49] MED LIST changes: +ASPI-630 PO; +PRED20TA PO; +TEMA30CA6 PO; +TRAM50TA PO
--- NOTE | 2020-05-30 11:30 | PHYS DOC ---
Past History Past Medical History: CHF, COPD, Hypertension Past Surgical History: Other Additional Past Surgical Histo: UNKNOWN SURGICAL HX Smoking: Non-smoker Alcohol Use: None General Adult EDM: Chief Complaint: CHEST PAIN HPI: HPI: 69-year-old female past medical history of COPD/REINALDO (trilogy q), TIA, PE on eliquis, hypertension and CHF (unsure ef, no ACID), presents to the ED brought in by her daughter with complaints of nonradiating, midsternal, chest "heaviness" that started around 330am with associated dizziness, dry cough and difficulties breathing. Patient reports she always has chest pain but this is different because it's "heavy." History of bronchitis 2 weeks ago that was treated with antibiotics. Reports no history of intubations or admission for difficulties breathing. Has never had a cardiac cath. Does not know what nitro is. Review of Systems: Review of Systems: Constitutional: Denies fever or chills Eyes: Denies change in visual acuity HENT: Denies nasal congestion or sore throat Respiratory: Denies cough or shortness of breath Cardiovascular: Denies chest pain or edema GI: Denies abdominal pain, nausea, vomiting, bloody stools or diarrhea : Denies dysuria Musculoskeletal: Denies back pain or joint pain Integument: Denies rash Neurologic: Denies headache, focal weakness or sensory changes Endocrine: Denies polyuria or polydipsia Lymphatic: Denies swollen glands Psychiatric: Denies depression or anxiety Allergies: Allergies: Allergies Coded Allergies Type Severity Reaction Last Updated Verified levetiracetam Adverse Reaction Intermediate Hallucinations 02/03/20 Yes Physical Exam: PE: Constitutional: Well developed, well nourished, no acute distress, non-toxic appearance. [] HENT: Normocephalic, atraumatic, bilateral external ears normal, oropharynx moist, no oral exudates, nose normal. [] Eyes: PERRLA, EOMI, conjunctiva normal, no discharge. [] Neck: Normal range of motion, no tenderness, supple, no stridor. [] Cardiovascular:Heart rate regular rhythm, no murmur [] Lungs & Thorax: Bilateral breath sounds clear to auscultation [] Abdomen: Bowel sounds normal, soft, no tenderness, no masses, no pulsatile masses. [] Skin: Warm, dry, no erythema, no rash. [] Back: No tenderness, no CVA tenderness. [] Extremities: No tenderness, no cyanosis, no clubbing, ROM intact, no edema. [] Neurologic: Alert and oriented X 3, normal motor function, normal sensory function, no focal deficits noted. [] Psychologic: Affect normal, judgement normal, mood normal. [] EKG: EKG: Sinus rhythm at 79 bpm, no axis deviation, normal intervals, no T wave inversions, no ST elevations or ST depressions no Q waves Radiology/Procedures: Radiology/Procedures: IMAGING REPORT Signed PATIENT: ALIREZA PETERSONCOUNT: [id number] : 1950 LOCATION: ER AGE: 69 SEX: F EXAM STATUS: REG ER ORD. PHYSICIAN: ATILIO CARRERA DO REASON: elqiuis PROCEDURE: PORTABLE CHEST 1V EXAM: XR CHEST 1V 05/30/2020 11:17 AM CLINICAL INDICATION: Eliquis COMPARISON: Chest radiograph 03/01/2020 TECHNIQUE: AP view the chest FINDINGS: The cardiomediastinal silhouette is stable. Lungs are hypoexpanded. There is no focal opacity, pleural effusion, or pneumothorax. There is bilateral glenohumeral and acromioclavicular osteoarthrosis. IMPRESSION: Hypoexpanded lungs. No new abnormality. Electronically signed by: Sofi Oglesby MD (05/30/2020 11:35 AM) [id number] DICTATED AND SIGNED BY: SOFI OGLESBY MD DATE: 05/30/20 1134 CC: JAJA TRUONG MD; ATILIO CARRERA DO ~MTH0 0 IMAGING REPORT Signed PATIENT: ALIREZA PETERSONCOUNT: [id number] : 1950 LOCATION: ER AGE: 69 SEX: F EXAM STATUS: REG ER ORD. PHYSICIAN: ATILIO CARRERA DO REASON: elqiuis PROCEDURE: PORTABLE CHEST 1V EXAM: XR CHEST 1V 05/30/2020 11:17 AM CLINICAL INDICATION: Eliquis COMPARISON: Chest radiograph 03/01/2020 TECHNIQUE: AP view the chest FINDINGS: The cardiomediastinal silhouette is stable. Lungs are hypoexpanded. There is no focal opacity, pleural effusion, or pneumothorax. There is bilateral glenohumeral and acromioclavicular osteoarthrosis. IMPRESSION: Hypoexpanded lungs. No new abnormality. Electronically signed by: Sofi Oglesby MD (05/30/2020 11:35 AM) [id number] DICTATED AND SIGNED BY: SOFI OGLESBY MD DATE: 05/30/20 1134 CC: JA[facility] TRUONG MD; [facility] ~MTH0 0 Heart Score: HEART Score for Chest Pain: HEART Score for Chest Pain Response (Comments) Value History Slighlty/Non-Suspicious 0 ECG Normal 0 Age > 65 2 Risk Factors >3 Risk Factors or Hx CAD 2 Troponin < Normal Limit 0 Total 4 Risk Factors: Risk Factors: DM, Current or recent (<one month) smoker, HTN, HLP, family history of CAD, obesity. Risk Scores: Score 0 - 3: 2.5% MACE over next 6 weeks - Discharge Home Score 4 - 6: 20.3% MACE over next 6 weeks - Admit for Clinical Observation Score 7 - 10: 72.7% MACE over next 6 weeks - Early Invasive Strategies Course & Med Decision Making: Course & Med Decision Making Pertinent Labs and Imaging studies reviewed. (See chart for details) I was unable to reach pts' contacts listed in emr. I spoke to Dr. Dyson (hosptalist) who is very well acquainted with this patient who is on hospice, for end-stage COPD and reports patient does have dementia/is not a reliable historian. He reports she has been admitted 4-5 times for chest pain, has had a negative cath and her symptoms are primarily anxiety related. ED work-up with no new ischemia on EKG, 2 - troponins, and a CT of the chest that showed no pulmonary embolus, bibasilar atelectasis. Patient afebrile with no tachycardia or leukocytosis. Urinalysis with no infection, trace blood, 1-2 RBCs. Patient is calm, in no distress and very talkative-laughs about her poor recall. Given that she is DNR. Will discharge home, back to hospice. Encouraged urgent outpatient follow-up with PMD. Life-threatening processes were considered but are low suspicion at this time, given history, physical exam and ED workup. Pt was educated on all prescription medications and adverse effects. All patient's questions were answered and pt was stable at time of discharge. Life/limb-threatening differential includes but is not limited to, acute myocardial infarction, aortic dissection, congestive heart failure, esophageal injury including rupture, surgical abdomen, arrhythmia, cardiomyopathy, myocarditis, pericarditis, peptic ulcer disease, pneumomediastinum, pneumonia, pneumothorax, pulmonary embolus, unstable angina, rib fracture, contusion, pericardial tamponade or effusion, pulmonary contusion Dragon Disclaimer: Dragon Disclaimer: This electronic medical record was generated, in whole or in part, using a voice recognition dictation system. Departure Departure: Impression: Primary Impression: Chest pain Additional Impression: Anxiety Disposition: 01 DC HOME SELF CARE/HOMELESS Condition: STABLE Referrals: JAJA TRUONG MD (PCP) Patient Instructions: Anxiety and Panic Attacks, Chest Pain (Nonspecific) Additional Instructions: EMERGENCY DEPARTMENT GENERAL DISCHARGE INSTRUCTIONS Thank you for coming to [facility] (ED) today and trusting us with you care. We trust that you had a positivie experience in our Emergency Department. If you wish to speak to the department management, you may call the director at [phone]. YOUR FOLLOW UP INSTRUCTIONS ARE FOLLOWS: 1. Do you have a private Doctor? If you do not have a private doctor, please ask for a resource list of physicians or clinics that may be able to assist you with follow up care. 2. The Emergency Physician has interpreted your x-rays. The X-Ray specialist will also review them. If there is a change in the findings, you will be notified in 48 hours when at all possible. 3. A lab test or culture has been done, your results will be reviewed and you will be notified if you need a change in treatment. ADDITIONAL INSTRUCTIONS AND INFORMATION: 1. Your care today has been supervised by a physician who is specially trained in emergency care. Many problems require more than one evaluation for a complete diagnosis and treatment. We recommend that you schedule your follow up appointment as recommended to ensure complete treatment of you illness or injury. If you are unable to obtain follow up care and continue to have a problem, or if your condition worsens, we recommend that you return to the ED. 2. We are not able to safely determine your condition over the phone nor are we able to give sound medical advice over the phone. For these safety reasons, if you call for medical advice we will ask you to come to the ED for further evaluation. 3. If you have any questions regarding these discharge instructions please call the ED at [phone]. SAFETY INFORMATION: In the interest of safety, wellness, and injury prevention; we encourage you to wear your sealbelt, if you smoke; quite smoking, and we encourage family to use a protective helmet for bicycling and other sporting events that present an increased risk for head injury. IF YOUR SYMPTOMS WORSEN OR NEW SYMPTOMS DEVELOP, OR YOU HAVE CONCERNS ABOUT YOUR CONDITION; OR IF YOUR CONDITION WORSENS WHILE YOU ARE WAITING FOR YOUR FOLLOW UP APPOINTMEN T; EITHER CONTACT YOUR PRIMARY CARE DOCTOR, THE PHYSICIAN WHOSE NAME AND NUMBER YOU WERE GIVEN, OR RETURN TO THE ED IMMEDIATELY. ATILIO BECK DO May 30, 2020 11:30
--- NOTE | 2020-05-30 11:37 | RAD ---
EXAM: XR CHEST 1V 05/30/2020 11:17 AM CLINICAL INDICATION: Eliquis COMPARISON: Chest radiograph 03/01/2020 TECHNIQUE: AP view the chest FINDINGS: The cardiomediastinal silhouette is stable. Lungs are hypoexpanded. There is no focal opaci ty, pleural effusion, or pneumothorax. There is bilateral glenohumeral and acromioclavicular osteoart hrosis. IMPRESSION: Hypoexpanded lungs. No new abnormality. Electronically signed by: Sofi Oglesby MD (05/30/2020 11:35 AM) [id number]
[2020-05-30 11:52] LABS: CALCIUM 9.8 mg/dL (8.5-10.1); CREATININE 0.9 mg/dL (0.6-1.0); GFR 74.7; POTASSIUM 3.9 mmol/L (3.5-5.1)
[2020-05-30 11:57] LABS: BASO % 0 % (0-3); EOS % 1 % (0-3); HEMATOCRIT 34.5 % (36.0-47.0); HEMOGLOBIN 10.7 g/dL (12.0-15.5); LYMPH % 14 % (24-48); MEAN CORPUSCULAR HEMOGLOBIN 27 pg (25-35); MEAN CORPUSCULAR HGB CONC 31 g/dL (31-37); MEAN CORPUSCULAR VOLUME 86 fL (79-100); MONO # 0.5 x10^3/uL (0.0-1.1); MONO % 7 % (0-9); NEUT # 5.5 x10^3uL (1.8-7.7); NEUT % 78 % (31-73); PLATELET COUNT 222 x10^3/uL (140-400); RED BLOOD COUNT 4.01 x10^6/uL (3.50-5.40); RED CELL DISTRIBUTION WIDTH 14.5 % (11.5-14.5)
[2020-05-30 12:04] LABS: ALBUMIN 3.4 g/dL (3.4-5.0); ALBUMIN/GLOBULIN RATIO 0.9 (1.0-1.7); MAGNESIUM 1.9 mg/dL (1.8-2.4); TOTAL BILIRUBIN 0.2 mg/dL (0.2-1.0); TOTAL PROTEIN 7.3 g/dL (6.4-8.2)
[2020-05-30 12:27] LABS: BACTERIA,URINE 0 /HPF (0-FEW); BILIRUBIN,URINE NEG (NEG); CLARITY,URINE HAZY; COLOR,URINE YELLOW; GLUCOSE,URINE NEG (NEG); NITRITE,URINE NEG (NEG); SQUAMOUS EPITHELIAL CELL,UR OCC /LPF; UROBILINOGEN,URINE 0.2 mg/dL (0.2 mg/dL); WBC,URINE 0 /HPF (0-4)
[2020-05-30] MEDS ORDERED: NITROGLYCERIN SUBLINGUAL 0.4 MG BOTTLE OF 25. SL PRN (13:00)
[2020-05-30] MEDS ORDERED: MORPHINE SULFATE 4 MG/ML DISP.SYRIN. IV ONE (13:45)
[2020-05-30] MEDS ORDERED: IOHEXOL 350 MG/ML 100 ML VIAL. IV ONE (13:45)
[2020-05-30] MEDS ORDERED: CONTRAST GIVEN. MC PRN (13:45)
--- NOTE | 2020-05-30 14:22 | RAD ---
Study: CT CHEST WITH CONTRAST - PULMONARY ANGIOGRAM History: Chest pain Comparison: CT chest 02/16/2020 Technique: Helical CT of the chest performed after the administration of 100 mL Omnipaque 350 intrav enous contrast and timed for angiographic evaluation of the pulmonary arteries per PE protocol. Coron al and sagittal 3D MIP reformations were obtained. One or more of the following individualized dose reduction techniques were utilized for this examinat ion: 1. Automated exposure control 2. Adjustment of the mA and/or kV according to patient size 3. Use of iterative reconstruction technique. Findings: Pulmonary Arteries: Contrast bolus is adequate. There is no acute pulmonary embolism. Heart/Systemic Vasculature: The heart is normal in size. No pericardial effusion. Thoracic aorta is n ormal in caliber. No aortic dissection. There are coronary artery and thoracic aortic calcifications Mediastinum: No mediastinal or hilar lymphadenopathy. Lungs: There is mild atelectasis in the lower lobes. No pleural effusion. The right hemidiaphragm is elevated. Neck/Axilla/Body Wall: No axillary lymphadenopathy. Chest wall is unremarkable. Upper Abdomen: Unremarkable. Bones: No acute osseous abnormality. IMPRESSION: 1. No evidence for acute pulmonary embolism. 2. Elevated right hemidiaphragm. 3. Mild bibasilar atelectasis. Electronically signed by: Sofi Oglesby MD (05/30/2020 2:20 PM) [id number]
[2020-05-30 15:06] VITALS: BP 125/45
--- NOTE | 2020-05-30 16:00 | EKG ---
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
== END 2020-05-30 15:25 | disposition home or self-care (01) ==
LOC: ER 10:49
DX: F41.9 Anxiety disorder, unspecified (principal); R07.2 Precordial pain; I11.0 Hypertensive heart disease with heart failure; I50.9 Heart failure, unspecified; J44.9 Chronic obstructive pulmonary disease, unspecified; Z88.8 Allergy status to other drugs, medicaments and biological substances
CPT/HCPCS: 36415; 71045; 71275; 80053; 81001; 82550; 83605; 83690; 83735; 83880; 84484; 85025; 85610; 85730; 87040; 93005; 96374; 99285; J2270; Q9967

== ENCOUNTER 2020-08-20 11:09 | Emergency (ER) | payer MEDICAID, MEDICARE, OTHER ==
[~2020-08-20] VITALS: Ht 152.4 cm; Wt 82.2 kg
--- NOTE | 2020-08-20 11:28 | EKG ---
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
[2020-08-20] MEDS ORDERED: LORazepam 1 MG TABLET PO ONE ×2 (12:00→18:45)
[2020-08-20 12:16] LABS: BASO % 0 % (0-3); EOS % 0 % (0-3); HEMATOCRIT 36.9 % (36.0-47.0); HEMOGLOBIN 11.9 g/dL (12.0-15.5); LYMPH # 0.8 x10^3/uL (1.0-4.8); LYMPH % 10 % (24-48); MEAN CORPUSCULAR HEMOGLOBIN 27 pg (25-35); MEAN CORPUSCULAR HGB CONC 32 g/dL (31-37); MEAN CORPUSCULAR VOLUME 84 fL (79-100); MONO # 0.5 x10^3/uL (0.0-1.1); MONO % 7 % (0-9); NEUT # 6.2 x10^3uL (1.8-7.7); NEUT % 82 % (31-73); PLATELET COUNT 328 x10^3/uL (140-400); RED CELL DISTRIBUTION WIDTH 13.2 % (11.5-14.5); WHITE BLOOD COUNT 7.6 x10^3/uL (4.0-11.0)
--- NOTE | 2020-08-20 12:20 | RAD ---
XR CHEST 1V 08/20/2020 11:57 AM INDICATION: Chest pain COMPARISON: 05/30/2020 TECHNIQUE: Portable frontal view of the chest is provided. FINDINGS: The cardiomediastinal silhouette is within normal limits. There is chronic elevation the right hemidi aphragm. There is subsegmental atelectasis at the left lung base. Faint interstitial opacity identifi ed in the right upper lobe lung minor fissure. There are no significant pleural effusions. There is no pulmonary vascular congestion. No pneumothora x. Mild to moderate glenohumeral osteoarthrosis. IMPRESSION: 1. Faint interstitial opacity along the right upper lobe abutting the minor fissure could represent a reas of infectious/inflammatory etiology. Short-term follow-up radiographs could be of benefit. 2. There is subsegmental atelectasis at the left lung base. 3. Chronic elevation right hemidiaphragm. Electronically signed by: Akiko Marley MD (08/20/2020 12:17 PM) [id number]
--- NOTE | 2020-08-20 12:31 | RAD ---
CT HEAD INDICATION: New hallucinations COMPARISON: None Available. Exposure: One or more of the following individualized dose reduction techniques were utilized for thi s examination: 1. Automated exposure control 2. Adjustment of the mA and/or kV according to patient size 3. Use of iterative reconstruction technique TECHNIQUE: 5 mm contiguous axial images were obtained from the skull base to the vertex in both bone and soft tissue algorithm. FINDINGS: Mild bilateral periventricular white matter hypodensities likely chronic small vessel ischemic diseas e. No evidence of acute intracranial hemorrhage. No extra-axial fluid collections. No mass effect or midline shift. Ventricular size is appropriate. Basal cisterns are patent. No fractures identified.Galeas-white differentiation is preserved.Globes and orbits are within normal l imits. Paranasal sinuses and mastoid air cells are clear. IMPRESSION: No acute intracranial findings. Electronically signed by: Oj Harris MD (08/20/2020 12:28 PM) [id number]
[2020-08-20 12:33] LABS: CALCIUM 9.5 mg/dL (8.5-10.1); CREATININE 0.7 mg/dL (0.6-1.0); GFR 99.8; POTASSIUM 3.5 mmol/L (3.5-5.1)
[2020-08-20 12:37] LABS: BARBITURATES NEG (NEG); BENZODIAZEPINES NEG (NEG); CANNABINOIDS NEG (NEG); COCAINE NEG (NEG); METHADONE NEG (NEG); OPIATES POS (NEG); PHENCYCLIDINE NEG (NEG)
[2020-08-20 12:53] LABS: AMPHETAMINE/METHAMPHETAMINE NEG (NEG)
[2020-08-20] MEDS ORDERED: SODIUM CHLORIDE 0.65% NASAL SPRAY 45ML BOTTLE. NS PRN (15:45)
--- NOTE | 2020-08-20 16:57 | PHYS DOC ---
Past History Past Medical History: Anxiety, Arthritis, CHF, COPD, Depression, GERD, Other Additional Past Medical Histor: BLOOD CLOTS (HARMONY LEACH MD) Past Medical History: Anxiety, Depression (PEDRO MARIE MD) Past Surgical History: Additional Past Surgical Histo: UNKNOWN SURGICAL HX (HARMONY LEACH MD) Smoking: Non-smoker Alcohol Use: None (HARMONY LEACH MD) Adult General Chief Complaint Chief Complaint: PSYCH EVALUATION [facility] HPI Patient is a 69-year-old female with past medical history of anxiety and depression who presents to the emergency room complaining of severe depression, hallucinations, hearing voices, seeing children, sleep difficulties. Patient has been having sleep difficulties for the last 3 to 4 days. They believe she slept less than an hour a night for the last 4 nights. She has recently transitioned off of hospice and she ran out of her benzodiazepines 36 hours ago. Family feels that her symptoms have gotten much worse since that time. She has been having crying fits for the last couple weeks but the have worsened in the last 36 hours and this morning she was screaming and crying and was inconsolable. She was talking about voices and the vision she was seeing. She is seeing visions previously prior to ever being on benzodiazepines. She is not feeling suicidal. She feels lonely and helpless. (HARMONY LEACH MD) Review of Systems Review of Systems Complete ROS is negative unless otherwise documented in HPI (HARMONY LEACH MD) Current Medications Current Medications Current Medications Medications (Trade) Dose Ordered Sig/Madhuri Start Time Stop Time Status Last Admin Dose Admin Lorazepam (Ativan) 0.5 mg 1X ONCE 08/20/20 12:00 08/20/20 12:12 DC 08/20/20 12:03 0.5 MG Sodium Chloride (Saline Mist Nasal) 1 morales PRN Q1HR PRN 08/20/20 15:45 (HARMONY LEACH MD) Allergies Allergies Allergies Coded Allergies Type Severity Reaction Last Updated Verified levetiracetam Adverse Reaction Intermediate Hallucinations 08/20/20 Yes (HARMONY LEACH MD) Physical Exam Physical Exam General: Awake, alert, mild distress, tearful HEENT: Atraumatic, EOMI, PERRL, airway patent, moist oral mucosa Neck: Supple, trachea midline Respiratory: CTA bilaterally, normal effort, no wheezing/crackles CV: RRR, no murmur, cap refill <2 GI: Soft, nondistended, nontender, no masses MSK: No obvious deformities Skin: Warm, dry, intact Neuro: A&O x3, speech NL, sensory and motor grossly intact, no focal deficits Psych: Anxious, tearful, flat (HARMONY LEACH MD) Current Patient Data Vital Signs Vital Signs Date Time Temp Pulse Resp B/P (MAP) Pulse Ox O2 Delivery O2 Flow Rate FiO2 08/20/20 11:18 99.3 125/45 (71) Lab Results Laboratory Tests Test 08/20/20 11:27 08/20/20 11:30 08/20/20 14:30 White Blood Count 7.6 x10^3/uL (4.0-11.0) Red Blood Count 4.40 x10^6/uL (3.50-5.40) Hemoglobin 11.9 g/dL (12.0-15.5) L Hematocrit 36.9 % (36.0-47.0) Mean Corpuscular Volume 84 fL (79-100) Mean Corpuscular Hemoglobin 27 pg (25-35) Mean Corpuscular Hemoglobin Concent 32 g/dL (31-37) Red Cell Distribution Width 13.2 % (11.5-14.5) Platelet Count 328 x10^3/uL (140-400) Neutrophils (%) (Auto) 82 % (31-73) H Lymphocytes (%) (Auto) 10 % (24-48) L Monocytes (%) (Auto) 7 % (0-9) Eosinophils (%) (Auto) 0 % (0-3) Basophils (%) (Auto) 0 % (0-3) Neutrophils # (Auto) 6.2 x10^3uL (1.8-7.7) Lymphocytes # (Auto) 0.8 x10^3/uL (1.0-4.8) L Monocytes # (Auto) 0.5 x10^3/uL (0.0-1.1) Eosinophils # (Auto) 0.0 x10^3/uL (0.0-0.7) Basophils # (Auto) 0.0 x10^3/uL (0.0-0.2) Sodium Level 142 mmol/L (136-145) Potassium Level 3.5 mmol/L (3.5-5.1) Chloride Level 100 mmol/L (98-107) Carbon Dioxide Level 33 mmol/L (21-32) H Anion Gap 9 (6-14) Blood Urea Nitrogen 13 mg/dL (7-20) Creatinine 0.7 mg/dL (0.6-1.0) Estimated GFR (Cockcroft-Gault) 99.8 Glucose Level 114 mg/dL (70-99) H Calcium Level 9.5 mg/dL (8.5-10.1) Troponin I Quantitative < 0.017 ng/mL (0-0.055) JP-Kru-V-Type Natriuretic Peptide 101 pg/mL (0-124) Ethyl Alcohol Level < 10 mg/dL (0-10) Urine Opiates Screen Pos (NEG) Urine Methadone Screen Neg (NEG) Urine Barbiturates Neg (NEG) Urine Phencyclidine Screen Neg (NEG) Urine Amphetamine/Methamphetamine Neg (NEG) Urine Benzodiazepines Screen Neg (NEG) Urine Cocaine Screen Neg (NEG) Urine Cannabinoids Screen Neg (NEG) Urine Ethyl Alcohol Neg (NEG) SARS-CoV-2 Antigen (Rapid) Negative (NEGATIVE) (HARMONY LEACH MD) EKG EKG [] (HARMONY LEACH MD) Radiology/Procedures Radiology/Procedures [] (HARMONY LEACH MD) Radiology/Procedures [address] [place] [address] IMAGING REPORT Signed PATIENT: ALIREZA PETERSON JACCOUNT: [id number] : 1950 LOCATION: ER AGE: 69 SEX: F EXAM STATUS: REG ER ORD. PHYSICIAN: HARMONY LEACH MD REASON: new hallucinations - refused to take hearing aids out PROCEDURE: CT HEAD WO CONTRAST CT HEAD INDICATION: New hallucinations COMPARISON: None Available. Exposure: One or more of the following individualized dose reduction techniques were utilized for this examination: 1. Automated exposure control 2. Adjustment of the mA and/or kV according to patient size 3. Use of iterative reconstruction technique TECHNIQUE: 5 mm contiguous axial images were obtained from the skull base to the vertex in both bone and soft tissue algorithm. FINDINGS: Mild bilateral periventricular white matter hypodensities likely chronic small vessel ischemic disease. No evidence of acute intracranial hemorrhage. No extra-axial fluid collections. No mass effect or midline shift. Ventricular size is appropriate. Basal cisterns are patent. No fractures identified.Galeas-white differentiation is preserved.Globes and orbits are within normal limits. Paranasal sinuses and mastoid air cells are clear. IMPRESSION: No acute intracranial findings. Electronically signed by: Oj Harris MD (08/20/2020 12:28 PM) [id number] DICTATED AND SIGNED BY: OJ HARRIS MD DATE: 08/20/20 1223 CC: HARMONY LEACH MD; JOYA MURRAY MD ~MTH0 IMAGING REPORT Signed PATIENT: ALIREZA PETERSON JACCOUNT: [id number] : 1950 LOCATION: ER AGE: 69 SEX: F EXAM STATUS: REG ER ORD. PHYSICIAN: HARMONY LEACH MD REASON: chest pain PROCEDURE: CHEST AP ONLY XR CHEST 1V 08/20/2020 11:57 AM INDICATION: Chest pain COMPARISON: 05/30/2020 TECHNIQUE: Portable frontal view of the chest is provided. FINDINGS: The cardiomediastinal silhouette is within normal limits. There is chronic elevation the right hemidiaphragm. There is subsegmental atelectasis at the left lung base. Faint interstitial opacity identified in the right upper lobe lung minor fissure. There are no significant pleural effusions. There is no pulmonary vascular congestion. No pneumothorax. Mild to moderate glenohumeral osteoarthrosis. IMPRESSION: 1. Faint interstitial opacity along the right upper lobe abutting the minor fissure could represent areas of infectious/inflammatory etiology. Short-term follow-up radiographs could be of benefit. 2. There is subsegmental atelectasis at the left lung base. 3. Chronic elevation right hemidiaphragm. Electronically signed by: Yina Thomason MD (08/20/2020 12:17 PM) [id number] DICTATED AND SIGNED BY: YINA THOMASON MD DATE: 08/20/20 1215 CC: HARMONY LEACH MD; JOYA MURRAY MD ~MTH0 0 (PEDRO MARIE MD) Heart Score Risk Factors: Risk Factors: DM, Current or recent (<one month) smoker, HTN, HLP, family history of CAD, obesity. Risk Scores: Risk Factors: DM, Current or recent (<one month) smoker, HTN, HLP, family history of CAD, obesity. (HARMONY LEACH MD) Course & Med Decision Making Course & Med Decision Making Pertinent Labs and Imaging studies reviewed. (See chart for details) Patient is a 69-year-old with a history of depression who presents [facility] with hallucinations, crying spells, sleep deprivation. Upon arrival the the Emergency Room, patient was changed into a gown and personal belongings were taken to security for safety. Patient was placed on a one-on-one. Lab work was ordered if requested by psychiatric team. PAT team was consulted for evaluation. There does appear to be a benzodiazepine withdrawal component but this does not appear to be the main issue as symptoms started prior to running out of her medications. I discussed with family that it is not safe to abruptly stop these medications and she will need to be weaned off of them. After discussion with PAT team the decision was made to pursue inpatient care. Patient is awaiting a Covid PCR test. Patient discussed with Dr. Marie who will assume care. (HARMONY LEACH MD) Course & Med Decision Making See Dr. Leach chart for details. Lab. - COVID rapid negative. Now waiting of PCR test. 2130 hrs. Pt. had uneventful night. Awaiting PCR on COVID at shift change. Endorsed to Dr. Jacobson at shift change. Impression: 1. Depression 2. Anxiety 3. Hallucinations and Delusions 4. Insomnia (PEDRO MARIE MD) Course & Med Decision Making Accepted patient care at shift change, pending PAT reevaluation. After friend evaluated patient she does not meet inpatient criteria, patient is anxious because she has been discontinued from her Ativan.. Juan from PAT spoke with patient's primary care provider who agreed to call in a prescription of Ativan and taper her down. (DONELL JACOBSON MD) Dragon Disclaimer Dragon Disclaimer This electronic medical record was generated, in whole or in part, using a voice recognition dictation system. (HARMONY LEACH MD) Departure Departure: Impression: Primary Impression: Hallucination Additional Impression: Depression Disposition: 01 DC HOME SELF CARE/HOMELESS Condition: STABLE Referrals: JOYA MURRAY MD (PCP) Patient Instructions: Depression, Adult Dragon Disclaimer This chart was dictated in whole or in part using Voice Recognition software in a busy, high-work load, and often noisy Emergency Department environment. It may contain unintended and wholly unrecognized errors or omissions. (PEDRO MARIE MD) Problem Qualifiers HARMONY LEACH MD Aug 20, 2020 16:57 PEDRO MARIE MD Aug 20, 2020 20:50 DONELL JACOBSON MD Aug 21, 2020 10:39
[2020-08-20] MEDS ORDERED: SUCRALFATE 1 GM TABLET. PO ONE (19:45)
[2020-08-20] MEDS ORDERED: HYDROcodone/APAP 10/325 1 TAB TABLET PO ONE (19:45)
[2020-08-20] MEDS: APIXABAN 5 MG TABLET. PO SCH (20:10)
[2020-08-21] MEDS ORDERED: SUCRALFATE 1 GM TABLET. PO ONE (01:17)
[2020-08-21] MEDS ORDERED: oxyCODONE/APAP 5/325 1 TAB TABLET PO ONE (02:15)
[2020-08-21 03:15] LABS: BILIRUBIN,URINE SMALL (NEG); CLARITY,URINE CLEAR; COLOR,URINE YELLOW; GLUCOSE,URINE NEG (NEG); NITRITE,URINE NEG (NEG); UROBILINOGEN,URINE 0.2 mg/dL (0.2 mg/dL)
[2020-08-21 03:28] LABS: BACTERIA,URINE 0 /HPF (0-FEW); RBC,URINE OCC /HPF (0-2); SQUAMOUS EPITHELIAL CELL,UR MANY /LPF; WBC,URINE OCC /HPF (0-4)
[2020-08-21] MEDS: DICLOFENAC SODIUM 1% TOPICAL GEL 100GM TUBE. TP SCH ×2 (06:04→09:27)
[2020-08-21 08:10] VITALS: BP 145/98
[2020-08-21] MEDS ORDERED: DOCUSATE SODIUM 100 MG CAPSULE PO ONE (08:15)
[2020-08-21] MEDS ORDERED: DICLOFENAC SODIUM 1% TOPICAL GEL 100GM TUBE. TP SCH (09:00)
[2020-08-21] MEDS: APIXABAN 5 MG TABLET. PO SCH (09:09)
[2020-08-21] MEDS ORDERED: LORazepam 1 MG TABLET PO ONE (10:30)
== END 2020-08-21 11:19 | disposition home or self-care (01) ==
LOC: ER 11:09
DX: R44.3 Hallucinations, unspecified (principal); Z20.822 Contact with and (suspected) exposure to COVID-19; F32.9 Major depressive disorder, single episode, unspecified; F41.9 Anxiety disorder, unspecified; G47.00 Insomnia, unspecified; K21.9 Gastro-esophageal reflux disease without esophagitis; J44.9 Chronic obstructive pulmonary disease, unspecified; Z86.79 Personal history of other diseases of the circulatory system; Z79.899 Other long term (current) drug therapy
CPT/HCPCS: 36415; 70450; 71045; 80048; 80307; 81001; 83880; 84484; 85025; 87426; 93005; 99285; G0480; U0003

== ENCOUNTER 2020-08-31 16:27 | Emergency (ER) | payer OTHER ==
[~2020-08-31] VITALS: Ht 152.4 cm; Wt 82.2 kg
[2020-08-31 16:30] VITALS: BP 145/98
--- NOTE | 2020-08-31 16:46 | PHYS DOC ---
Past History Past Medical History: Anxiety, Depression Additional Past Medical Histor: BLOOD CLOTS Past Surgical History: Additional Past Surgical Histo: UNKNOWN SURGICAL HX Smoking: Non-smoker Alcohol Use: None Adult General Chief Complaint Chief Complaint: ANXIETY/PANIC ATTACK HPI HPI Patient is a 69yo femalre presenting via EMS for panic attack. She was seen at our facility recently and had extensive workup performed and PAT evaluation that was grossly non-concerning and discharged back home to son and eqldskui-qk-nsu whom she lives with. Patient has known anxiety and recently came off hospice care. She established with local PCP who appropriately evaluated patient's medications and took her off several high-risk medications that included her "sleeping pill" and benzodiazepines triggering patient to have frequent panic attacks. At last ED visit, the conclusion was that PCP restarted patient's daily Ativan 0.5mg BID. Today, patient reports being anxious at home and "freaking out" because "I'm not getting any of my normal meds". This prompted and anxiety attack and so, jmdsuhgp-ds-eyc gave 0.5mg Ativan without resolution so EMS was called for transport to our facility for evaluation. On arrival, patient hysterical and requesting to be put back on her previous medications and wanting something for sleep. States she has appointment to establish care at [facility] in September but can't wait till then. Denies HI/SI Review of Systems Review of Systems Fourteen body systems of review of systems have been reviewed. See HPI for pertinent positives and negative responses, other kruger all other systems are negative, non-pertinent or non-contributory Allergies Allergies Allergies Coded Allergies Type Severity Reaction Last Updated Verified levetiracetam Adverse Reaction Intermediate Hallucinations 08/20/20 Yes Physical Exam Physical Exam Constitutional: Well developed, well nourished, no acute distress, non-toxic appearance. [] HENT: Normocephalic, atraumatic, bilateral external ears normal, oropharynx moist, no oral exudates, nose normal. [] Eyes: PERRLA, EOMI, conjunctiva normal, no discharge. [] Neck: Normal range of motion, no tenderness, supple, no stridor. [] Cardiovascular:Heart rate regular rhythm, no murmur [] Lungs & Thorax: Bilateral breath sounds clear to auscultation [] Abdomen: Bowel sounds normal, soft, no tenderness, no masses, no pulsatile masses. [] Skin: Warm, dry, no erythema, no rash. [] Back: No tenderness, no CVA tenderness. [] Extremities: No tenderness, no cyanosis, no clubbing, ROM intact, no edema. [] Neurologic: Alert and oriented X 3, normal motor function, normal sensory function, no focal deficits noted. [] Psychologic: Anxious mood and affect Current Patient Data Vital Signs Vital Signs Date Time Temp Pulse Resp B/P (MAP) Pulse Ox O2 Delivery O2 Flow Rate FiO2 08/31/20 16:30 97.5 75 20 145/98 (114) 95 Room Air Vital Signs Date Time Temp Pulse Resp B/P (MAP) Pulse Ox O2 Delivery O2 Flow Rate FiO2 08/31/20 16:30 97.5 75 20 145/98 (114) 95 Room Air EKG EKG EKG ordered and interpreted by myself at 1746 hrs. as sinus rhythm at 75 bpm, unremarkable intervals, left axis deviation, no acute ischemic findings, no STEMI Radiology/Procedures Radiology/Procedures [] Heart Score C/O Chest Pain: No Risk Factors: Risk Factors: DM, Current or recent (<one month) smoker, HTN, HLP, family history of CAD, obesity. Risk Scores: Risk Factors: DM, Current or recent (<one month) smoker, HTN, HLP, family history of CAD, obesity. Course & Med Decision Making Course & Med Decision Making Hemodynamically stable patient with non-concerning history and physical exam ER workup performed after reviewing comprehensive workup performed at our facility within past 10 days. Patient's mood and affect improved after I educated her that she had been receiving her previous dose of Ativan. She was unaware of this as her ewokgend-go-mgp handles her medications I also educated patient that she could be seen at the Crisis Center walk-in hours at the [facility] center as early as tomorrow 0900 for evaluation I contacted patient's oudvengf-ea-ooy and case reviewed. We reviewed recent comprehensive workup at our facility. Patient does not meet inpatient psych criteria at this time, no HI/SI. Al anxiety/panic attacks stem from fear of not receiving her Ativan/other addictive medications. Patient appears to be addicted to taking medications as means to mask loneliness, trouble sleeping etc, patient's drjavpbj-ks-mcm agrees Prior safety plan reviewed. Patient to return home with son and mzishkjs-bi-suf with close monitoring overnight, reassurance she is on old med regiment and to proceed for evaluation at crisis center tomorrow at 0900 Strict return precautions were discussed with good understanding by patient and daughter in law, all questions and concerns addressed prior to departure Raissa Disclaimer Raissa Disclaimer This electronic medical record was generated, in whole or in part, using a voice recognition dictation system. Departure Departure: Impression: Primary Impression: Panic attack Additional Impression: Anxiety Disposition: 01 DC HOME SELF CARE/HOMELESS Condition: GOOD Referrals: JOYA MURRAY MD (PCP) Patient Instructions: Anxiety and Panic Attacks Additional Instructions: You were seen in the ED for evaluation of anxiety. Anxiety is a serious medical condition with unfortunate effects on daily living. As discussed, regardless of your current insurance status you are able to walk into the local guidance Center in [facility] for evaluation between the hours of 9 AM to 5 PM. I advise you to continue taking all current home medications as scheduled and proceed to the guidance Center for evaluation tomorrow at 9 AM. If any concerning signs or symptoms present prior to then, please do not hesitate to come back for repeat evaluation. It was a pleasure to take care of you and I wish you the best going forward Problem Qualifiers RONEL BEARDEN DO Aug 31, 2020 16:46
== END 2020-08-31 18:57 | disposition home or self-care (01) ==
LOC: ER 16:27
DX: F41.0 Panic disorder [episodic paroxysmal anxiety] (principal); F32.9 Major depressive disorder, single episode, unspecified; Z88.8 Allergy status to other drugs, medicaments and biological substances
CPT/HCPCS: 99283

== ENCOUNTER 2020-09-22 11:18 | Emergency (ER) | payer OTHER ==
[~2020-09-22] VITALS: Ht 152.4 cm; Wt 82.2 kg
--- NOTE | 2020-09-22 13:34 | PHYS DOC ---
Past History Past Medical History: Anxiety, COPD, Depression Additional Past Medical Histor: BLOOD CLOTS Past Surgical History: Additional Past Surgical Histo: UNKNOWN SURGICAL HX Smoking: Non-smoker Alcohol Use: None Adult General Chief Complaint Chief Complaint: BLOODY STOOL HPI HPI Patient is a 69-year-old female presents to the emergency department complaining of bright red blood in her stool each time she defecates for the past week or so. Patient states she is on the blood thinner Eliquis for a pulmonary embolus in her left lung from a year ago. Patient states she has a history of internal hemorrhoids and has had bleeding problems in the past. Patient denies abdominal pain, nausea, vomiting, diarrhea. Patient states she has had constipation problems for many years and takes a Dulcolax stool softener at home. Patient denies any chest pains, dizziness, visual changes, numbness or tingling to her extremities. Patient denies any other physical complaints or physical concerns. Patient fears that she may be anemic and wants an evaluation of her blood levels today. Review of Systems Review of Systems 14 body systems of review of systems have been reviewed. See HPI for pertinent positives and negative responses, otherwise all other systems are negative, nonpertinent or noncontributory. Allergies Allergies Allergies Coded Allergies Type Severity Reaction Last Updated Verified levetiracetam Adverse Reaction Intermediate Hallucinations 08/20/20 Yes Physical Exam Physical Exam Constitutional: Well developed, well nourished, no acute distress, non-toxic appearance. HENT: Normocephalic, atraumatic, bilateral external ears normal, oropharynx moist, no oral exudates, nose normal. Oropharynx moist, pink, patient has d entures placed. No signs of infectious process appreciated, no drooling, no trismus. Eyes: PERRLA, EOMI, conjunctiva normal, no discharge. Neck: Normal range of motion, no tenderness, supple, no stridor. Cardiovascular:Heart rate regular rhythm, no murmur, heart sounds S1-S2 to auscultation. Lungs & Thorax: Bilateral breath sounds clear to auscultation all lung cooper, no adventitious lung sounds appreciated. Abdomen: Bowel sounds normal, soft, no tenderness, no masses, no pulsatile masses. Skin: Warm, dry, no erythema, no rash. Back: No tenderness, no CVA tenderness. Extremities: No tenderness, no cyanosis, no clubbing, ROM intact, no edema. Neurologic: Alert and oriented X 3, normal motor function, normal sensory function, no focal deficits noted. Psychologic: Affect normal, judgement normal, mood normal. Current Patient Data Vital Signs Vital Signs Date Time Temp Pulse Resp B/P (MAP) Pulse Ox O2 Delivery O2 Flow Rate FiO2 09/22/20 11:58 97.8 89 16 137/80 (99) 98 Nasal Cannula 3.0 Lab Results Laboratory Tests Test 09/22/20 13:37 09/22/20 14:40 White Blood Count 5.3 x10^3/uL Red Blood Count 4.11 x10^6/uL Hemoglobin 11.0 g/dL Hematocrit 34.5 % Mean Corpuscular Volume 84 fL Mean Corpuscular Hemoglobin 27 pg Mean Corpuscular Hemoglobin Concent 32 g/dL Red Cell Distribution Width 14.0 % Platelet Count 257 x10^3/uL Neutrophils (%) (Auto) 61 % Lymphocytes (%) (Auto) 26 % Monocytes (%) (Auto) 8 % Eosinophils (%) (Auto) 3 % Basophils (%) (Auto) 1 % Neutrophils # (Auto) 3.2 x10^3uL Lymphocytes # (Auto) 1.4 x10^3/uL Monocytes # (Auto) 0.4 x10^3/uL Eosinophils # (Auto) 0.2 x10^3/uL Basophils # (Auto) 0.1 x10^3/uL Prothrombin Time 10.4 SEC Prothromb Time International Ratio 1.0 Activated Partial Thromboplast Time 25 SEC Sodium Level 144 mmol/L Potassium Level 4.5 mmol/L Chloride Level 106 mmol/L Carbon Dioxide Level 34 mmol/L Anion Gap 4 Blood Urea Nitrogen 22 mg/dL Creatinine 0.8 mg/dL Estimated GFR (Cockcroft-Gault) 85.6 BUN/Creatinine Ratio 28 Glucose Level 92 mg/dL Calcium Level 8.9 mg/dL Total Bilirubin 0.2 mg/dL Aspartate Amino Transf (AST/SGOT) 18 U/L Alanine Aminotransferase (ALT/SGPT) 27 U/L Alkaline Phosphatase 86 U/L Total Protein 6.6 g/dL Albumin 3.5 g/dL Albumin/Globulin Ratio 1.1 Stool Occult Blood Positive EKG EKG [] Radiology/Procedures Radiology/Procedures [] Heart Score C/O Chest Pain: No Risk Factors: Risk Factors: DM, Current or recent (<one month) smoker, HTN, HLP, family history of CAD, obesity. Risk Scores: Risk Factors: DM, Current or recent (<one month) smoker, HTN, HLP, family history of CAD, obesity. Course & Med Decision Making Course & Med Decision Making Pertinent Labs and Imaging studies reviewed. (See chart for details) 69-year-old female, vital signs reviewed, presents to the emergency department concerning bright red blood in her stool. Physical examination was unremarkable. The patient was not tachycardic, the patient had no abdominal p ain. Will order CBC, CMP, Hemoccult stool. Patient Hemoccult stool positive, CBC and CMP results equivocal, the patient is not anemic. Discussed findings with patient, recommended patient see her primary care Dr. Murray tomorrow and discuss her Eliquis dosing. Patient states she has an appointment Monday. Discussed with patient starting MiraLAX to control stool consistency related to patient's long history of constipation and straining. Patient agrees blood in stool is most likely from her internal hemorrhoids and straining when defecation. Discussed with patient follow-up with surgeon regarding internal hemorrhoids. Patient states she has seen a surgeon in the past and surgery was not recommended related to problems with anesthesia. Patient gave verbal understanding of discharge home instructions, MiraLAX use, strict follow-up with Dr. Murray this coming Monday, return to ER precautions and concerns, patient was discharged home without incident. Dragon Disclaimer Dragon Disclaimer This electronic medical record was generated, in whole or in part, using a voice recognition dictation system. Departure Departure: Impression: Primary Impression: Blood in stool Additional Impressions: Constipation Internal hemorrhoids Disposition: 01 DC HOME SELF CARE/HOMELESS Condition: GOOD Referrals: JOYA MURRAY MD (PCP) Patient Instructions: Constipation, Adult, Hemorrhoids Additional Instructions: Please start MiraLAX [id number] as we discussed twice a day, you may increase to 3 times a day or 4 times a day as needed for stool consistency. Please keep your appointment with Dr. Murray this coming Monday. Discussed with Dr. Murray your bleeding problems, and Eliquis dosing. Please return to the emergency department for worsening symptoms or other concerns. EMERGENCY DEPARTMENT GENERAL DISCHARGE INSTRUCTIONS Thank you for coming to [facility] (ED) today and trusting us with you care. We trust that you had a positivie experience in our Emergency Department. If you wish to speak to the department management, you may call the director at [phone]. YOUR FOLLOW UP INSTRUCTIONS ARE FOLLOWS: 1. Do you have a private Doctor? If you do not have a private doctor, please ask for a resource list of physicians or clinics that may be able to assist you with follow up care. 2. The Emergency Physician has interpreted your x-rays. The X-Ray specialist will also review them. If there is a change in the findings, you will be notified in 48 hours when at all possible. 3. A lab test or culture has been done, your results will be reviewed and you will be notified if you need a change in treatment. ADDITIONAL INSTRUCTIONS AND INFORMATION: 1. Your care today has been supervised by a physician who is specially trained in emergency care. Many problems require more than one evaluation for a complete diagnosis and treatment. We recommend that you schedule your follow up appointment as recommended to ensure complete treatment of you illness or injury. If you are unable to obtain follow up care and continue to have a problem, or if your condition worsens, we recommend that you return to the ED. 2. We are not able to safely determine your condition over the phone nor are we able to give sound medical advice over the phone. For these safety reasons, if you call for medical advice we will ask you to come to the ED for further evaluation. 3. If you have any questions regarding these discharge instructions please call the ED at [phone]. SAFETY INFORMATION: In the interest of safety, wellness, and injury prevention; we encourage you to wear your sealbelt, if you smoke; quite smoking, and we encourage family to use a protective helmet for bicycling and other sporting events that present an increased risk for head injury. IF YOUR SYMPTOMS WORSEN OR NEW SYMPTOMS DEVELOP, OR YOU HAVE CONCERNS ABOUT YOUR CONDITION; OR IF YOUR CONDITION WORSENS WHILE YOU ARE WAITING FOR YOUR FOLLOW UP APPOINTMENT; EITHER CONTACT YOUR PRIMARY CARE DOCTOR, THE PHYSICIAN WHOSE NAME AND NUMBER YOU WERE GIVEN, OR RETURN TO THE ED IMMEDIATELY. Problem Qualifiers Additional Impressions: Constipation Constipation type: unspecified constipation type Qualified Codes: K59.00 - Constipation, unspecified MERARY CHOWDARY [employer] MIXER Sep 22, 2020 13:34
[2020-09-22 14:18] LABS: BASO # 0.1 x10^3/uL (0.0-0.2); BASO % 1 % (0-3); EOS # 0.2 x10^3/uL (0.0-0.7); EOS % 3 % (0-3); HEMATOCRIT 34.5 % (36.0-47.0); LYMPH # 1.4 x10^3/uL (1.0-4.8); LYMPH % 26 % (24-48); MEAN CORPUSCULAR HEMOGLOBIN 27 pg (25-35); MEAN CORPUSCULAR HGB CONC 32 g/dL (31-37); MEAN CORPUSCULAR VOLUME 84 fL (79-100); MONO # 0.4 x10^3/uL (0.0-1.1); MONO % 8 % (0-9); NEUT # 3.2 x10^3uL (1.8-7.7); NEUT % 61 % (31-73); PLATELET COUNT 257 x10^3/uL (140-400); RED BLOOD COUNT 4.11 x10^6/uL (3.50-5.40); WHITE BLOOD COUNT 5.3 x10^3/uL (4.0-11.0)
[2020-09-22 14:43] LABS: CALCIUM 8.9 mg/dL (8.5-10.1); CREATININE 0.8 mg/dL (0.6-1.0); GFR 85.6; POTASSIUM 4.5 mmol/L (3.5-5.1)
[2020-09-22 14:49] LABS: ALBUMIN 3.5 g/dL (3.4-5.0); ALBUMIN/GLOBULIN RATIO 1.1 (1.0-1.7); TOTAL BILIRUBIN 0.2 mg/dL (0.2-1.0); TOTAL PROTEIN 6.6 g/dL (6.4-8.2)
[2020-09-22 14:59] LABS: FECAL OB PT POSITIVE (NEG)
[2020-09-22 16:33] VITALS: BP 121/75
== END 2020-09-22 16:12 | disposition home or self-care (01) ==
LOC: ER 11:18
DX: K64.8 Other hemorrhoids (principal); K59.00 Constipation, unspecified; J44.9 Chronic obstructive pulmonary disease, unspecified; Z88.8 Allergy status to other drugs, medicaments and biological substances
CPT/HCPCS: 36415; 80053; 82274; 85025; 85610; 85730; 99283

== ENCOUNTER → 2020-10-19 | Outpatient (CLI) | payer OTHER ==
[2020-09-22 16:33] VITALS: BP 121/75
--- NOTE | 2020-10-20 08:25 | RAD ---
EXAM: AP, lateral and lumbosacral spot views of the lumbar spine DATE: 10/19/2020 12:01 PM INDICATION: Reason: KNEE AND BACK PAIN, ARTHRITIS / Spl. Instructions: / History: COMPARISON: No Prior FINDINGS: 5 nonrib-bearing lumbar-type vertebral bodies. There is moderate height loss of the L1 vertebral body . Trace height loss of the L2 vertebral body moderate height loss of the L4 and L5 vertebral bodies. These are all age-indeterminate no spondylolisthesis. Multilevel facet degenerative changes are seen. SI joint degenerative changes are seen. Widening of the symphysis pubis possibly physiologic althoug h may be related to trauma. IMPRESSION: 1. Height loss of multiple vertebral bodies, age-indeterminate, possibly acute or chronic. This can be further assessed with MRI. 2. Multilevel degenerative changes. 3. Incidentally noted widening of the symphysis pubis, possibly physiologic or may be related to magdalena or trauma. If this corresponds to patient's symptoms as can also be further assessed by MRI. Electronically signed by: Delio Diaz MD (10/20/2020 8:23 AM) [id number]
--- NOTE | 2020-10-20 08:27 | RAD ---
EXAM: AP, lateral views of both knees DATE: 10/19/2020 12:01 PM INDICATION: Reason: KNEE AND BACK PAIN, ARTHRITIS / Spl. Instructions: / History: . COMPARISON: No Prior FINDINGS: Right knee: Moderate medial compartment joint space narrowing with tricompartmental osteophytes. Smal l right knee joint effusion. Patellar enthesopathy. Decreased bone mineral density. No acute fracture or dislocation. Left knee: Moderate medial joint space narrowing with tricompartmental osteophytes. Patellar enthesop athy. Small knee joint effusion. Decreased bone mineral density. No acute fracture or dislocation. IMPRESSION: 1. Severe bilateral knee joint osteoarthritis, medial compartment predominance. 2. Within the constraints of osteopenia, no evidence for acute fracture or dislocation. 3. Small knee joint effusion bilaterally. Electronically signed by: Delio Diaz MD (10/20/2020 8:25 AM) [id number]
== END ==
LOC: DXRAD 11:43
PROVIDERS: ATTEND Family Medicine
DX: M17.11 Unilateral primary osteoarthritis, right knee (principal); M25.461 Effusion, right knee; M85.88 Other specified disorders of bone density and structure, other site; M47.816 Spondylosis without myelopathy or radiculopathy, lumbar region
CPT/HCPCS: 72100; 73560

== ENCOUNTER 2020-10-22 15:12 | Emergency (ER) | payer OTHER ==
[~2020-10-22] VITALS: Ht 152.4 cm; Wt 81.0 kg
[2020-10-22] MEDS ORDERED: CONTRAST GIVEN. MC PRN (16:00)
[2020-10-22] MEDS ORDERED: IOHEXOL 350 MG/ML 100 ML VIAL. IV ONE (16:00)
[2020-10-22 16:15] LABS: BILIRUBIN,URINE NEG (NEG); CLARITY,URINE CLEAR; COLOR,URINE YELLOW; GLUCOSE,URINE NEG (NEG)
[2020-10-22 16:16] LABS: BACTERIA,URINE 0 /HPF (0-FEW); NITRITE,URINE NEG (NEG); SQUAMOUS EPITHELIAL CELL,UR MOD /LPF; UROBILINOGEN,URINE 0.2 mg/dL (0.2 mg/dL); WBC,URINE 0 /HPF (0-4)
--- NOTE | 2020-10-22 16:17 | PHYS DOC ---
Past History Past Medical History: Anxiety, Arthritis, CHF, COPD, Depression, GERD, Hypertension, TIA Additional Past Medical Histor: BLOOD CLOTS (MERARY NAVARRO DO) Past Surgical History: Additional Past Surgical Histo: ORIF left wrist (MERARY NAVARRO DO) Smoking: Non-smoker Alcohol Use: None Drug Use: None (MERARY NAVARRO DO) General Adult EDM: Chief Complaint: SHORTNESS OF BREATH HPI: HPI: 69-year-old female presents with 2-week history of progressive shortness of b reath. Patient does report a "harsh, dry" cough. Patient also reports some intermittent chest discomfort. Denies leg swelling or calf tenderness. Denies fever or chills. Denies known exposure for COVID-19. Patient recently reduced on her Eliquis for her PE. Patient does report compliance with her medications. (MERARY NAVARRO DO) Review of Systems: Review of Systems: Constitutional: Denies fever or chills Eyes: Denies redness or eye pain HENT: Denies nasal congestion or sore throat Respiratory: Reports nonproductive cough and shortness of breath Cardiovascular: Reports chest pain; denies palpitations GI: Denies abdominal pain, nausea, or vomiting : Denies dysuria or hematuria Musculoskeletal: Denies back pain or joint pain Integument: Denies rash or skin lesions Neurologic: Denies headache, focal weakness or sensory changes Complete systems were reviewed and found to be within normal limits, except as documented in this note. (MERARY NAVARRO DO) Current Medications: Current Meds: Current Medications Medications (Trade) Dose Ordered Sig/Madhuri Start Time Stop Time Status Last Admin Dose Admin Info (Do NOT chart on this entry -- for MONITORING) 1 each PRN DAILY PRN 10/22/20 16:00 10/24/20 15:59 Iohexol (Omnipaque 350 Mg/ml) 100 ml 1X ONCE 10/22/20 16:00 10/22/20 16:01 DC 10/22/20 16:10 100 ML (MERARY NAVARRO DO) Allergies: Allergies: Allergies Coded Allergies Type Severity Reaction Last Updated Verified levetiracetam Adverse Reaction Intermediate Hallucinations 10/22/20 Yes (MERARY NAVARRO DO) Physical Exam: PE: Constitutional: Well developed, well nourished, no acute distress, non-toxic appearance HENT: Normocephalic, atraumatic Eyes: Conjunctiva normal, no discharge Neck: Normal range of motion, supple Lungs & Thorax: No respiratory distress, equal chest rise and fall, mild expiratory wheeze noted bilaterally Abdomen: Soft, no tenderness Skin: Warm, dry, no erythema, no rash Extremities: No tenderness, ROM intact, mild BLE edema Neurologic: Alert and oriented X 3, no focal deficits noted Psychologic: Affect normal, judgment normal (MERARY NAVARRO DO) Current Patient Data: Vital Signs: Vital Signs Date Time Temp Pulse Resp B/P (MAP) Pulse Ox O2 Delivery O2 Flow Rate FiO2 10/22/20 15:30 98.4 80 18 121/61 (81) 100 Nasal Cannula 2.0 (MERARY NAVARRO DO) EKG: EKG: @1625 NSR at 79bpm, NO ST elevation, QRS 82ms, QT/QTc 376/437ms (MERARY NAVARRO DO) Radiology/Procedures: Radiology/Procedures: PROCEDURE: CT ANGIOGRAPHY CHEST Study: CT CHEST WITH CONTRAST - PULMONARY ANGIOGRAM History: Shortness of air. Cough. Pulmonary embolism. Comparison: 05/30/2020 Technique: Helical CT of the chest performed after the administration of 100 cc intravenous contrast and timed for angiographic evaluation of the pulmonary arteries per PE protocol. Coronal and sagittal 3D MIP reformations were obtained. One or more of the following individualized dose reduction techniques were utilized for this examination: 1. Automated exposure control 2. Adjustment of the mA and/or kV according to patient size 3. Use of iterative reconstruction technique. Findings: Pulmonary Arteries: Limited study for the detection of pulmonary emboli due to a combination of bolus timing, respiratory motion and patient body habitus. Much of the segmental/subsegmental arteries are incompletely assessed, particularly at the lower lungs. No saddle, main or lobar pulmonary embolism is identified. Main pulmonary artery caliber is within normal limits. Heart/Systemic Vasculature: No aortic dissection or aneurysm. Multifocal calcifi ed and noncalcified atheromatous plaque to include coronary artery involvement. Estimated 30 percent stenosis at the proximal left subclavian artery is unchanged. Mediastinum: No adenopathy or pericardial effusion. Small hiatal hernia. Lungs: Basilar predominant volume loss. Asymmetric elevation of the right hemidiaphragm. No lobar consolidation. The central airways are patent. No pleural effusion or pneumothorax. Neck/Axilla/Body Wall: No interval change. Upper Abdomen: Right renal cyst. Bones: Advanced arthrosis of both shoulders. Chronic L1 compression deformity also seen on the 10/19/2020 lumbar spine radiographs. Multilevel spondylosis. Broad thoracic dextrocurvature. Miscellaneous: None. IMPRESSION: 1. Incomplete assessment of the peripheral pulmonary arteries particularly at the lower lungs due to a combination of respiratory motion, bolus timing and patient body habitus. Taking this into consideration no pulmonary embolism is identified. 2. Redemonstrated asymmetric elevation of the right hemidiaphragm. Bibasilar volume loss. Additional chronic observations outlined in the body the report. Electronically signed by: MAURISIO CHAVARRIA MD (10/22/2020 4:56 PM) [facility] (MERARY NAVARRO DO) Heart Score: C/O Chest Pain: Yes HEART Score for Chest Pain: HEART Score for Chest Pain Response (Comments) Value History Slighlty/Non-Suspicious 0 ECG Normal 0 Age > 65 2 Risk Factors 1 or 2 Risk Factors 1 Troponin < Normal Limit 0 Total 3 Risk Factors: Risk Factors: DM, Current or recent (<one month) smoker, HTN, HLP, family history of CAD, obesity. Risk Scores: Score 0 - 3: 2.5% MACE over next 6 weeks - Discharge Home Score 4 - 6: 20.3% MACE over next 6 weeks - Admit for Clinical Observation Score 7 - 10: 72.7% MACE over next 6 weeks - Early Invasive Strategies (MERARY NAVARRO DO) Course & Med Decision Making: Course & Med Decision Making Pertinent Labs and Imaging studies reviewed. (See chart for details) Patient presents with 2-week history of progressive shortness of air with some intermittent chest discomfort. Patient reports a "harsh, dry" cough. EKG stable. Labs obtained and posted to chart. WBC WNL. Anemia appears baseline per [employer] review. Initial troponin WNL. BNP normal. Cannot exclude COVID-19. COVID testing pending. CTA chest obtained given history of PE. CT suboptimal but without central PE or signs of infectious process. HEART score 3. Symptoms more likely COPD exacerbation. Patient offered admission and declined. Repeat troponin ordered. IF negative patient planned for discharge home with close follow up with PCP/ Pulmonology. Rx for steroid burst therapy provided. Initial dose provided in department. Sign out given to Dr. Marie for follow up regarding repeat troponin. Discharge paperwork printed by myself in anticipation of negative troponin. Discussed findings and plan with patient, who acknowledges understanding and agreement. COVID-19 CRITERIA: The patient was evaluated during the global COVID-19 pandemic, and that diagnosis was suspected/considered upon their initial presentation. Their evaluation, treatment and testing was consistent with current guidelines for patients who present with complaints or symptoms that may be related to COVID-19. (MERARY NAVARRO DO) Course & Med Decision Making See Dr. Navarro chart for detatils. 2nd Trop normal range. Pt. follow up with primary. Take Prednisone as directed. Return if any concerns. Impression: 1. COPD excacerbation (PEDRO MARIE MD) Dragon Disclaimer: Dragon Disclaimer: This electronic medical record was generated, in whole or in part, using a voice recognition dictation system. (MERARY NAVARRO DO) Departure Departure: Impression: Primary Impression: COPD exacerbation Additional Impression: Suspected 2019 novel coronavirus infection Disposition: HOME / SELF CARE / HOMELESS Condition: STABLE Referrals: JOYA MURRAY MD (PCP) ERVIN SANCHEZ MD Patient Instructions: Chronic Obstructive Pulmonary Disease Exacerbation, [id number] Additional Instructions: You have been tested for or diagnosed with COVID-19. It is an infection caused by a new type of coronavirus. COVID-19 will cause cold-like or mild flu symptoms in most. It can cause more severe symptoms like problems breathing in some. There is no treatment for COVID-19. The body will clear the infection over time. Self-care will help to ease discomfort. Steps to Take: Self-Care Rest as needed. Healthy habits may help you feel better. Steps include: Choose healthy foods including fruits and vegetables. Drink water throughout the day. Get plenty of sleep each night. If you smoke, try to quit. It may ease breathing. Avoid alcohol. Keep Others Healthy The virus can spread to others. Droplets are released every time you sneeze or cough. The droplets can get into the mouth, nose, or eyes of people near you and lead to infection. To lower the chances of spreading COVID-19 to others: Stay at home until your doctor has said it is safe to leave. If you tested positive this will mean staying isolated until both of the following are true: At least 7 days have passed since the start of illness. You are free of fever for at least 72 hours without the use of medicine. During this time: - Avoid public areas, events, or transportation. Do not return to work or school until your doctor has said it is safe to do so. - Call ahead if you need to go to a medical center. Let them know you may have COVID-19. It will help them guide you where to go. They may also ask you to wear a facemask when you come to the office. - If you call for emergency medical services, let them know you may have COVID- 19. While at home: - Try to avoid close contact with others. Stay about 6 feet away. - If possible, spend most of your time in a separate room from others. - Use a face mask if you will be in close contact with others such as sharing a room or vehicle. - Have someone wipe down common surfaces in the home. Use household manager contact every day on areas like doorknobs, counters, or sinks. - Cough or sneeze into a tissue. Throw the tissue away right after use. If a tissue is not available, cough or sneeze into your elbow. - Wash your hands often. Wash them after sneezing or coughing. Use soap and wa ter and wash for at least 20 seconds. Alcohol based hand venetian blind cleaner can be used if soap and water is not available. - Do not prepare food for others. Avoid sharing personal items like forks, spoons, or toothbrushes. - Avoid close contact with pets while you are sick. There is no evidence of the virus passing to pets. This is a safety step until more is known about this virus. Isolation can be frustrating. Social interaction can help. Keep in touch with friends and family through phone and tech options. You can still interact with others in your home, just keep a safe distance of about 6 feet. Follow-up: Your doctors office will check in with you to see if there are any changes in your health. You may be asked to keep track of symptoms to share with them. They will also let you know when you are clear to be in public again. Problems to Look Out For: Contact your doctor if your recovery is not going as you expect. Get emergency care if you have problems such as: - Trouble breathing - Nonstop chest pain or pressure - Changes in awareness, confusion, or problems waking - Lips or face have bluish color - Worsening of symptoms If you think you have an emergency, call for emergency medical services right away. As taken from [facility] Prednisone (PREDNISONE) 20 Mg Tablet 2 TAB PO DAILY for COPD, #8 TAB Start this prescription tomorrow, Monday10/23/20 Prov: MERARY NAVARRO DO 10/22/20 COVID-19 Assessment COVID-19 Patient Risks: Age 65 or older: Yes Sign of co-morbidity: Yes Exp to person + for COVID: No Exp to PUI: No Travel from affected area: No Lower respiratory symptoms: Yes Fever: No Other: No (MERARY NAVARRO DO) PPE Use: Full PPE with N95 mask or PAPR: Yes (MERARY NAVARRO DO) Dragon Disclaimer This chart was dictated in whole or in part using Voice Recognition software in a busy, high-work load, and often noisy Emergency Department environment. It may contain unintended and wholly unrecognized errors or omissions. (PEDRO MARIE MD) MERARY NAVARRO DO October 22, 2020 16:17 PEDRO MARIE MD October 22, 2020 18:18
[2020-10-22 16:20] LABS: BASO # 0.1 x10^3/uL (0.0-0.2); BASO % 1 % (0-3); EOS # 0.2 x10^3/uL (0.0-0.7); EOS % 2 % (0-3); HEMOGLOBIN 10.2 g/dL (12.0-15.5); LYMPH # 1.7 x10^3/uL (1.0-4.8); LYMPH % 19 % (24-48); MEAN CORPUSCULAR HEMOGLOBIN 27 pg (25-35); MEAN CORPUSCULAR HGB CONC 32 g/dL (31-37); MEAN CORPUSCULAR VOLUME 84 fL (79-100); MONO # 0.6 x10^3/uL (0.0-1.1); MONO % 7 % (0-9); NEUT # 6.4 x10^3uL (1.8-7.7); NEUT % 71 % (31-73); PLATELET COUNT 267 x10^3/uL (140-400); RED CELL DISTRIBUTION WIDTH 15.1 % (11.5-14.5)
[2020-10-22 16:30] LABS: ANION GAP 6 (6-14); BLOOD UREA NITROGEN 28 mg/dL (7-20); BUN/CREATININE RATIO 31 (6-20); CALCIUM 9.1 mg/dL (8.5-10.1); CARBON DIOXIDE 34 mmol/L (21-32); CHLORIDE 104 mmol/L (98-107); CREATININE 0.9 mg/dL (0.6-1.0); GFR 74.7; GLUCOSE 94 mg/dL (70-99); POTASSIUM 4.2 mmol/L (3.5-5.1); SODIUM 144 mmol/L (136-145)
[2020-10-22 16:48] LABS: ALBUMIN 3.3 g/dL (3.4-5.0); ALBUMIN/GLOBULIN RATIO 0.8 (1.0-1.7); ALK PHOS 98 U/L (46-116); ALT (SGPT) 18 U/L (14-59); AST (SGOT) 17 U/L (15-37); TOTAL BILIRUBIN 0.2 mg/dL (0.2-1.0); TOTAL PROTEIN 7.4 g/dL (6.4-8.2)
--- NOTE | 2020-10-22 16:58 | RAD ---
Study: CT CHEST WITH CONTRAST - PULMONARY ANGIOGRAM History: Shortness of air. Cough. Pulmonary embolism. Comparison: 05/30/2020 Technique: Helical CT of the chest performed after the administration of 100 cc intravenous contrast and timed for angiographic evaluation of the pulmonary arteries per PE protocol. Coronal and sagitta l 3D MIP reformations were obtained. One or more of the following individualized dose reduction techniques were utilized for this examinat ion: 1. Automated exposure control 2. Adjustment of the mA and/or kV according to patient size 3. Use of iterative reconstruction technique. Findings: Pulmonary Arteries: Limited study for the detection of pulmonary emboli due to a combination of bolus timing, respiratory motion and patient body habitus. Much of the segmental/subsegmental arteries are incompletely assessed, particularly at the lower lungs. No saddle, main or lobar pulmonary embolism is identified. Main pulmonary artery caliber is within normal limits. Heart/Systemic Vasculature: No aortic dissection or aneurysm. Multifocal calcified and noncalcified a theromatous plaque to include coronary artery involvement. Estimated 30 percent stenosis at the proxi mal left subclavian artery is unchanged. Mediastinum: No adenopathy or pericardial effusion. Small hiatal hernia. Lungs: Basilar predominant volume loss. Asymmetric elevation of the right hemidiaphragm. No lobar con solidation. The central airways are patent. No pleural effusion or pneumothorax. Neck/Axilla/Body Wall: No interval change. Upper Abdomen: Right renal cyst. Bones: Advanced arthrosis of both shoulders. Chronic L1 compression deformity also seen on the 10/20/19 21 lumbar spine radiographs. Multilevel spondylosis. Broad thoracic dextrocurvature. Miscellaneous: None. IMPRESSION: 1. Incomplete assessment of the peripheral pulmonary arteries particularly at the lower lungs due to a combination of respiratory motion, bolus timing and patient body habitus. Taking this into conside ration no pulmonary embolism is identified. 2. Redemonstrated asymmetric elevation of the right hemidiaphragm. Bibasilar volume loss. Additional chronic observations outlined in the body the report. Electronically signed by: MAURISIO CHAVARRIA MD (10/22/2020 4:56 PM) [facility]
--- NOTE | 2020-10-22 17:27 | EKG ---
[address] [address] Test Date: 2020-10-22 Test Time: 16:25:42 Pat Name: ALIREZA PETERSON Department: Room: Gender: F Director Ehs: LORENZO : 1950 Requested By: MERARY NAVARRO Order Number: [id number] Reading MD: Measurements Intervals [place] Rate: 79 P: 33 TN: 178 QRS: -10 QRSD: 82 T: 20 QT: 376 QTc: 437 Interpretive Statements SINUS RHYTHM LEFTWARD AXIS NO SPECIFIC ECG ABNORMALITIES RI6.02 No previous ECG available for comparison
[2020-10-22] MEDS ORDERED: DEXAMETHASONE 4 MG TABLET PO ONE (17:30)
[2020-10-22] MEDS ORDERED: PRED20TA PO (17:31)
[2020-10-22 18:25] VITALS: BP 111/47
== END 2020-10-22 18:35 | disposition home or self-care (01) ==
LOC: ER 15:12
DX: J44.1 Chronic obstructive pulmonary disease with (acute) exacerbation (principal); I11.0 Hypertensive heart disease with heart failure; I50.9 Heart failure, unspecified; K21.9 Gastro-esophageal reflux disease without esophagitis; F41.9 Anxiety disorder, unspecified; Z20.822 Contact with and (suspected) exposure to COVID-19; Z86.73 Personal history of transient ischemic attack (TIA), and cerebral infarction without residual deficits
CPT/HCPCS: 36415; 71275; 80053; 81001; 82553; 83605; 83735; 83880; 84484; 85025; 85610; 85730; 93005; 99285; C9803; J8540; Q9967; U0003

== ENCOUNTER 2021-03-11 15:34 | Emergency (ER) | payer OTHER, MEDICAID ==
[~2021-03-11] VITALS: Ht 152.4 cm; Wt 81.0 kg
--- NOTE | 2021-03-11 16:20 | RAD ---
XR CHEST 1V CLINICAL INDICATIONS: Reason: DYSPNEA, COUGH, HX COPD, ASTHMA / Spl. Instructions: / History: COMPARISON: August 31, 2020. Findings: There is chronic elevation of the right hemidiaphragm. Mild blunting of the lateral costoph renic angles is seen bilaterally consistent with small pleural effusions. There is cephalization of p ulmonary flow. No pulmonary edema or lung consolidation or pneumothorax is seen. The heart size and m ediastinum are stable. IMPRESSION: Small bilateral pleural effusions and cephalization of pulmonary flow indicative of mild CHF. Electronically signed by: Derian Herrera MD (03/11/2021 4:18 PM) [id number]
[2021-03-11 16:23] VITALS: BP 165/96
--- NOTE | 2021-03-11 16:33 | PHYS DOC ---
Past History Past Medical History: Anxiety, Arthritis, CHF, COPD, Depression, GERD, Hypertension, TIA Additional Past Medical Histor: BLOOD CLOTS Past Surgical History: Additional Past Surgical Histo: ORIF left wrist Smoking: Non-smoker Alcohol Use: None Drug Use: None General Adult EDM: Chief Complaint: SHORTNESS OF BREATH HPI: HPI: Patient is a 70-year-old female with cough productive of yellow phlegm, shortness of breath, loose stools, and congestion for the past 2 days. Patient denies any known sick contacts. Patient has a history of COPD and CHF, has nebulizer at home but has not used it today. Is on baseline 2 L nasal cannula does not have to go up on her oxygen requirements. Patient has not been vaccinated against COVID-19. Patient is unsure if she has had her pneumococcal vaccines. Patient denies any smoking or smoke exposure. Review of Systems: Review of Systems: All other systems within normal limits except for as noted in the HPI Allergies: Allergies: Allergies Coded Allergies Type Severity Reaction Last Updated Verified levetiracetam Adverse Reaction Intermediate Hallucinations 10/22/20 Yes Physical Exam: PE: Constitutional: Well developed, well nourished, no acute distress, non-toxic appearance. [] HENT: Normocephalic, atraumatic, bilateral external ears normal, nose normal. [] Eyes: PERRLA, conjunctiva normal, no discharge. [] Neck: No rigidity, supple, no stridor. [] Cardiovascular: Regular rate and rhythm, brisk cap refill [] Lungs & Thorax: Non labored symmetric respirations, no tachypnea or respiratory distress [] Abdomen: Soft, nondistended. Skin: Warm, dry, no erythema, no rash. [] Back: Unremarkable Extremities: No deformities, range of motion grossly intact, no lower extremity edema [] Neurologic: Alert and oriented X 3, no focal deficits noted. [] Psychologic: Affect normal, judgement normal, mood normal. [] Current Patient Data: Vital Signs: Vital Signs Date Time Temp Pulse Resp B/P (MAP) Pulse Ox O2 Delivery O2 Flow Rate FiO2 03/11/21 16:23 99.1 87 26 165/96 (119) 95 Nasal Cannula 2.0 EKG: EKG: Sinus rhythm, heart rate 72 bpm, left axis deviation, no ST elevation or depression, no ectopy [] Radiology/Procedures: Radiology/Procedures: [address] [address] IMAGING REPORT Signed PATIENT: ALIREZA PETERSON: [id number] : 1950 LOCATION: ER AGE: 70 SEX: F EXAM STATUS: REG ER ORD. PHYSICIAN: DONELL JACOBSON MD REASON: DYSPNEA, COUGH, HX COPD, ASTHMA PROCEDURE: CHEST AP ONLY XR CHEST 1V CLINICAL INDICATIONS: Reason: DYSPNEA, COUGH, HX COPD, ASTHMA / Spl. Instructions: / History: COMPARISON: August 31, 2020. Findings: There is chronic elevation of the right hemidiaphragm. Mild blunting of the lateral costophrenic angles is seen bilaterally consistent with small pleural effusions. There is cephalization of pulmonary flow. No pulmonary edema or lung consolidation or pneumothorax is seen. The heart size and mediastinum are stable. IMPRESSION: Small bilateral pleural effusions and cephalization of pulmonary flow indicative of mild CHF. Electronically signed by: Lauryn Herrera MD (03/11/2021 4:18 PM) [id number] DICTATED AND SIGNED BY: LAURYN HERRERA MD DATE: 03/11/21 1616 CC: DONELL JACOBSON MD; JOAY MURRAY MD ~MTH0 0 [] Heart Score: C/O Chest Pain: No HEART Score for Chest Pain: HEART Score for Chest Pain Response (Comments) Value History Slighlty/Non-Suspicious 0 ECG Normal 0 Age > 65 2 Risk Factors 1 or 2 Risk Factors 1 Troponin < Normal Limit 0 Total 3 Risk Factors: Risk Factors: DM, Current or recent (<one month) smoker, HTN, HLP, family history of CAD, obesity. Risk Scores: Score 0 - 3: 2.5% MACE over next 6 weeks - Discharge Home Score 4 - 6: 20.3% MACE over next 6 weeks - Admit for Clinical Observation Score 7 - 10: 72.7% MACE over next 6 weeks - Early Invasive Strategies Course & Med Decision Making: Course & Med Decision Making Pertinent Labs and Imaging studies reviewed. (See chart for details) [] Dragon Disclaimer: Dragon Disclaimer: This electronic medical record was generated, in whole or in part, using a voice recognition dictation system. Departure Departure: Impression: Primary Impression: Person under investigation for COVID-19 Additional Impression: COPD with exacerbation Disposition: 01 HOME / SELF CARE / HOMELESS Condition: STABLE Referrals: JOYA MURRAY MD (PCP) Additional Instructions: You have been tested for or diagnosed with COVID-19. It is an infection caused by a new type of coronavirus. COVID-19 will cause cold-like or mild flu symptoms in most. It can cause more severe symptoms like problems breathing in some. There is no treatment for COVID-19. The body will clear the infection over time. Self-care will help to ease discomfort. Steps to Take: Self-Care Rest as needed. Healthy habits may help you feel better. Steps include: Choose healthy foods including fruits and vegetables. Drink water throughout the day. Get plenty of sleep each night. If you smoke, try to quit. It may ease breathing. Avoid alcohol. Keep Others Healthy The virus can spread to others. Droplets are released every time you sneeze or cough. The droplets can get into the mouth, nose, or eyes of people near you and lead to infection. To lower the chances of spreading COVID-19 to others: Stay at home until your doctor has said it is safe to leave. If you tested posi tive this will mean staying isolated until both of the following are true: At least 7 days have passed since the start of illness. You are free of fever for at least 72 hours without the use of medicine. During this time: - Avoid public areas, events, or transportation. Do not return to work or school until your doctor has said it is safe to do so. - Call ahead if you need to go to a medical center. Let them know you may have COVID-19. It will help them guide you where to go. They may also ask you to wear a facemask when you come to the office. - If you call for emergency medical services, let them know you may have COVID- 19. While at home: - Try to avoid close contact with others. Stay about 6 feet away. - If possible, spend most of your time in a separate room from others. - Use a face mask if you will be in close contact with others such as sharing a room or vehicle. - Have someone wipe down common surfaces in the home. Use household tool hardener every day on areas like doorknobs, counters, or sinks. - Cough or sneeze into a tissue. Throw the tissue away right after use. If a tissue is not available, cough or sneeze into your elbow. - Wash your hands often. Wash them after sneezing or coughing. Use soap and water and wash for at least 20 seconds. Alcohol based hand equipment cleaner can be used if soap and water is not available. - Do not prepare food for others. Avoid sharing personal items like forks, spoons, or toothbrushes. - Avoid close contact with pets while you are sick. There is no evidence of the virus passing to pets. This is a safety step until more is known about this virus. Isolation can be frustrating. Social interaction can help. Keep in touch with friends and family through phone and tech options. You can still interact with others in your home, just keep a safe distance of about 6 feet. Follow-up: Your doctors office will check in with you to see if there are any changes in your health. You may be asked to keep track of symptoms to share with them. They will also let you know when you are clear to be in public again. Problems to Look Out For: Contact your doctor if your recovery is not going as you expect. Get emergency care if you have problems such as: - Trouble breathing - Nonstop chest pain or pressure - Changes in awareness, confusion, or problems waking - Lips or face have bluish color - Worsening of symptoms If you think you have an emergency, call for emergency medical services right away. As taken from [facility] Health Scripts Amoxicillin/Potassium Clav (AUGMENTIN 875-125 TABLET) 1 Each Tablet 1 TAB PO BID for antibiotic for 5 Days, #10 TAB 0 Refills Prov: DONELL JACOBSON MD 03/11/21 Prednisone (PREDNISONE) 50 Mg Tablet 1 TAB PO DAILY for steroid for 4 Days, #4 TAB You received this medication in the emergency room today. You will starting your next dose tomorrow. Prov: DONELL JACOBSON MD 03/11/21 DONELL JACOBSON MD Mar 11, 2021 16:33
[2021-03-11 16:39] LABS: BASO # 0.1 x10^3/uL (0.0-0.2); BASO % 1 % (0-3); EOS % 0 % (0-3); HEMATOCRIT 38.7 % (36.0-47.0); HEMOGLOBIN 12.3 g/dL (12.0-15.5); LYMPH # 1.2 x10^3/uL (1.0-4.8); LYMPH % 12 % (24-48); MEAN CORPUSCULAR HEMOGLOBIN 26 pg (25-35); MEAN CORPUSCULAR HGB CONC 32 g/dL (31-37); MEAN CORPUSCULAR VOLUME 81 fL (79-100); MONO # 0.8 x10^3/uL (0.0-1.1); MONO % 8 % (0-9); NEUT # 7.8 x10^3uL (1.8-7.7); NEUT % 79 % (31-73); PLATELET COUNT 388 x10^3/uL (140-400)
[2021-03-11 16:45] LABS: CALCIUM 9.3 mg/dL (8.5-10.1); CREATININE 1.3 mg/dL (0.6-1.0); GFR 48.7; POTASSIUM 4.7 mmol/L (3.5-5.1)
[2021-03-11 16:57] LABS: ALBUMIN 3.7 g/dL (3.4-5.0); ALBUMIN/GLOBULIN RATIO 0.8 (1.0-1.7); TOTAL BILIRUBIN 0.3 mg/dL (0.2-1.0); TOTAL PROTEIN 8.2 g/dL (6.4-8.2)
[2021-03-11 17:03] LABS: INFLUENZA A PATIENT NEGATIVE (NEGATIVE); INFLUENZA B PATIENT NEGATIVE (NEGATIVE)
[2021-03-11] MEDS ORDERED: AMOX1TAB61 PO (17:23)
[2021-03-11] MEDS ORDERED: PRED50TA PO (17:23)
--- NOTE | 2021-03-11 17:45 | EKG ---
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
--- NOTE | 2021-03-12 09:45 | NUR ---
IP: Patient was notified of negative COVID19 test result. Verbalized understanding.
== END 2021-03-11 18:14 | disposition home or self-care (01) ==
LOC: ER 15:34
DX: J44.1 Chronic obstructive pulmonary disease with (acute) exacerbation (principal); K21.9 Gastro-esophageal reflux disease without esophagitis; G45.9 Transient cerebral ischemic attack, unspecified; Z20.822 Contact with and (suspected) exposure to COVID-19
CPT/HCPCS: 71045; 80053; 82803; 83880; 84484; 85025; 87804; 93005; 99285; U0003

== ENCOUNTER 2021-07-23 18:18 | Emergency (ER) | payer OTHER, MEDICAID ==
[~2021-07-23] VITALS: Ht 152.4 cm; Wt 83.0 kg
[~2021-07-23 18:18] MED LIST changes: +AMOX1TAB61 PO; +POTA-112 PO; -POTA10TA5 PO
--- NOTE | 2021-07-23 18:34 | PHYS DOC ---
Past History Past Medical History: Anxiety, Arthritis, CHF, COPD, Depression, GERD, Hypertension, TIA Additional Past Medical Histor: BLOOD CLOTS Past Surgical History: Additional Past Surgical Histo: ORIF left wrist Smoking: Non-smoker Alcohol Use: None Drug Use: None General Adult HPI: HPI: ".,I ve been short of breath.. and some chest discomfort today..." .." I also had some diarrhea. Patient is a 70 year old who presents with above history and complaints of diarrhea, chest pain, dyspnea. Patient normally follows with Dr. Bourgeois. P atient has not gotten flu vaccination patient has not gotten COVID vaccination. No recent travel. No history of trauma. Patient has past medical history of hypercapnic respiratory failure, pulmonary emboli, chronic respiratory failure, chronic obstructive pulmonary disease, anxiety, anemia chronic disease, , hypertension, left wrist fracture, with internal fixation and reduction. Has had , EGDs and colonoscopy evaluation for GI complaints of GERD and generalized abdomen pain. Patient presents today with centralized abdomen epigastric pain and chest pain. No consistent radiation. Patient has not gotten COVID vaccination or flu vaccination. Patient only follows with Dr. Bourgeois. Review of Systems: Review of Systems: Constitutional: Denies fever or chills Eyes: Denies change in visual acuity HENT: Denies nasal congestion or sore throat Respiratory: Denies cough or shortness of breath Cardiovascular: Denies chest pain or edema GI: Denies abdominal pain, nausea, vomiting, bloody stools or diarrhea : Denies dysuria Musculoskeletal: Denies back pain or joint pain Integument: Denies rash Neurologic: Denies headache, focal weakness or sensory changes Endocrine: Denies polyuria or polydipsia Lymphatic: Denies swollen glands Psychiatric: Denies depression or anxiety Family History: Family History: Family history is significant for 6 brothers for of myocardial infarction and CVAs. 2 brothers are still alive. Had 4 sisters 2 of them in childhood secondary to heart failure. Father age 76 because of SD mother age 71 because of SD. Patient has 1 son. 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 [] HENT: Normocephalic, atraumatic, bilateral external ears normal, oropharynx moist, no oral exudates, nose normal. [] Eyes: PERRLA, EOMI, conjunctiva normal, no discharge. Glasses Neck: Normal range of motion, no tenderness, supple, no stridor. Neck more than 17 inches circumference Cardiovascular: Tachycardia heart rate regular rhythm, no murmur [], PMI to the left Lungs & Thorax: Bilateral breath sounds to apex with scattered wheezes and basilar crackles bilaterally on auscultation [] Abdomen: Bowel sounds normal, soft, no tenderness, no masses, no pulsatile masses. Obese. Old surgery scars. Skin: Warm, dry, no erythema, no rash. Poor turgor. Back: No tenderness, no CVA tenderness. [] Extremities: No tenderness, no cyanosis, no clubbing, ROM intact, bilateral ankle edema. [] No findings of significant cording in legs. Arthritic changes. Neurologic: Alert and oriented X 3, moves all extremities on request, does have distal sensory, no focal deficits noted. [] Psychologic: Affect anxious, judgement normal, mood normal. [] EKG: EKG: My interpretation EKG shows a sinus tachycardia 103 bpm. There is some leftward axis changes. But no findings acute STEMI with contralateral changes. There is nonspecific contour strain pattern in inferior leads. Time of EKG is 1846 [] Radiology/Procedures: Radiology/Procedures: [[address] [address] IMAGING REPORT Signed PATIENT: ALIREZA PETERSONCOUNT: [id number] : 1950 LOCATION: ER AGE: 70 SEX: F EXAM STATUS: REG ER ORD. PHYSICIAN: PEDRO RODRIGUEZ MD REASON: Abd. pain, short of breath. PROCEDURE: ACUTE ABDOMEN SERIES PA chest and AP upright spine abdomen x-rays HISTORY: Abdominal pain. Shortness breath. COMPARISON: Chest x-ray March 11, 2021 FINDINGS: Mild elevation of the right diaphragm similar to the prior study. Heart size normal. No pneumothorax. No pleural effusions. Opacity right upper lobe silhouetting the minor fissure and mild left lower lobe opacity. No pneumoperitoneum. Minor fissure thickening. Pelvic calcifications indeterminate statistically most likely phleboliths. There is mild gas within the large bowel. No dilated bowel loops. Mild stool within the right-sided large bowel. Lumbar disc osteophytes. IMPRESSION: 1. No bowel obstruction evident. 2. Pulmonary opacities and mild fissural thickening. Indicate pulmonary edema. Multilobar pneumonia with superimposed edema would also be a consideration. Electronically signed by: Aki Montgomery MD (07/23/2021 7:06 PM) [facility] DICTATED AND SIGNED BY: AKI MONTGOMERY MD DATE: 07/23/211902 CC: PEDRO RODRIGUEZ MD; JOYA BOURGEOIS MD ~[facility]0 0 ][place] [address] IMAGING REPORT Signed PATIENT: ALIREZA PETERSON JACCOUNT: [id number] : 1950 LOCATION: ER AGE: 70 SEX: F EXAM STATUS: REG ER ORD. PHYSICIAN: PEDRO RODRIGUEZ MD REASON: Abd. pain, short of breath. PROCEDURE: ACUTE ABDOMEN SERIES PA chest and AP upright spine abdomen x-rays HISTORY: Abdominal pain. Shortness breath. COMPARISON: Chest x-ray March 11, 2021 FINDINGS: Mild elevation of the right diaphragm similar to the prior study. Heart size normal. No pneumothorax. No pleural effusions. Opacity right upper lobe silhouetting the minor fissure and mild left lower lobe opacity. No pneumoperitoneum. Minor fissure thickening. Pelvic calcifications indeterminate statistically most likely phleboliths. There is mild gas within the large bowel. No dilated bowel loops. Mild stool within the right-sided large bowel. Lumbar disc osteophytes. IMPRESSION: 1. No bowel obstruction evident. 2. Pulmonary opacities and mild fissural thickening. Indicate pulmonary edema. Multilobar pneumonia with superimposed edema would also be a consideration. Electronically signed by: Aki Montgomery MD (07/23/2021 7:06 PM) [facility] DICTATED AND SIGNED BY: AKI MONTGOMERY MD DATE: 07/23/211902 CC: PEDRO RODRIGUEZ MD; JOYA BOURGEOIS MD ~MTH0 0 Heart Score: C/O Chest Pain: Yes HEART Score for Chest Pain: HEART Score for Chest Pain Response (Comments) Value History Moderately Suspicious 1 ECG Nonspecific Repolarizatio 1 Age > 65 2 Risk Factors 1 or 2 Risk Factors 1 Troponin < Normal Limit 0 Total 5 Risk Factors: Risk Factors: DM, Current or recent (<one month) smoker, HTN, HLP, family history of CAD, obesity. Risk Scores: Score 0 - 3: 2.5% MACE over next 6 weeks - Discharge Home Score 4 - 6: 20.3% MACE over next 6 weeks - Admit for Clinical Observation Score 7 - 10: 72.7% MACE over next 6 weeks - Early Invasive Strategies Course & Med Decision Making: Course & Med Decision Making Pertinent Labs and Imaging studies reviewed. (See chart for details) Patient to continue her Eliquis at a slightly higher dose. 5 or 10 mg twice a day. Patient follow-up with Dr. Bourgeois. Patient to self isolate. Wear a mask covering nose and mouth at all times. Have primary review ED record. Return if any concerns. Take Zithromax 250 a day for 5 days. Use MDI 2 puffs 4 times a day. Impression: 1. Atypical pneumonia-suspect viral 2. Suspect Covid infection 3. Mild anemia hemoglobin 11.3 4. Renal insufficiency BUN 21 creatinine 1.6 5. Diabetes glucose 121 6. Elevated D-dimer 0.91 [] Dragon Disclaimer: Dragon Disclaimer: This electronic medical record was generated, in whole or in part, using a voice recognition dictation system. Departure Departure: Referrals: JOYA BOURGEOIS MD (PCP) Scripts Azithromycin (ZITHROMAX) 250 Mg Tablet 250 MG PO DAILY for ANTI-BIOTIC for 5 Days, #5 TAB 0 Refills Prov: PEDRO RODRIGUEZ MD 07/23/21 Apixaban (ELIQUIS) 5 Mg Tablet 10 MG PO BID for CP, suspect COVid for 7 Days, #28 TAB Prov: PEDRO RODRIGUEZ MD 07/23/21 Dragon Disclaimer This chart was dictated in whole or in part using Voice Recognition software in a busy, high-work load, and often noisy Emergency Department environment. It may contain unintended and wholly unrecognized errors or omissions. Dragon Disclaimer This chart was dictated in whole or in part using Voice Recognition software in a busy, high-work load, and often noisy Emergency Department environment. It may contain unintended and wholly unrecognized errors or omissions. Dragon Disclaimer This chart was dictated in whole or in part using Voice Recognition software in a busy, high-work load, and often noisy Emergency Department environment. It may contain unintended and wholly unrecognized errors or omissions. PEDRO RODRIGUEZ MD Jul 23, 2021 18:34
[2021-07-23] MEDS ORDERED: ASPIRIN CHEWABLE 81 MG TABLET. PO ONE (18:45)
[2021-07-23] MEDS ORDERED: IV RINGERS SOLUTION,LACTATED 1,000 ML IV SCH (18:45)
--- NOTE | 2021-07-23 18:56 | EKG ---
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
--- NOTE | 2021-07-23 19:08 | RAD ---
PA chest and AP upright spine abdomen x-rays HISTORY: Abdominal pain. Shortness breath. COMPARISON: Chest x-ray March 11, 2021 FINDINGS: Mild elevation of the right diaphragm similar to the prior study. Heart size normal. No pne umothorax. No pleural effusions. Opacity right upper lobe silhouetting the minor fissure and mild lef t lower lobe opacity. No pneumoperitoneum. Minor fissure thickening. Pelvic calcifications indetermin ate statistically most likely phleboliths. There is mild gas within the large bowel. No dilated bowel loops. Mild stool within the right-sided large bowel. Lumbar disc osteophytes. IMPRESSION: 1. No bowel obstruction evident. 2. Pulmonary opacities and mild fissural thickening. Indicate pulmonary edema. Multilobar pneumonia w ith superimposed edema would also be a consideration. Electronically signed by: Brendon Montgomery MD (07/23/2021 7:06 PM) [facility]
[2021-07-23 19:09] LABS: BASO % 1 % (0-3); EOS # 0.1 x10^3/uL (0.0-0.7); EOS % 3 % (0-3); HEMATOCRIT 33.8 % (36.0-47.0); HEMOGLOBIN 11.3 g/dL (12.0-15.5); LYMPH # 1.5 x10^3/uL (1.0-4.8); LYMPH % 28 % (24-48); MEAN CORPUSCULAR HEMOGLOBIN 27 pg (25-35); MEAN CORPUSCULAR HGB CONC 33 g/dL (31-37); MEAN CORPUSCULAR VOLUME 81 fL (79-100); MONO # 0.7 x10^3/uL (0.0-1.1); MONO % 14 % (0-9); NEUT # 2.9 x10^3uL (1.8-7.7); NEUT % 55 % (31-73); PLATELET COUNT 357 x10^3/uL (140-400); RED BLOOD COUNT 4.16 x10^6/uL (3.50-5.40); RED CELL DISTRIBUTION WIDTH 14.3 % (11.5-14.5); WHITE BLOOD COUNT 5.2 x10^3/uL (4.0-11.0)
[2021-07-23 19:18] LABS: CALCIUM 9.3 mg/dL (8.5-10.1); CREATININE 1.6 mg/dL (0.6-1.0); GFR 38.3; POTASSIUM 4.2 mmol/L (3.5-5.1)
[2021-07-23 19:31] LABS: ALBUMIN 3.6 g/dL (3.4-5.0); DIRECT BILIRUBIN 0.1 mg/dL (0.0-0.2); MAGNESIUM 2.1 mg/dL (1.8-2.4); TOTAL BILIRUBIN 0.2 mg/dL (0.2-1.0)
[2021-07-23 19:35] LABS: BARBITURATES NEG (NEG); BENZODIAZEPINES NEG (NEG); CANNABINOIDS NEG (NEG); COCAINE NEG (NEG); METHADONE NEG (NEG); OPIATES NEG (NEG); PHENCYCLIDINE NEG (NEG)
[2021-07-23 19:40] LABS: AMPHETAMINE/METHAMPHETAMINE NEG (NEG)
[2021-07-23 19:46] LABS: BACTERIA,URINE 0 /HPF (0-FEW); BILIRUBIN,URINE SMALL (NEG); CLARITY,URINE CLEAR; COLOR,URINE YELLOW; GLUCOSE,URINE NEG (NEG); NITRITE,URINE NEG (NEG); RBC,URINE OCC /HPF (0-2); SQUAMOUS EPITHELIAL CELL,UR MANY /LPF; UROBILINOGEN,URINE 0.2 mg/dL (0.2 mg/dL); WBC,URINE 0 /HPF (0-4)
[2021-07-23 20:00] VITALS: BP 128/64
[2021-07-23] MEDS ORDERED: AZITHROMYCIN 250 MG TABLET. PO ONE (20:30)
[2021-07-23] MEDS ORDERED: ALBUTEROL SULFATE 8GM INHALER. INH ONE (20:30)
[2021-07-23 21:01] LABS: INFLUENZA A PATIENT NEGATIVE (NEGATIVE); INFLUENZA B PATIENT NEGATIVE (NEGATIVE)
[2021-07-23] MEDS ORDERED: APIX5TAB3 PO (22:14)
[2021-07-23] MEDS ORDERED: AZIT250T PO (22:14)
== END 2021-07-23 22:42 | disposition home or self-care (01) ==
LOC: ER 18:18
DX: J18.9 Pneumonia, unspecified organism (principal); D64.9 Anemia, unspecified; N28.9 Disorder of kidney and ureter, unspecified; E11.9 Type 2 diabetes mellitus without complications; R79.1 Abnormal coagulation profile; F41.9 Anxiety disorder, unspecified; M19.90 Unspecified osteoarthritis, unspecified site; I11.0 Hypertensive heart disease with heart failure; I50.9 Heart failure, unspecified; J44.9 Chronic obstructive pulmonary disease, unspecified; K21.9 Gastro-esophageal reflux disease without esophagitis; Z20.822 Contact with and (suspected) exposure to COVID-19; Z86.73 Personal history of transient ischemic attack (TIA), and cerebral infarction without residual deficits; Z86.711 Personal history of pulmonary embolism; Z88.8 Allergy status to other drugs, medicaments and biological substances
CPT/HCPCS: 36415; 74022; 80048; 80076; 80307; 81001; 82550; 83690; 83735; 83880; 84443; 84484; 85025; 85379; 85610; 85730; 87428; 93005; 94640; 96360; 96361; 99285; J7120; 94664